=== PATIENT | male | born 1940 | race Caucasian/White ===

== ENCOUNTER 2016-12-11 17:20 | Emergency (ER) | payer OTHER ==
[~2016-12-11] VITALS: Ht 172.7 cm; Wt 82.2 kg
[~2016-12-11 17:20] MED LIST: ACET-1256 PO; ALFU10TA2 PO; AMIO200T4 PO; ASPCH81X PO; CMD/25 PO; IPRA0.032 NAE; LISI40TA PO; METO50TA16 PO; PENI-82 PO; REPA1TAB40 PO; ROSU40TA PO; TRAM-10 PO
[2016-12-11 17:29] VITALS: TEMP 36.8; Ht 172.7 cm; Wt 82.2 kg
--- NOTE | 2016-12-11 18:32 | EMERGENCY ROOM VISIT NOTE ---
History Report prepared by Anna Marie: Farrah Vanegas Under the Supervision of: Dr. Roland Redd M.D. First contact with patient: 18:21 Chief Complaint: SWELLING TO EXTREMITY Stated Complaint: SWELLING & DISCOLORATION OF LF LEG & ANKLE History of Present Illness The patient is a 76 year old male who presents to the Emergency Room with complaints of constant swelling to the left lower extremity beginning one week prior to arrival. The patient states that he hit is leg while working in his basement last week. Since then bruising has worsened. The patient is experiencing pain with walking. He denies numbness to foot or abdominal pain. The patient is on Coumadin and his level this morning was 2.8. He denies any other symptoms at this time. 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 Review of Systems See HPI for pertinent positives & negatives. A total of 10 systems reviewed and were otherwise negative. Past Medical & Surgical Medical Problems: (1) Dyslipidemia (2) Hypertension (3) Paroxysmal atrial fibrillation (4) Type 2 diabetes mellitus Surgical Problems: (1) Hx of tonsillectomy Family History FHx: heart disease Social History Smoking Status: Never Smoker Alcohol Use: none Marital Status: Housing Status: lives with family Occupation Status: retired Current/Historical Medications Scheduled Alfuzosin Hcl (Uroxatral), 10 MG PO DAILY Amiodarone Hcl (Cordarone), 100 MG PO DAILY Aspirin (Aspirin Chewable), 81 MG PO DAILY Diclofenac Sodium (Topical) (Voltaren 1% Top Gel), 1 APPLN TOP PRN UD Ipratropium [place] (Nasal) (Atrovent), 2 PUFFS KLARISSA TID PRN Lisinopril (Zestril), 40 MG PO DAILY Metformin Hcl (Glucophage), 500 MG PO DAILY Metoprolol Tartrate (Lopressor) (Lopressor), 12.5 MG PO BID Repaglinide (Prandin), 2 MG PO AC Rosuvastatin Calcium (Crestor), 40 MG PO DAILY Sitagliptin Phosphate (Januvia), 100 MG PO DAILY Tramadol (Ultram), 50 MG PO TID PRN Warfarin Sod (Coumadin), 1.25 MG PO WK Warfarin Sod (Coumadin), 2.5 MG PO mon & fri Scheduled PRN Acetaminophen (Tylenol), 2 TAB PO Q6 PRN for Pain or Fever Allergies Coded Allergies: Codeine (Verified Allergy, Mild, RASH, 07/19/16) CAUSES NAUSEA Dust Mite Extract (Verified Allergy, Mild, , 07/19/16) POLLEN (Verified Allergy, Mild, , 07/19/16) Physical Exam Vital Signs Date Time Temp Pulse Resp B/P Pulse Ox O2 Delivery O2 Flow Rate FiO2 12/11/16 20:59 69 18 159/87 97 12/11/16 19:15 69 18 159/87 97 Room Air 12/11/16 17:29 36.8 72 16 156/91 96 Room Air Physical Exam GENERAL: Patient is well appearing and in no acute distress. HEENT: No acute trauma, normocephalic atraumatic, mucous membranes moist, no nasal congestion, no scleral icterus. NECK: No stridor, no adenopathy, no meningismus, trachea is midline. LUNGS: No dyspnea. Clear to auscultation and equal bilaterally. No wheeze, no rhonchi. HEART: Regular rate and rhythm. No murmurs, rubs, gallops appreciated. ABDOMEN: Soft, nontender, bowel sounds positive, no masses appreciated, no peritonitis. BACK: No midline tenderness, no CVA tenderness EXTREMITIES: Ecchymosis and swelling to left anterior lower leg extending to ankle, dependent bruising of left ankle/heel, mild bruising of left lateral distal thigh. Mild abrasion with bruising over left anterior knee. NEUROLOGIC: Alert and oriented, no acute motor or sensory deficits, no focal weakness, cranial nerves grossly intact. SKIN: No rash, no jaundice, no diaphoresis. Medical Decision & Procedures ER Provider Diagnostic Interpretation: X ray results are stated below per my interpretation and the radiologist's interpretation. LEFT KNEE 3 VIEWS HISTORY: left knee trauma COMPARISON: None. FINDINGS: There is no fracture or dislocation. Anterior and lateral soft tissue swelling. No knee effusion. No radiopaque foreign bodies. IMPRESSION: No fractures. Electronically signed by: Galindo Knapp M.D. 12/11/2016 7:10 PM Dictated Date/Time: 12/11/2016 7:09 PM Laboratory Results 12/11/16 18:40 Red Blood Count 4.18, Mean Corpuscular Volume 101.0, Mean Corpuscular Hemoglobin 34.0, Mean Corpuscular Hemoglobin Concent 33.6, Mean Platelet Volume 9.8, Neutrophils (%) (Auto) 61.2, Lymphocytes (%) (Auto) 24.0, Monocytes (%) ( Auto) 12.2, Eosinophils (%) (Auto) 1.8, Basophils (%) (Auto) 0.5, Neutrophils # (Auto) 4.00, Lymphocytes # (Auto) 1.57, Monocytes # (Auto) 0.80, Eosinophils # ( Auto) 0.12, Basophils # (Auto) 0.03 12/11/16 18:40 12/11/16 19:33 Test 12/11/16 18:40 12/11/16 19:33 White Blood Count 6.54 K/uL (4.8-10.8) Red Blood Count 4.18 M/uL (4.7-6.1) Hemoglobin 14.2 g/dL (14.0-18.0) Hematocrit 42.2 % (42-52) Mean Corpuscular Volume 101.0 fL (80-100) Mean Corpuscular Hemoglobin 34.0 pg (25-34) Mean Corpuscular Hemoglobin Concent 33.6 g/dl (32-36) Platelet Count 195 K/uL (130-400) Mean Platelet Volume 9.8 fL (7.4-10.4) Neutrophils (%) (Auto) 61.2 % Lymphocytes (%) (Auto) 24.0 % Monocytes (%) (Auto) 12.2 % Eosinophils (%) (Auto) 1.8 % Basophils (%) (Auto) 0.5 % Neutrophils # (Auto) 4.00 K/uL (1.4-6.5) Lymphocytes # (Auto) 1.57 K/uL (1.2-3.4) Monocytes # (Auto) 0.80 K/uL (0.11-0.59) Eosinophils # (Auto) 0.12 K/uL (0-0.5) Basophils # (Auto) 0.03 K/uL (0-0.2) RDW Standard Deviation 49.5 fL (36.4-46.3) RDW Coefficient of Variation 13.4 % (11.5-14.5) Immature Granulocyte % (Auto) 0.3 % Immature Granulocyte # (Auto) 0.02 K/uL (0.00-0.02) Prothrombin Time 26.2 SECONDS (9.0-12.0) Prothromb Time International Ratio 2.4 (0.9-1.1) Anion Gap 7.0 mmol/L (3-11) Est Creatinine Clear Calc Drug Dose 57.9 ml/min Estimated GFR () 74.1 Estimated GFR (Non- 64.0 BUN/Creatinine Ratio 28.5 (10-20) Calcium Level 9.3 mg/dl (8.5-10.1) Total Creatine Kinase 69 U/L (39-308) Laboratory results as reviewed by me. ED Course 1823: The patient was evaluated in room C7. A complete history and physical exam was performed. 2025: I reevaluated the patient and he is feeling good. 2033: Reevaluated the patient. Discussed results and discharge instructions: He verbalized understanding and agreement. The patient is ready for discharge. Medical Decision Differential: Fracture, Dislocation, Cellulitis, Septic Joint, Ligamentous Injury, Effusion, DVT, amongst other pathologies entertained. 76 yr old male arrives for evaluation of bruising of left lower extremity. Has recent injury to anterior knee while on Coumadin. Bruising consistent with large area of hematoma and dependent drainage. Pulses/sensation/movement intact. No evidence infection. No evidence of compartment syndrome. Stable, no distress and stable throughout stay. Imaging without fracture. No evidence this is DVT and no indication for US at this time. No calf TTP, nor decreased pulses. Impression Primary Impression: Contusion of left knee Additional Impression: Hematoma of left lower extremity Scribe Attestation The scribe's documentation has been prepared under my direction and personally reviewed by me in its entirety. I confirm that the note above accurately reflects all work, treatment, procedures, and medical decision making performed by me. Departure Information Dispostion Home / Self-Care Referrals Ron Constantino D.O. (PCP) Forms HOME CARE DOCUMENTATION FORM, IMPORTANT VISIT INFORMATION, WORK / SCHOOL INSTRUCTIONS Patient Instructions ED Hematoma, My [facility] Health Problem Qualifiers Primary Impression: Contusion of left knee Encounter type: initial encounter Qualified Codes: S80.02XA - Contusion of left knee, initial encounter Additional Impression: Hematoma of left lower extremity Encounter type: initial encounter Qualified Codes: S80.12XA - Contusion of left lower leg, initial encounter
[2016-12-11 18:54] LABS: BASO % 0.5 %; BASO ABS # 0.03 K/uL (0-0.2); COMPLETE YES; EOS % 1.8 %; HEMATOCRIT 42.2 % (42-52); IG% 0.3 %; LYMPH ABS # 1.57 K/uL (1.2-3.4); MEAN CORPUSCULAR HGB CONC 33.6 g/dl (32-36); MEAN PLATELET VOLUME 9.8 fL (7.4-10.4); MONO % 12.2 %; NEUT % 61.2 %; PLATELET COUNT 195 K/uL (130-400); RED BLOOD COUNT 4.18 M/uL (4.7-6.1); WHITE BLOOD COUNT 6.54 K/uL (4.8-10.8)
[2016-12-11 19:07] LABS: INR 2.4 (0.9-1.1); PROTHROMBIN TIME (PATIENT) 26.2 SECONDS (9.0-12.0)
--- NOTE | 2016-12-11 19:11 | DIAGNOSTIC IMAGING REPORT ---
LEFT KNEE 3 VIEWS HISTORY: left knee trauma COMPARISON: None. FINDINGS: There is no fracture or dislocation. Anterior and lateral soft tissue swelling. No knee effusion. No radiopaque foreign bodies. IMPRESSION: No fractures. Electronically signed by: Galindo Knapp M.D. 12/11/2016 7:10 PM Dictated Date/Time: 12/11/2016 7:09 PM
[2016-12-11 19:14] LABS: BLOOD UREA NITROGEN 31 mg/dl (7-18); BUN/CREATININE RATIO 28.5 (10-20); CARBON DIOXIDE 26 mmol/L (21-32); CHLORIDE 107 mmol/L (98-107); GLUCOSE 94 mg/dl (70-99); SODIUM 140 mmol/L (136-145)
[2016-12-11] MEDS ORDERED: METO25TA56 PO (19:14)
[2016-12-11] MEDS ORDERED: CMD/25 PO (19:14)
[2016-12-11] MEDS ORDERED: DICL1GEL12 TOP (19:14)
[2016-12-11] MEDS ORDERED: GLC/500 PO (19:14)
[2016-12-11] MEDS ORDERED: SITA100T3 PO (19:14)
[2016-12-11] MEDS ORDERED: REPA2TAB12 PO (19:14)
[2016-12-11 20:44] LABS: CALCIUM 9.3 mg/dl (8.5-10.1)
[2016-12-11 20:59] VITALS: BP 159/87; PULSE 69; O2SAT 97
== END 2016-12-11 21:01 | disposition home or self-care (01) ==
LOC: C.EDB 17:22 → C.EDC 21:01
DX: S80.02XA Contusion of left knee, initial encounter (principal); S80.12XA Contusion of left lower leg, initial encounter; W22.8XXA Striking against or struck by other objects, initial encounter; E78.5 Hyperlipidemia, unspecified; I10 Essential (primary) hypertension; I48.0 Paroxysmal atrial fibrillation; E11.9 Type 2 diabetes mellitus without complications; Z82.49 Family history of ischemic heart disease and other diseases of the circulatory system; Z79.82 Long term (current) use of aspirin; Z79.01 Long term (current) use of anticoagulants; Z51.81 Encounter for therapeutic drug level monitoring

== ENCOUNTER 2017-11-18 06:40 | Inpatient (IN) | payer OTHER ==
[~2017-11-18] VITALS: Ht 162.6 cm; Wt 77.0 kg
[~2017-11-18 06:40] MED LIST changes: -ASPCH81X PO; -CMD/25 PO; +GLC/500 PO; -LISI40TA PO; -METO50TA16 PO; -PENI-82 PO; -REPA1TAB40 PO; -ROSU40TA PO; -TRAM-10 PO
[2017-11-18] MEDS ORDERED: METOPROLOL TARTRATE 50 MG TAB PO STA (06:52)
[2017-11-18] MEDS ORDERED: METOPROLOL TARTRATE 1 MG/ML VIAL IV STA (06:52)
[2017-11-18 07:03] LABS: BASO % 0.3 %; BASO ABS # 0.02 K/uL (0-0.2); EOS % 3.5 %; EOS ABS # 0.24 K/uL (0-0.5); HEMATOCRIT 39.6 % (42-52); IG# 0.02 K/uL (0.00-0.02); LYMPH ABS # 1.25 K/uL (1.2-3.4); MEAN CORPUSCULAR HEMOGLOBIN 32.8 pg (25-34); MEAN CORPUSCULAR HGB CONC 32.8 g/dl (32-36); MEAN PLATELET VOLUME 10.6 fL (7.4-10.4); MONO % 8.6 %; NEUT % 69.3 %; NEUT ABS # 4.82 K/uL (1.4-6.5); PLATELET COUNT 231 K/uL (130-400); RED CELL DISTRIBUTION WIDTH CV 13.3 % (11.5-14.5); RED CELL DISTRIBUTION WIDTH SD 48.3 fL (36.4-46.3); WHITE BLOOD COUNT 6.95 K/uL (4.8-10.8)
[2017-11-18 07:16] LABS: ALBUMIN 3.5 gm/dl (3.4-5.0); ALT/SGPT 16 U/L (12-78); AST/SGOT 8 U/L (15-37); BLOOD UREA NITROGEN 25 mg/dl (7-18); CALCIUM 9.1 mg/dl (8.5-10.1); CARBON DIOXIDE 23 mmol/L (21-32); CREATININE 1.32 mg/dl (0.60-1.40); GLUCOSE 215 mg/dl (70-99); LIPASE 132 U/L (73-393); POTASSIUM 4.2 mmol/L (3.5-5.1); SODIUM 139 mmol/L (136-145)
[2017-11-18 07:24] LABS: INR 1.8 (0.9-1.1); PTT PATIENT 32.1 SECONDS (21.0-31.0)
[2017-11-18 07:27] LABS: ALKALINE PHOSPHATASE 81 U/L (45-117); CKMB 0.8 ng/ml (0.5-3.6); TOTAL PROTEIN 7.5 gm/dl (6.4-8.2)
[2017-11-18] MEDS ORDERED: HYDR25TA5 PO (07:38)
[2017-11-18] MEDS ORDERED: GABA-113 PO (07:38)
[2017-11-18] MEDS ORDERED: IPRA0.03 NAE (07:38)
[2017-11-18] MEDS ORDERED: CLIN1LOT TOP (07:38)
[2017-11-18] MEDS ORDERED: VNTHFA/IN INH (07:38)
[2017-11-18] MEDS ORDERED: ACET-1693 PO (07:38)
[2017-11-18] MEDS ORDERED: MONT1CHW6 PO (07:38)
[2017-11-18] MEDS ORDERED: TERA5CAP PO (07:38)
[2017-11-18] MEDS ORDERED: GLCSR/500 PO (07:38)
--- NOTE | 2017-11-18 08:31 | EMERGENCY ROOM VISIT NOTE ---
History Report prepared by Anna Marie: Meg Mack Under the Supervision of: Dr. Jerry Coronel D.O. First contact with patient: 06:44 Chief Complaint: CARDIAC ASSESSMENT Stated Complaint: SHORTNESS OF BREATH/A-FIB Nursing Triage Summary: Pt brought in by EMS. Pt reports SOB and irreg heartbeat for a couple days. This morning it was worse. Pt has history of afib and is on coumadin. Pt given Cardizem 20 mg IV enroute. History of Present Illness The patient is a 77 year old male who presents to the Emergency Room by EMS with complaints of an irregular heartbeat and shortness of breath beginning a couple days ago. The patient has a history of atrial fibrillation. The patient states he was "shocked out of atrial fibrillation" four times with the last time being four years ago. The patient reports this is the first time he has noticed he is in atrial fibrillation. The patient is on Coumadin and Lopressor. He was given 20 mg of Cardizem by EMS. Presently, the patient reports he feels better than he did with the onset of his symptoms. Source of History: patient Onset: a couple days ago Position: other (generalized) Quality: other (irregular heartbeat) Timing: constant Associated Symptoms: + SOB Review of Systems See HPI for pertinent positives & negatives. A total of 10 systems reviewed and were otherwise negative. Past Medical & Surgical Medical Problems: (1) Dyslipidemia (2) Hypertension (3) Paroxysmal atrial fibrillation (4) Type 2 diabetes mellitus Surgical Problems: (1) Hx of tonsillectomy Family History FHx: heart disease Social History Smoking Status: Former Smoker Alcohol Use: none Marital Status: Housing Status: lives with family Occupation Status: retired Current/Historical Medications Scheduled Aspirin (Aspirin Chewable), 81 MG PO DAILY Clindamycin Phosphate (Topical (Cleocin-T), 1 APPLN TOP BID Diclofenac Sodium (Topical) (Voltaren 1% Top Gel), 1 APPLN TOP PRN UD Gabapentin (Neurontin), 300 MG PO TID Hydrochlorothiazide (Hydrochlorothiazide), 25 MG PO 1-2 times per week Lisinopril (Zestril), 40 MG PO DAILY Metformin HCl (Metformin HCl ER), 500 MG PO DAILY Metoprolol Tartrate (Lopressor) (Lopressor), 12.5 MG PO HS Montelukast Sodium (Singulair Chewable), 10 MG PO HS Repaglinide (Prandin), 2 MG PO TIDM Rosuvastatin Calcium (Crestor), 40 MG PO DAILY Sitagliptin Phosphate (Januvia), 100 MG PO DAILY Terazosin (Hytrin), 5 MG PO DAILY Tramadol (Ultram), 50 MG PO TID PRN Warfarin Sod (Coumadin), 1.25 MG PO WK Warfarin Sod (Coumadin), 2.5 MG PO [id number] Scheduled PRN Acetaminophen Tab (Tylenol), 650 MG PO Q6 PRN for Pain Albuterol Hfa (Ventolin Hfa), 2-4 PUFFS INH Q4H PRN for Shortness of Breath Ipratropium [place] (Nasal) (Ipratropium [place]), 2 SPRAYS KLARISSA 2-3 times daily PRN for drainage Allergies Coded Allergies: Codeine (Verified Allergy, Mild, RASH, 07/19/16) CAUSES NAUSEA Dust Mite Extract (Verified Allergy, Mild, , 07/19/16) POLLEN (Verified Allergy, Mild, , 07/19/16) Physical Exam Vital Signs Date Time Temp Pulse Resp B/P (MAP) Pulse Ox O2 Delivery O2 Flow Rate FiO2 11/18/17 07:25 119 107/74 11/18/17 07:25 90 107/74 11/18/17 07:10 118 24 96 11/18/17 06:49 110/77 11/18/17 06:46 108 11/18/17 06:46 207/189 11/18/17 06:46 96 Room Air 11/18/17 06:39 36.6 124 28 110/77 96 Room Air Physical Exam CONSTITUTIONAL/VITAL SIGNS: Reviewed / noted above. GENERAL: Non-toxic in appearance. INTEGUMENTARY: Warm, dry, and [place]. HEAD: Normocephalic. EYES: without scleral icterus or trauma. ENT/OROPHARYNX: clear and moist. LYMPHADENOPATHY/NECK: Is supple without lymphadenopathy or meningismus. RESPIRATORY: Lungs clear and equal. CARDIOVASCULAR: Systolic ejection murmur. Pulses irregular slightly rapid. GI/ABDOMEN: Soft and nontender. No organomegaly or pulsatile mass. No rebound or guarding. Normal bowel sounds. EXTREMITIES: Warm and well perfused. BACK: No CVA tenderness. NEUROLOGICAL: Intact without focal deficits. PSYCHIATRIC: normal affect. MUSCULOSKELETAL: Normally developed with good muscle tone. Medical Decision & Procedures ER Provider Diagnostic Interpretation: Radiology results as stated below per my review and radiologist interpretation: CHEST ONE VIEW PORTABLE FINDINGS: The heart is mildly enlarged. There is no elevation of the interstitium with septal edema. There is no lobar consolidation. There are no pleural effusions. IMPRESSION: Radiographic evidence of interstitial edema. Clinical and radiographic follow-up is recommended. Electronically signed by: Osmel Kingsley MD Laboratory Results 11/18/17 06:50 Red Blood Count 3.96, Mean Corpuscular Volume 100.0, Mean Corpuscular Hemoglobin 32.8, Mean Corpuscular Hemoglobin Concent 32.8, Mean Platelet Volume 10.6, Neutrophils (%) (Auto) 69.3, Lymphocytes (%) (Auto) 18.0, Monocytes (%) ( Auto) 8.6, Eosinophils (%) (Auto) 3.5, Basophils (%) (Auto) 0.3, Neutrophils # ( Auto) 4.82, Lymphocytes # (Auto) 1.25, Monocytes # (Auto) 0.60, Eosinophils # ( Auto) 0.24, Basophils # (Auto) 0.02 11/18/17 06:50 Test 11/18/17 06:46 11/18/17 06:50 White Blood Count 6.95 K/uL (4.8-10.8) Red Blood Count 3.96 M/uL (4.7-6.1) Hemoglobin 13.0 g/dL (14.0-18.0) Hematocrit 39.6 % (42-52) Mean Corpuscular Volume 100.0 fL (80-100) Mean Corpuscular Hemoglobin 32.8 pg (25-34) Mean Corpuscular Hemoglobin Concent 32.8 g/dl (32-36) Platelet Count 231 K/uL (130-400) Mean Platelet Volume 10.6 fL (7.4-10.4) Neutrophils (%) (Auto) 69.3 % Lymphocytes (%) (Auto) 18.0 % Monocytes (%) (Auto) 8.6 % Eosinophils (%) (Auto) 3.5 % Basophils (%) (Auto) 0.3 % Neutrophils # (Auto) 4.82 K/uL (1.4-6.5) Lymphocytes # (Auto) 1.25 K/uL (1.2-3.4) Monocytes # (Auto) 0.60 K/uL (0.11-0.59) Eosinophils # (Auto) 0.24 K/uL (0-0.5) Basophils # (Auto) 0.02 K/uL (0-0.2) RDW Standard Deviation 48.3 fL (36.4-46.3) RDW Coefficient of Variation 13.3 % (11.5-14.5) Immature Granulocyte % (Auto) 0.3 % Immature Granulocyte # (Auto) 0.02 K/uL (0.00-0.02) Prothrombin Time 18.3 SECONDS (9.0-12.0) Prothromb Time International Ratio 1.8 (0.9-1.1) Activated Partial Thromboplast Time 32.1 SECONDS (21.0-31.0) Partial Thromboplastin Ratio 1.2 Anion Gap 6.0 mmol/L (3-11) Est Creatinine Clear Calc Drug Dose 43.3 ml/min Estimated GFR () 59.0 Estimated GFR (Non- 50.9 BUN/Creatinine Ratio 19.1 (10-20) Calcium Level 9.1 mg/dl (8.5-10.1) Total Bilirubin 0.5 mg/dl (0.2-1) Direct Bilirubin 0.1 mg/dl (0-0.2) Aspartate Amino Transf (AST/SGOT) 8 U/L (15-37) Alanine Aminotransferase (ALT/SGPT) 16 U/L (12-78) Alkaline Phosphatase 81 U/L (45-117) Total Creatine Kinase 46 U/L (39-308) Creatine Kinase MB 0.8 ng/ml (0.5-3.6) Creatine Kinase MB Ratio 1.7 (0-3.0) Troponin I < 0.015 ng/ml (0-0.045) Total Protein 7.5 gm/dl (6.4-8.2) Albumin 3.5 gm/dl (3.4-5.0) Lipase 132 U/L (73-393) Thyroid Stimulating Hormone (TSH) 2.010 uIu/ml (0.300-4.500) Laboratory results as stated above per my review. Medications Administered Medications (Trade) Dose Ordered Sig/Devaughn Route Start Time Stop Time Status Last Admin Dose Admin Metoprolol Tartrate (Lopressor Iv) 5 mg NOW STAT IV 11/18/17 06:52 11/18/17 06:53 DC 11/18/17 07:25 5 MG Metoprolol Tartrate (Lopressor Tab) 25 mg NOW STAT PO 11/18/17 06:52 11/18/17 06:53 DC 11/18/17 07:26 25 MG ECG Per My Interpretation Indication: SOB/dyspnea Rate (beats per minute): 105 Rhythm: atrial fibrillation Findings: no ectopy, other (no ST elevation) ED Course 0648: Previous medical records were reviewed. The patient was evaluated in room B9. A complete history and physical examination was performed. 0652: Ordered Lopressor Tab 25 mg PO, Lopressor IV 5 mg IV. 0756: Discussed the patient's case with Dr. Macias-Cardiology. He recommends bringing the patient into the hospital for further evaluation. 0807: I updated the patient on his test results. He is agreeable to the treatment plan. 0809: Discussed the patient's case Diana Zelaya. The patient will be evaluated for further treatment and disposition. Medical Decision the differential was considered includes acute myocardial infarction, acute coronary syndrome, myocarditis, pericarditis, pericardial effusions /tamponad, esophageal perforation, thoracic aortic dissection, pulmonary embolism, pneumonia, pneumothorax, pancreatitis, shingles, acute cholecystitis, perforated abdominal viscus. This is a 77-year-old male who presents to the ED with a chief complaint of shortness of breath and palpitations. The patient has a history of A. fib. He states that he is normally not in A. fib but developed symptoms this morning. He was found to be in rapid A. fib with a heart rate around 130-160 by EMS. He was provided 20 mg of IV Cardizem for this and on his arrival his heart rate is around 100 and atrial fibrillation. The patient reports being cardioverted 4 years ago for his atrial fibrillation. Since this time he has not had any problems with it. He reports being on Coumadin. The patient also has a history of diabetes, hypertension or high cholesterol. His vital signs are stable. The patient normally takes Lopressor 25 mg at bedtime. In addition to the EMS Cardizem, the patient was given Lopressor 5 mg IV as well as 25 mg oral metoprolol.. The patient's exam was suggestive of rapid irregular heart rate. No other significant exam findings were relevant from the acute standpoint. He does have a systolic ejection murmur. His CBC and complete metabolic panel were unremarkable. INR is 1.8. TSH was normal, chest x-ray revealed some mild congestive changes. The patient had heart rate control. I spoke with Dr. Macias about the patient. The patient will be seen by the hospitalist service for further inpatient evaluation and care. Medication Reconcilliation Current Medication List: was personally reviewed by me Blood Pressure Screening Patient's blood pressure: Normal blood pressure Consults Time Called: 075 Consulting Physician: Dr. Macias-Cardiology Returned Call: 075 Discussed the patient's case with Dr. Macias-Cardiology. He recommends bringing the patient into the hospital for further evaluation. Additional Consults: Time Called: 08 Consulted Physician: Diana Zelaya Returned Call: 08 Additional Comments: Discussed the patient's case Diana Zelaya. The patient will be evaluated for further treatment and disposition. Impression Primary Impression: Atrial fibrillation with rapid ventricular response Scribe Attestation The scribe's documentation has been prepared under my direction and personally reviewed by me in its entirety. I confirm that the note above accurately reflects all work, treatment, procedures, and medical decision making performed by me. Departure Information Dispostion Being Evaluated By Hospitalist Referrals Ron Constantino D.O. (PCP) Patient Instructions My [facility]
--- NOTE | 2017-11-18 08:52 | DIAGNOSTIC IMAGING REPORT ---
CHEST ONE VIEW PORTABLE CLINICAL HISTORY: Fever, sepsis, shortness of breath COMPARISON STUDY: 01/21/2013 FINDINGS: The heart is mildly enlarged. There is elevation of the interstitium with septal edema. There is no lobar consolidation. There are no pleural effusions.[ IMPRESSION: Radiographic evidence of interstitial edema. Clinical and radiographic follow-up is recommended. Electronically signed by: Osmel Kingsley M.D. 11/18/2017 7:09 AM Dictated Date/Time: 11/18/2017 7:08 AM
[2017-11-18] MEDS ORDERED: ACETAMINOPHEN 325 MG TAB PO PRN (09:00)
[2017-11-18] MEDS ORDERED: POLYETHYLENE (MIRALAX) 17 GM PACK PO PRN (09:00)
[2017-11-18] MEDS ORDERED: NITROGLYCERIN 0.4 MG SL PER TAB CHARGE SL PRN (09:00)
[2017-11-18] MEDS ORDERED: ONDANSETRON INJ 2 MG/ML 2 ML VIAL IV PRN (09:00)
[2017-11-18] MEDS ORDERED: DEXTROSE 50% 50 ML SYR IV PRN (09:15)
[2017-11-18] MEDS ORDERED: GLUCAGON FOR INJ 1 MG VIAL SQ PRN (09:15)
[2017-11-18] MEDS ORDERED: GLUCOSE 10 TABS/TUBE PO PRN (09:15)
[2017-11-18] MEDS ORDERED: GLUCOSE 40% GEL 15 GM TUBE PO PRN (09:15)
[2017-11-18] MEDS ORDERED: ALBUTEROL HFA 8 GM INHALER INH PRN (09:30)
[2017-11-18] MEDS ORDERED: TRAMADOL HCL 50 MG TAB PO PRN (09:30)
[2017-11-18] MEDS ORDERED: IPRATROPIUM BROMIDE NASAL SPRAY 0.06% 15ML NAE PRN (09:30)
[2017-11-18] MEDS ORDERED: WARFARIN SOD 5 MG TAB PO ONE ×2 (09:45→16:00)
--- NOTE | 2017-11-18 09:58 | History and Physical ---
History & Physical Date & Time of Service: Nov 18, 2017 at 09:30 Chief Complaint: Shortness Of Breath/A-Fib Primary Care Physician: Fito Laguerre M.D. History of Present Illness Source: patient, clinic records, hospital records Pt is 77 y/o M with PMH PAF s/p several cardioversion, on chronic Coumadin, HTN , HLD, prostate CA s/p radiation, DM II presented to ER with c/o palpitations and SOB. Patient states during the middle the night started with palpitations and increased shortness of breath. Patient reports chronic baseline shortness of breath however the past several days has noticed increased shortness of breath. Patient thinks last time was in A. fib was approximately 4 years ago. His amiodarone was discontinued in June 2017 secondary to his progressive shortness of breath, pulmonary function tests benign. In past patient had been on sotalol. Patient follows with Dr. Laguerre cardiology. Denies any recent illness or fevers. Patient reports chronic rhinorrhea and denies any increased symptoms. Denies fever/chills, diaphoresis, N/V/D/C, PINON, dizziness, syncope, vision changes, neck pain, CP, orthopnea, cough, sore throat, choking, otalgia, abdominal pain, paresthesias, weakness, extremity weakness, extremity edema, rashes, urinary symptoms, weight loss. History echo 02/2017: EF: 64%, grade 2 diastolic dysfunction, mild mitral valve prolapse with mild mitral regurgitation, pulmonary hypertension Past Medical/Surgical History Medical Problems: (1) Allergic rhinitis Status: Chronic (2) Back pain Status: Chronic (3) Dyslipidemia Status: Chronic (4) History of cardioversion Status: Resolved (5) Hypertension Status: Chronic (6) PAF (paroxysmal atrial fibrillation) Status: Chronic (7) Paroxysmal atrial fibrillation Status: Resolved (8) Prostate CA Permanent Comment: s/p radiation Status: Chronic (9) Type 2 diabetes mellitus Status: Chronic Surgical Problems: (1) Hx of cataract surgery Status: Resolved (2) Hx of tonsillectomy Status: Resolved (3) Hx of tonsillectomy Status: Resolved Family History Diabetes mellitus FHx: heart disease Hypertension Skin cancer Social History Smoking Status: Former Smoker Smokeless Tobacco Use: No Alcohol Use: 1 drink daily Drug Use: none Marital Status: Occupational Status: retired Immunizations History of Influenza Vaccine: N/A Influenza Vaccine Date: May 05, 2011 History of Tetanus Vaccine?: utd History of Pneumococcal: Yes History of Hepatitis B Vaccine: No Allergies Coded Allergies: Codeine (Verified Allergy, Mild, RASH, 07/19/16) CAUSES NAUSEA Dust Mite Extract (Verified Allergy, Mild, , 07/19/16) POLLEN (Verified Allergy, Mild, , 07/19/16) Home Medications Scheduled Aspirin (Aspirin Chewable), 81 MG PO DAILY Clindamycin Phosphate (Topical (Cleocin-T), 1 APPLN TOP BID Gabapentin (Neurontin), 300 MG PO TID Hydrochlorothiazide (Hydrochlorothiazide), 25 MG PO 1-2 times per week Lisinopril (Zestril), 40 MG PO DAILY Metformin HCl (Metformin HCl ER), 500 MG PO DAILY Metoprolol Tartrate (Lopressor) (Lopressor), 12.5 MG PO HS Montelukast Sodium (Singulair Chewable), 10 MG PO HS Repaglinide (Prandin), 2 MG PO TIDM Rosuvastatin Calcium (Crestor), 40 MG PO HS Sitagliptin Phosphate (Januvia), 100 MG PO DAILY Terazosin (Hytrin), 5 MG PO DAILY Tramadol (Ultram), 50 MG PO TID PRN Warfarin Sod (Coumadin), 1.25 MG PO UD Warfarin Sod (Coumadin), 2.5 MG PO UD Scheduled PRN Acetaminophen Tab (Tylenol), 650 MG PO Q6 PRN for Pain Albuterol Hfa (Ventolin Hfa), 2 PUFFS INH Q4H PRN for Shortness of Breath Diclofenac Sodium (Topical) (Voltaren 1% Top Gel), 1 APPLN TOP BID PRN for Pain Ipratropium [place] (Nasal) (Ipratropium [place]), 2 SPRAYS KLARISSA BID PRN for drainage Review of Systems See HPI for pertinent positives & negatives. All other systems reviewed and were otherwise negative Physical Exam Vital Signs Date Time Temp Pulse Resp B/P (MAP) Pulse Ox O2 Delivery O2 Flow Rate FiO2 11/18/17 09:09 119 11/18/17 08:30 86 30 92 Room Air 11/18/17 08:01 90/72 11/18/17 08:00 97 32 95 11/18/17 07:30 110 25 95 11/18/17 07:25 119 107/74 11/18/17 07:25 90 107/74 11/18/17 07:10 118 24 96 11/18/17 06:49 110/77 11/18/17 06:46 108 11/18/17 06:46 207/189 11/18/17 06:46 96 Room Air 11/18/17 06:39 36.6 124 28 110/77 96 Room Air General Appearance: WD/WN, no apparent distress Head: normocephalic, atraumatic Eyes: normal inspection, sclerae normal ENT: hearing grossly normal, pharynx normal, + pertinent finding (Mucous membranes moist) Neck: supple, no JVD, trachea midline Respiratory/Chest: lungs clear, normal breath sounds, no respiratory distress Cardiovascular: + systolic murmur, + irregularly irregular (Rate 90s) Abdomen/GI: normal bowel sounds, non tender, soft Extremities/Musculoskelatal: no calf tenderness, normal capillary refill, no pedal edema, non-tender Neurologic/Psych: alert, normal mood/affect, oriented x 3 Skin: normal color, warm/dry, + pertinent finding (Erythematous papules to nose ) Diagnostics Laboratory Results Results Past 24 Hours Test 11/18/17 06:46 11/18/17 06:50 Range/Units White Blood Count 6.95 4.8-10.8 K/uL Red Blood Count 3.96 4.7-6.1 M/uL Hemoglobin 13.0 14.0-18.0 g/dL Hematocrit 39.6 42-52 % Mean Corpuscular Volume 100.0 80-100 fL Mean Corpuscular Hemoglobin 32.8 25-34 pg Mean Corpuscular Hemoglobin Concent 32.8 32-36 g/dl Platelet Count 231 130-400 K/uL Mean Platelet Volume 10.6 7.4-10.4 fL Neutrophils (%) (Auto) 69.3 % Lymphocytes (%) (Auto) 18.0 % Monocytes (%) (Auto) 8.6 % Eosinophils (%) (Auto) 3.5 % Basophils (%) (Auto) 0.3 % Neutrophils # (Auto) 4.82 1.4-6.5 K/uL Lymphocytes # (Auto) 1.25 1.2-3.4 K/uL Monocytes # (Auto) 0.60 0.11-0.59 K/uL Eosinophils # (Auto) 0.24 0-0.5 K/uL Basophils # (Auto) 0.02 0-0.2 K/uL RDW Standard Deviation 48.3 36.4-46.3 fL RDW Coefficient of Variation 13.3 11.5-14.5 % Immature Granulocyte % (Auto) 0.3 % Immature Granulocyte # (Auto) 0.02 0.00-0.02 K/uL Prothrombin Time 18.3 9.0-12.0 SECONDS Prothromb Time International Ratio 1.8 0.9-1.1 Activated Partial Thromboplast Time 32.1 21.0-31.0 SECONDS Partial Thromboplastin Ratio 1.2 Sodium Level 139 136-145 mmol/L Potassium Level 4.2 3.5-5.1 mmol/L Chloride Level 110 98-107 mmol/L Carbon Dioxide Level 23 21-32 mmol/L Anion Gap 6.0 3-11 mmol/L Blood Urea Nitrogen 25 7-18 mg/dl Creatinine 1.32 0.60-1.40 mg/dl Est Creatinine Clear Calc Drug Dose 43.3 ml/min Estimated GFR () 59.0 Estimated GFR (Non- 50.9 BUN/Creatinine Ratio 19.1 10-20 Random Glucose 215 70-99 mg/dl Calcium Level 9.1 8.5-10.1 mg/dl Magnesium Level 1.9 1.8-2.4 mg/dl Total Bilirubin 0.5 0.2-1 mg/dl Direct Bilirubin 0.1 0-0.2 mg/dl Aspartate Amino Transf (AST/SGOT) 8 15-37 U/L Alanine Aminotransferase (ALT/SGPT) 16 12-78 U/L Alkaline Phosphatase 81 45-117 U/L Total Creatine Kinase 46 39-308 U/L Creatine Kinase MB 0.8 0.5-3.6 ng/ml Creatine Kinase MB Ratio 1.7 0-3.0 Troponin I < 0.015 0-0.045 ng/ml Total Protein 7.5 6.4-8.2 gm/dl Albumin 3.5 3.4-5.0 gm/dl Lipase 132 73-393 U/L Thyroid Stimulating Hormone (TSH) 2.010 0.300-4.500 uIu/ml Diagnostic Radiology CXR: IMPRESSION: Radiographic evidence of interstitial edema. Clinical and radiographic follow-up is recommended. EKG EKG: A. fib RVR, rate 102 Impression Assessment and Plan ATRIAL FIBRILLATION RVR Patient with history of PAF on chronic Coumadin. History of several cardioversions in the past. Amiodarone was discontinued 06/2017. History of being on sotalol in the past. Patient reports increased SOB past 2 days and during the night started with palpitations, no CP. Patient given Cardizem 20 mg IV by EMS for pulse 130-160. In ER patient given Lopressor 5 mg IV and Lopressor 25 mg p.o. with rate down to 90s occasional 116 to 120 back down to 90s. BP 90/72, 96% on room air, respirations 24, afebrile. No leukocytosis. Initial troponin negative. TSH: 2. INR: 1.8 -Monitor Vitals -Repeat EKG in am -Will trend troponin -Echo -Continue Coumadin -INR in a.m -Lopressor 2.5mg IV Q6H prn HR>110 with holding parameters -Cardiology consult CHRONIC ANTICOAGULATION SECONDARY TO PAF INR: 1.8. -Continue Coumadin HTN After Cardizem and Lopressor current BP 90/72 -Resume lisinopril tomorrow a.m., continue metoprolol with holding parameters HLD -Continue Crestor DM II H A1c 6.5 and 07/2017. -Hold home oral agents -H A1c in a.m. -NovoLog sliding scale and Lantus per protocol HISTORY PROSTATE CA S/P RADIATION -Continue Hytrin ALLERGIC RHINITIS -Continue Singulair CHRONIC BACK PAIN -Continue tramadol as needed pain DVT Prophylaxis -coumadin Disposition admit tele Full Code as per discussion with pt Follows with Dr Constantino for routine care Pt was seen with Dr Lizama. See addendum Attending Note: Patient is a77 yr male with PMH of Afib on chronic anticoagulation presents with history of palpitations and worsening SOB. Previously on Sotolol and amiodarone. Follows with . 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 States he has been using his albuterol inhaler more since last 2 days. Had PFTs in JUN 2017. Reports requiring albuterol secondary to chronic allergies. Denies chest pain, dizziness, fever, chills, diarrhea, dysuria. Received Cardizem En route to ED and Lopressor in ED. Physical Exam: Vitals signs as noted above General Appearance:Moderately built and nourished, no apparent distress Head: normocephalic, Atraumatic Eyes: normal inspection, EOMI, PERRL Neck: supple, Trachea midline Respiratory/Chest: Normal breath sounds, CTA Cardiovascular: Irregularly Irregular, + murmur Abdomen/GI:Soft, Non tender, Bowel sounds present Extremities/Musculoskelatal:normal inspection, 1+ b/l edema Neurologic/Psych:AAOX3, grossly no focal neurological deficits Skin:normal color,warm Assessment and Plan: Atrial Fibrillation RVR: TSH: normal CXR:The heart is mildly enlarged. There is elevation of the interstitium with septal edema Monitor electrolytes Continue metoprolol IV Lopressor PRN Continue Coumadin Monitor INR Cardiology consulted Trend Cardiac enzymes, Update ECHO I personally reviewed the record. Patient is interviewed and examined at bedside. Patient's care is coordinated with Diana Sawyer PA-C. Please refer to the documentation above for details of patient's presentation and for discussion of other issues. Resuscitation Status Full code VTE Prophylaxis Will order VTE Prophylaxis: Yes Additional Copies To Ron Constantino D.O.
[2017-11-18] MEDS ORDERED: IV FLUIDS COMPLETED PRN (10:00)
[2017-11-18] MEDS ORDERED: SODIUM CHLORIDE 0.9% 1000ML 1,000 ML IV SCH (10:30)
[2017-11-18] MEDS ORDERED: TRAM-10 PO (10:40)
[2017-11-18] MEDS ORDERED: ROSU40TA PO (10:40)
[2017-11-18] MEDS ORDERED: LISI40TA PO (10:40)
[2017-11-18] MEDS ORDERED: ASPCH81X PO (10:40)
[2017-11-18] MEDS ORDERED: CMD/25 PO ×2 (10:48→19:14)
[2017-11-18] MEDS ORDERED: LEVALBUTEROL 0.63MG/3 ML NEB INH PRN (12:15)
[2017-11-18 12:26] VITALS: BP 139/78; PULSE 132; TEMP 37.2; Ht 162.6 cm; Wt 77.0 kg
[2017-11-18] MEDS: ASPIRIN 81 MG ECTAB PO SCH (13:31)
[2017-11-18] MEDS: METOPROLOL TARTRATE 25 MG TAB PO SCH ×2 (13:31→20:20)
[2017-11-18] MEDS: INSULIN ASPART 100 UNITS/ML 3 ML PEN SC SCH ×3 (13:35→20:44)
[2017-11-18] MEDS: GABAPENTIN 300 MG CAP PO SCH ×2 (14:20→20:19)
[2017-11-18] MEDS ORDERED: HEPARIN IV BOLUS 5,000 UNIT in SYRINGE 0 ML IV ONE (15:15)
[2017-11-18 15:20] VITALS: BP 124/82; PULSE 84; TEMP 36.6; O2SAT 93
--- NOTE | 2017-11-18 15:21 | CARDIOLOGY CONSULTATION ---
DATE OF CONSULTATION: 11/18/2017 REFERRING PHYSICIAN: Dr. Steffen Lizama REASON FOR CONSULTATION: Atrial fibrillation with rapid ventricular response. HISTORY OF PRESENT ILLNESS: Mr. Schultz is a 77-year-old gentleman who is well-known to the cardiology service. He typically follows with Dr. Fito Laguerre in the outpatient setting. He carries a history of paroxysmal atrial fibrillation, previously controlled in sinus rhythm with amiodarone. Amiodarone discontinued in June due dyspnea on exertion. Pulmonary function testing unremarkable. Also, previously treated with sotalol. The patient noted worsening dyspnea on exertion and an irregular heartbeat for approximately the last 3 days. Symptoms worsened and he came to the Emergency Department for further evaluation. In the ER, he was noted to be in atrial fibrillation with rapid ventricular response. He was treated with intravenous metoprolol as well as oral metoprolol. His heart rate improved. He is admitted for further evaluation and treatment. Currently, the patient reports dyspnea with minimal exertion. He remained in atrial fibrillation with rapid ventricular response with heart rates up to 133 beats per minute on telemetry. INR is subtherapeutic. Denies orthopnea or PND. No lower extremity edema. No recent weight changes. Denies any change in respiratory symptoms with discontinuation of amiodarone. INR has been subtherapeutic since 10/06/2017. Aside from dyspnea with exertion, the patient offers no complaints at this time. REVIEW OF SYSTEMS: The pertinent positives noted above, a comprehensive 10-system review is otherwise negative. PAST MEDICAL HISTORY: 1. Paroxysmal atrial fibrillation, previously maintained in sinus rhythm with amiodarone -- discontinued in June 2017. 2. Mitral regurgitation -- graded as mild per most recent echocardiogram in 02/2017. 3. Mitral valve prolapse. 4. Grade 2 diastolic dysfunction. 5. Dyslipidemia. 6. Hypertension. 7. Evidence of elevated pulmonary artery pressure per echocardiogram. 8. Chronic back pain. 9. Diabetes. PAST SURGICAL HISTORY: 1. Transrectal biopsy of the prostate. 2. Sacroiliac joint injection. 3. Tonsil and adenoidectomy. 4. Cataract removal with lens insertion. 5. Colonoscopy. SOCIAL HISTORY: The patient is a former tobacco user, [id number] history, quitting in 1971. FAMILY HISTORY: Negative for premature CAD or sudden cardiac , however, noncontributory given the patient's advanced age. ALLERGIES: ENVIRONMENTAL, CODEINE. CURRENT OUTPATIENT MEDICATIONS: 1. Lopressor 12.5 mg at bedtime. 2. Tylenol as needed. 3. ProAir inhaler as needed. 4. Aspirin 81 mg daily. 5. Warfarin 1.25 mg on Wednesday, 2.5 mg all other days as directed by the anticoagulation clinic. 6. Diclofenac gel. 7. Gabapentin 300 mg 3 times a day. 8. Hydrochlorothiazide 1 tablet 1-2 days per week. 9. Januvia 1 tablet daily 100 mg. 10. Lisinopril 40 mg daily. 11. Metformin 500 mg daily. 12. Singulair 10 mg at bedtime. 13. Prandin 2 mg 3 times daily 15 minutes before each meal. 14. Crestor 40 mg daily. 15. Hytrin 5 mg daily. 16. Tramadol 50 mg 3 times a day as needed for pain. DIAGNOSTIC DATA: ECG on admission is atrial fibrillation, low voltage atrial fibrillation with rapid ventricular response, ventricular rate 105 beats per minute. Telemetry demonstrates atrial fibrillation with a heart rate ranging from 100-130 beats per minute. LABORATORY DATA: Initial troponin undetectable. TSH 2.010. Sodium 139, potassium 4.2, chloride 101, CO2 23, BUN is 25, creatinine is 1.32 with a baseline creatinine of 1.01. Random glucose 215. White blood cell count 6.95, hemoglobin 13.0, platelet count is 231. INR is 1.8 on admission. Urinalysis pending. Chest x-ray demonstrates interstitial edema. Resting 2D transthoracic echo: Pending. PHYSICAL EXAMINATION: VITAL SIGNS: Temperature is 37.2 degrees centigrade, pulse is 130 beats per minute and irregular, respiratory rate is 16 breaths per minute, blood pressure is 139/78, pulse oximetry is 93% on room air. GENERAL: Chronically ill, in no acute distress. HEENT: Mucous membranes are moist. No scleral icterus. Conjunctivae pink. NECK: Supple without JVD or HJR. No carotid bruit. HEART: Irregular and tachycardic with a normal S1, S2. There is no murmur, rub, or gallop appreciated. LUNGS: Demonstrate clear breath sounds without rales, rhonchi, or wheeze. ABDOMEN: Demonstrates soft without rebound or guarding. Normal bowel sounds. EXTREMITIES: Warm and dry. Trace pedal edema. NEUROLOGIC EXAMINATION: Demonstrates no focal deficit. FINAL IMPRESSION: 1. This is a 77-year-old male admitted with paroxysmal atrial fibrillation with rapid ventricular response. The patient previously maintained in sinus rhythm with amiodarone, discontinued in June due respiratory complaints. Pulmonary function testing reportedly unremarkable. Currently, atrial fibrillation with rapid ventricular response and symptomatic with minimal exertion. 2. Mitral valve prolapse with mild mitral regurgitation per most recent echocardiogram in 02/2017. 3. Elevated pulmonary pressures per echocardiography. 4. Subtherapeutic INR since 10/06/2017. 5. Hypertension. 6. Dyslipidemia. 7. Diabetes type 2. PLAN/RECOMMENDATIONS: Recommend titrating metoprolol to 25 mg every 8 hours. The patient will receive 25 mg x1 now. We will utilize intermittent p.r.n. IV Lopressor as needed. Intravenous heparin will be initiated given subtherapeutic INRs for more than 1 month. Other cardiovascular medications will be continued as previously ordered. Repeat resting 2D transthoracic echo pending at this time. Further recommendations pending clinical response to medication changes as well as results of testing. Thank you for allowing me to participate in the care of your patient.
[2017-11-18 15:29] VITALS: PULSE 112; O2SAT 96
[2017-11-18] MEDS: HEPARIN 25,000 UNIT/500ML D5W 500 ML IV SCH ×3 (15:41→23:09)
[2017-11-18 16:00] VITALS: O2SAT 93
[2017-11-18] MEDS ORDERED: WARFARIN SOD 3 MG TAB PO SCH (16:00)
[2017-11-18] MEDS: METOPROLOL TARTRATE 1 MG/ML VIAL IV PRN ×2 (16:22→23:21)
[2017-11-18] MEDS ORDERED: FUROSEMIDE INJ 20 MG in SYRINGE 0 ML IV ONE ×2 (16:45→19:00)
--- NOTE | 2017-11-18 17:15 | ECHOCARDIOGRAM REPORT ---
*NOTICE TO RECEIVING [employer] This information is strictly Confidential and protected under [place] law. [place] law prohibits you from making any further disclosure of this information unless further disclosure is expressly permitted by the written consent of the person to whom it pertains or is authorized by law. A general authorization for the release of medical or other information is not sufficient for this purpose. Hospital accepts no responsibility if the information is made available to any other person, INCLUDING THE PATIENT. Interpretation Summary * Name: BELINDA HERNANDEZ Study Date: 11/18/2017 12:59 PM BP: 90/72 mmHg * Patient Location: .2E\S\E204\S\1 HR: 119 * : 1940 (M/d/yyyy) Gender: Male Height: 64 in * Age: 77 yrs Ethnicity: CA Weight: 176 lb * Ordering Physician: Diana Sawyer * Referring Physician: Self, Referred * Performed By: Nica Johns RDCS * * Reason For Study: A-Fib * BSA: 1.9 m2 * The study was technically adequate. * Compared to prior study, changes are noted. * -- Conclusions -- * The rhythm is atrial fibrillation. * Ejection Fraction = 55-60%. * The left atrium is moderately dilated. * There is borderline prolapse of the anterior mitral valve leaflet. * There is moderate to severe mitral regurgitation. * There is mild tricuspid regurgitation. * The estimated systolic pulmonary arterial pressure is 50 mmHg. * Dilated inferior vena cava with reduced collapsability with sniff indicates an elevated right atrial pressure of 15 mmHg Procedure Details * A complete two-dimensional transthoracic echocardiogram was performed (2D, M-mode, Doppler and color flow Doppler). Left Ventricle * The rhythm is atrial fibrillation. * The left ventricle is normal in size. * There is no thrombus. * There is normal left ventricular wall thickness. * Ejection Fraction = 55-60%. * Left ventricular systolic function is normal. * No regional wall motion abnormalities noted. Right Ventricle * The right ventricle is normal size. * The right ventricular systolic function is normal as assessed by tricuspid annular plane systolic excursion (TAPSE) (normal >1.5 cm). Atria * The left atrium is moderately dilated. * The right atrium is mildly dilated. * There is no evidence of atrial septal defect, but resolution does not allow assessment for a patent foramen ovale. Mitral Valve * The mitral valve is normal. * There is mild mitral annular calcification. * There is borderline prolapse of the anterior mitral valve leaflet. * There is no mitral valve stenosis. * There is moderate to severe mitral regurgitation. Tricuspid Valve * The tricuspid valve is normal. * There is no tricuspid stenosis. * There is mild tricuspid regurgitation. * The estimated systolic pulmonary arterial pressure is 50 mmHg. Aortic Valve * The aortic valve is trileaflet. * Aortic stenosis is absent. * There is no significant aortic regurgitation. Pulmonic Valve * The pulmonary valve is not well seen, but the Doppler examination is normal without significant regurgitation or stenosis. Great Vessels * The aortic root is normal size. Pericardium/Pleural * There is no pericardial effusion. Great Vessels * Dilated inferior vena cava with reduced collapsability with sniff indicates an elevated right atrial pressure of 15 mmHg Left Ventricular Diastolic Function * Diastolic dysfunction suggested by left atrial enlargement. MMode 2D Measurements and Calculations IVSd 0.83 cm LVIDd 4.1 cm LVIDs 2.9 cm LVPWd 0.88 cm IVS/LVPW 0.94 FS 27.9 % EDV(Teich) 72.9 ml ESV(Teich) 33.1 ml EF(Teich) 54.5 % EDV(cubed) 67.4 ml ESV(cubed) 25.3 ml EF(cubed) 62.5 % LV mass(C)d 105.3 grams LV mass(C)dI 56.8 grams/m\S\2 SV(Teich) 39.8 ml SI(Teich) 21.5 ml/m\S\2 SV(cubed) 42.1 ml SI(cubed) 22.7 ml/m\S\2 Ao root diam 3.0 cm Ao root area 6.9 cm\S\2 ACS 1.7 cm LA dimension 4.6 cm asc Aorta Diam 1.8 cm LA/Ao 1.6 LVOT diam 2.0 cm LVOT area 3.0 cm\S\2 LVAd ap4 25.7 cm\S\2 LVLd ap4 6.8 cm EDV(MOD-sp4) 77.6 ml EDV(sp4-el) 81.8 ml LVAs ap4 15.4 cm\S\2 LVLs ap4 6.0 cm ESV(MOD-sp4) 33.7 ml ESV(sp4-el) 33.6 ml EF(MOD-sp4) 56.6 % EF(sp4-el) 58.9 % LVAd ap2 25.3 cm\S\2 LVLd ap2 6.5 cm EDV(MOD-sp2) 79.5 ml EDV(sp2-el) 83.5 ml LVAs ap2 15.8 cm\S\2 LVLs ap2 5.5 cm ESV(MOD-sp2) 37.2 ml ESV(sp2-el) 38.9 ml EF(MOD-sp2) 53.2 % EF(sp2-el) 53.4 % LVLd %diff -4.84 % EDV(MOD-bp) 80.2 ml LVLs %diff -9.25 % ESV(MOD-bp) 36.4 ml EF(MOD-bp) 54.6 % SV(MOD-sp4) 43.9 ml SI(MOD-sp4) 23.7 ml/m\S\2 SV(MOD-sp2) 42.3 ml SI(MOD-sp2) 22.8 ml/m\S\2 SV(MOD-bp) 43.8 ml SI(MOD-bp) 23.6 ml/m\S\2 SV(sp4-el) 48.2 ml SI(sp4-el) 26.0 ml/m\S\2 SV(sp2-el) 44.6 ml SI(sp2-el) 24.1 ml/m\S\2 Doppler Measurements and Calculations MV E max hetal 162.4 cm/sec MV dec time 0.19 sec Ao V2 max 117.6 cm/sec Ao max PG 5.5 mmHg Ao max PG (full) 2.6 mmHg FRANCISCA(V,A) 2.2 cm\S\2 FRANCISCA(V,D) 2.2 cm\S\2 LV V1 max PG 2.9 mmHg LV V1 max 85.2 cm/sec MR max hetal 419.3 cm/sec MR max PG 70.3 mmHg MR mean hetal 339.3 cm/sec MR mean PG 49.6 mmHg MR VTI 99.2 cm PA V2 max 82.8 cm/sec PA max PG 2.7 mmHg PA acc slope 682.8 cm/sec\S\2 PA acc time 0.08 sec PI end-d hetal 236.2 cm/sec TR max hetal 263.3 cm/sec PA pr(Accel) 42.6 mmHg
[2017-11-18] MEDS ORDERED: OPTIRAY 320 IV PRN (18:15)
--- NOTE | 2017-11-18 18:19 | DIAGNOSTIC IMAGING REPORT ---
(CHEST FOR PE) ANGIO WITH CT DOSE: 470.26 mGy.cm HISTORY: Chest pain dyspnea. Hypoxia. TECHNIQUE: Multiaxial CT images of the chest were performed following the intravenous administration of contrast to evaluate the pulmonary arteries. Maximal intensity projection images were also obtained. A dose lowering technique was utilized adhering to the principles of ALARA. COMPARISON STUDY: None. FINDINGS: The thoracic aorta is unremarkable. Mild left ischemic change is present. Mild cardiomegaly. Small hiatal hernia. Small bilateral pleural effusions. Bibasilar atelectatic IMPRESSION: No evidence for pulmonary embolus. Small bilateral pleural effusions. Bibasilar atelectasis. Prominent pulmonary vasculature. The above report was generated using voice recognition software. It may contain grammatical, syntax or spelling errors. Electronically signed by: Christopher Pimentel M.D. 11/18/2017 6:18 PM Dictated Date/Time: 11/18/2017 6:12 PM
[2017-11-18] MEDS ORDERED: REPA2TAB12 PO (19:14)
[2017-11-18] MEDS ORDERED: DICL1GEL12 TOP (19:14)
[2017-11-18] MEDS ORDERED: METO25TA56 PO (19:14)
[2017-11-18] MEDS ORDERED: SITA100T3 PO (19:14)
[2017-11-18 19:38] VITALS: BP 119/87; PULSE 119; TEMP 37; O2SAT 92
[2017-11-18] MEDS: ROSUVASTATIN CALCIUM 20 MG TAB PO SCH (20:19)
[2017-11-18] MEDS: MONTELUKAST SOD 5 MG CHEWABLE TAB PO SCH (20:22)
[2017-11-18] MEDS: INSULIN GLARGINE SOLOSTAR 100 UNITS/ML 3 ML PEN SC SCH (20:45)
[2017-11-18] MEDS ORDERED: METOPROLOL TARTRATE 25 MG TAB PO SCH (21:00)
[2017-11-18 21:47] LABS: PTT PATIENT 74.1 SECONDS (21.0-31.0)
[2017-11-19] VITALS (17 sets, daily range): BP systolic 92–125; BP diastolic 53–91; PULSE 66–140; TEMP 36.4–36.7; O2SAT 90–98
[2017-11-19 04:10] LABS: HEMATOCRIT 36.6 % (42-52); HEMOGLOBIN 12.1 g/dL (14.0-18.0); MEAN CELL VOLUME 98.1 fL (80-100); MEAN CORPUSCULAR HEMOGLOBIN 32.4 pg (25-34); MEAN CORPUSCULAR HGB CONC 33.1 g/dl (32-36); MEAN PLATELET VOLUME 10.8 fL (7.4-10.4); PLATELET COUNT 213 K/uL (130-400); RED CELL DISTRIBUTION WIDTH CV 13.1 % (11.5-14.5); WHITE BLOOD COUNT 7.91 K/uL (4.8-10.8)
[2017-11-19 04:27] LABS: CALCIUM 8.9 mg/dl (8.5-10.1); CREATININE 1.29 mg/dl (0.60-1.40); POTASSIUM 3.8 mmol/L (3.5-5.1)
[2017-11-19 04:33] LABS: INR 1.7 (0.9-1.1)
[2017-11-19 04:37] LABS: PTT PATIENT 54.3 SECONDS (21.0-31.0)
[2017-11-19] MEDS: METOPROLOL TARTRATE 1 MG/ML VIAL IV PRN (06:27)
[2017-11-19 07:17] LABS: HEMOGLOBIN A1C 7.2 % (4.5-5.6)
[2017-11-19] MEDS: ASPIRIN 81 MG ECTAB PO SCH (08:29)
[2017-11-19] MEDS: GABAPENTIN 300 MG CAP PO SCH ×3 (08:29→20:54)
[2017-11-19] MEDS: LISINOPRIL 40 MG TAB PO SCH (08:30)
[2017-11-19] MEDS: FUROSEMIDE INJ 40 MG in SYRINGE 0 ML IV SCH (08:30)
[2017-11-19] MEDS: INSULIN ASPART 100 UNITS/ML 3 ML PEN SC SCH ×4 (08:35→21:00)
[2017-11-19] MEDS: INSULIN GLARGINE SOLOSTAR 100 UNITS/ML 3 ML PEN SC SCH ×2 (08:36→21:00)
--- NOTE | 2017-11-19 09:04 | Progress Note ---
Internal Med Progress Note Date of Service: Nov 19, 2017. Provider Documentation: SUBJECTIVE: Seen and examined at bedside Reports shortness of breath Denies chest pain, palpitations, dizziness, abdominal pain, cough No other complaints OBJECTIVE: Vital Signs-as noted below Physical Exam: General Appearance:Moderately built and nourished, mild respiratory distress Head: normocephalic, Atraumatic Eyes: normal inspection, EOMI, PERRL Neck: supple, Trachea midline Respiratory/Chest: Normal breath sounds, scattered wheezes Cardiovascular: Irregularly Irregular, No murmur Abdomen/GI:Soft, Non tender, Bowel sounds present Extremities/Musculoskelatal:normal inspection, Trace b/l LE edema Neurologic/Psych:AAOX3, grossly no focal neurological deficits Skin: normal color, warm Lab data as noted below. ASSESSMENT & PLAN: Atrial Fibrillation RVR: TSH: normal CXR:The heart is mildly enlarged. There is elevation of the interstitium with septal edema Monitor electrolytes Continue metoprolol for rate control IV Lopressor PRN Continue Coumadin, IV heparin Monitor INR: 1.7 today Appreciate Cardiology Input Cardiac enzymes X 3: Negative ECHO as below Acute respiratory failure with Hypoxia CTA:No PE. Small b/l pleural effusions. Bibasilar atelectasis. Prominent pulmonary vasculature. Likely secondary to afib RVR Pulm HTN could be contributing Oxygen support Pulmonology consulted Diuresis with IV Lasix HTN continue lisinopril, metoprolol monitor HLD Continue Crestor DM II A1C: 7.2 Hold home oral agents Continue SSI, Lantus Monitor BGs H/O Prostate Cancer S/P Radiation Continue Hytrin Allergic Rhinitis: Continue Singulair DVT Px On Heparin and Coumadin Disposition: Monitor in Telemetry PROCEDURES: ECHO: The rhythm is atrial fibrillation. * Ejection Fraction = 55-60%. * The left atrium is moderately dilated. * There is borderline prolapse of the anterior mitral valve leaflet. * There is moderate to severe mitral regurgitation. * There is mild tricuspid regurgitation. * The estimated systolic pulmonary arterial pressure is 50 mmHg. * Dilated inferior vena cava with reduced collapsability with sniff indicates an elevated right atrial pressure of 15 mmHg Vital Signs: Date Time Temp Pulse Resp B/P (MAP) Pulse Ox O2 Delivery O2 Flow Rate FiO2 11/19/17 08:00 Room Air 11/19/17 07:25 36.6 140 125/91 (102) 96 Nasal Cannula 2.0 11/19/17 06:27 130 122/85 11/19/17 04:26 36.4 127 20 120/88 (99) 94 Nasal Cannula 2.0 11/19/17 04:00 Room Air 11/19/17 00:00 36.5 130 20 115/78 (90) 90 Room Air 11/19/17 00:00 90 Room Air 11/18/17 23:21 130 115/78 11/18/17 20:00 Room Air 11/18/17 19:38 37.0 119 20 119/87 (98) 92 Room Air 11/18/17 16:22 125 112/83 11/18/17 16:00 93 Room Air 11/18/17 15:29 112 16 96 Room Air 11/18/17 15:20 36.6 84 22 124/82 (96) 93 Room Air 11/18/17 12:26 37.2 132 16 139/78 Room Air 11/18/17 11:10 108 31 11/18/17 11:01 128/70 11/18/17 10:40 96 33 Lab Results: Results Past 24 Hours Test 11/18/17 12:34 11/18/17 13:05 11/18/17 16:07 11/18/17 16:59 Range/Units Bedside Glucose 172 168 70-99 mg/dl Troponin I < 0.015 0-0.045 ng/ml D-Dimer 540 0-500 ug/L FEU Test 11/18/17 18:25 11/18/17 19:15 11/18/17 19:59 11/18/17 21:13 Range/Units Arterial Blood pH 7.37 7.44 7.35-7.45 Arterial Blood Partial Pressure CO2 32 31 35-46 mmHg Arterial Blood Partial Pressure O2 64 64 80-95 mm/Hg Arterial Blood HCO3 18 20 19-24 mmol/L Arterial Blood Oxygen Saturation 90.4 91.0 90-95 % Arterial Blood Base Excess -6.1 -3.0 -9-1.8 mEq/L Arterial Blood Gas Delivery ROOM AIR ROOM AIR [place] Test POS POS POS Troponin I < 0.015 0-0.045 ng/ml Urine Color YELLOW Urine Appearance CLEAR CLEAR Urine pH 5.0 4.5-7.5 Urine Specific [place] 1.028 1.000-1.030 Urine Protein NEG NEG Urine Glucose (UA) NEG NEG Urine Ketones NEG NEG Urine Occult Blood NEG NEG Urine Nitrite NEG NEG Urine Bilirubin NEG NEG Urine Urobilinogen NEG NEG Urine Leukocyte Esterase NEG NEG Bedside Glucose 185 70-99 mg/dl Activated Partial Thromboplast Time 74.1 21.0-31.0 SECONDS Partial Thromboplastin Ratio 2.8 Test 11/19/17 04:02 11/19/17 06:31 Range/Units White Blood Count 7.91 4.8-10.8 K/uL Red Blood Count 3.73 4.7-6.1 M/uL Hemoglobin 12.1 14.0-18.0 g/dL Hematocrit 36.6 42-52 % Mean Corpuscular Volume 98.1 80-100 fL Mean Corpuscular Hemoglobin 32.4 25-34 pg Mean Corpuscular Hemoglobin Concent 33.1 32-36 g/dl RDW Standard Deviation 47.0 36.4-46.3 fL RDW Coefficient of Variation 13.1 11.5-14.5 % Platelet Count 213 130-400 K/uL Mean Platelet Volume 10.8 7.4-10.4 fL Prothrombin Time 17.9 9.0-12.0 SECONDS Prothromb Time International Ratio 1.7 0.9-1.1 Activated Partial Thromboplast Time 54.3 21.0-31.0 SECONDS Partial Thromboplastin Ratio 2.1 Venous Blood pH 7.43 7.36-7.41 Venous Blood Partial Pressure CO2 34 38.0-50.0 mmHg Venous Blood Partial Pressure O2 42 mmHg Venous Blood HCO3 22 mmol/L Venous Blood Oxygen Saturation 75.3 % Venous Blood Base Excess -1.6 mEq/L Sodium Level 139 136-145 mmol/L Potassium Level 3.8 3.5-5.1 mmol/L Chloride Level 109 98-107 mmol/L Carbon Dioxide Level 23 21-32 mmol/L Anion Gap 7.0 3-11 mmol/L Blood Urea Nitrogen 27 7-18 mg/dl Creatinine 1.29 0.60-1.40 mg/dl Est Creatinine Clear Calc Drug Dose 44.4 ml/min Estimated GFR () 60.7 Estimated GFR (Non- 52.4 BUN/Creatinine Ratio 21.1 10-20 Random Glucose 164 70-99 mg/dl Estimated Average Glucose 160 mg/dl Hemoglobin A1c 7.2 4.5-5.6 % Calcium Level 8.9 8.5-10.1 mg/dl Bedside Glucose 167 70-99 mg/dl
--- NOTE | 2017-11-19 09:33 | PULMONARY CONSULTATION ---
DATE OF CONSULTATION: 11/19/2017 TIME: 8:40 a.m. REPORT OF CONSULTATION: The patient was seen in room 204. He is a 77-year-old male with a history of atrial fibrillation for many years. He has undergone cardioversion 4 times in the past. The most recent episode was about 4 years ago. He apparently had been in sinus rhythm. In the fall of 2016, he began to notice some increasing shortness of breath. He had much more shortness of breath than normal when he was hunting. He had pulmonary function testing done as an outpatient in March and again in June. The pulmonary functions in March were effectively normal. His diffusion was low normal at 71%. In June, the vital capacity and FEV1 remained normal. The diffusion decreased, down to 60%. Apparently, a decision was made at that time to stop the amiodarone and see if his breathing improves. Overall, there had not been any substantial change in his breathing. The patient has had increasing shortness of breath for the past several days. He did take his pulse and he noticed it was irregular and fast. This prompted coming to the Emergency Room. He was found to have rapid atrial fibrillation. He was brought in by EMS and was given some Cardizem on the way. The patient was feeling somewhat better. He thinks getting oxygen helped his breathing. He was admitted during the day yesterday. He has remained somewhat short of breath. He has noticed some wheezing for a few days. He has been feeling more tired and weak than normal. He was told about some pulmonary hypertension. The patient has not had any significant pulmonary problems in the past. He denies asthma, emphysema, tuberculosis, pneumonia or pleurisy. He apparently was given an inhaler to try at home. I am not sure if he used it at all. Recently, he has even had shortness of breath while eating. Last evening, he was found to have some low oxygen levels and an arterial blood gas was done. At 6:25 p.m., the blood gas showed a pH of 7.37 with a pCO2 of 32 and a pO2 of 64 on room air. This would suggest a metabolic acidosis with some compensation. Moderate hypoxemia was present. Blood gas was repeated at 9:13 p.m. last evening and the pH was up to 7.44 with a pCO2 of 31 and a pO2 of 64, still on room air. Apparently, they ordered CPAP or BiPAP for the patient, but he refused. He still feels somewhat winded this morning. He does state that the oxygen has made him feel better. He was given some Lasix, but did not diurese dramatically. It appears that he passed 900 mL of urine yesterday, but with an intake of 1344. The patient had a chest x-ray done that suggested interstitial edema. He then had a CT angio of the chest done. This showed no evidence of pulmonary embolic disease. Bilateral effusions were seen which were small. On the left side, there was fluid in the fissure as well. Areas of atelectasis were seen just above the effusions which would be expected. Pulmonary vasculature was prominent. The patient had only smoked for a total of 10 pack years. He had not smoked since 1971. He had no significant occupational history that would risk him for underlying lung disease. Specifically, no dust, fumes or chemical exposures of significance. He did work at [employer] for 22 years with no significant exposure. He also worked in [employer] for about 16 years and he still worked until earlier this year. PAST SURGICAL HISTORY: 1. Prostate biopsy. 2. T and A. 3. Cataract surgeries. 4. Removal of numerous skin cancers including one which was melanoma. PAST MEDICAL HISTORY: 1. Atrial fib. 2. Hyperlipidemia. 3. Hypertension. 4. Diabetes type 2. 5. Prostate CA, treated with radiation. 6. Allergic rhinitis. 7. Chronic low back pain. SOCIAL HISTORY: Tobacco 10 pack years as noted. ETOH - 1-2 alcoholic beverages per day. ALLERGIES: CODEINE, POLLEN, AND DUST MITES. FAMILY HISTORY: Mother , age 93, heart disease, diabetes, CA of the intestines. Father , age 87, hypertension and had skin cancer. REVIEW OF SYSTEMS: The patient denies headache or dizziness. He has some degree of nasal symptoms and postnasal drip at certain times of the year. Denies heartburn. He has been noticing shortness of breath while eating. He has some loose bowels that he attributes to one of his medicines. He has some leaking of urine. He has chronic low back pain. Review of systems is otherwise negative. Ten systems reviewed. PHYSICAL EXAMINATION: GENERAL: The patient is a 77-year-old male, who was cooperative, alert and oriented. He worked breathless at rest. VITAL SIGNS: Temperature was 36.4. HEENT: Pupils were reactive. Implants were noted. Nasal cannula oxygen was in place. Mouth exam was unremarkable. There was no erythema or exudate. NECK: Palpation of the neck reveals no lymph nodes. The neck veins were not overtly distended. HEART: Cardiac rate was 140 per minute. The rhythm was irregular. Blood pressure was 120/89. PULMONARY: The breath sounds were slightly diminished. The patient feels that it is hard to take a deep breath. Faint wheezing was heard. Some rales were heard on the left. Respiratory rate was 30 breaths per minute at the time of my exam. Saturation was 94% on 2 liters. ABDOMEN: Soft. Bowel sounds were normal. There was no tenderness to palpation, masses, or organomegaly. EXTREMITIES: Showed no cyanosis, clubbing or edema. LABORATORY DATA: White count of 7.91. Hemoglobin 12.1. Platelets 213,000. PTT this morning was 54.3. D-dimer was mildly elevated at 540. Urinalysis was unremarkable. Blood gases were as noted above. Electrolytes show sodium 139, potassium 3.8, chloride 109, bicarbonate 23. BUN is 27 with a creatinine of 1.29. Hemoglobin A1c was 7.2. Troponin was negative x2. Echocardiogram reports an ejection fraction of 55-60%. The left atrium was moderately dilated. There was borderline prolapse of the anterior mitral valve leaflet. [id number] mitral regurg was noted. Systolic pulmonary artery pressure was 50. There was dilated inferior vena cava, it would reduce collapsibility, was sniff indicating an elevated right atrial pressure of 15. Right ventricular size was normal and right ventricular systolic function was normal. IMPRESSION: 1. Rapid atrial fibrillation. 2. Small bilateral pleural effusions. 3. [id number] mitral regurgitation. 4. Pulmonary hypertension. COMMENTS AND RECOMMENDATIONS: The problem at present seems to be that his heart rate is not controlled. I suspect his dyspnea will improve once his rate is better controlled. This is deferred to cardiology. It is difficult to determine if the amiodarone had caused any lung issues. He certainly has not improved since he is off amiodarone. There were no x-ray findings to suggest amiodarone toxicity. There had been a slight decrease in diffusion. I think it is unclear if he was having amiodarone toxicity or not. For right now, I think the biggest issue was his cardiac problems. Case was discussed at length with Dr. Lizama. I do not believe the patient requires CPAP or BiPAP, which he had refused last night. I believe rate control and oxygen supplementation will be the most benefit to him. Thank you very much for asking me to assist in his care.
[2017-11-19] MEDS: METOPROLOL TARTRATE 25 MG TAB PO SCH ×3 (09:35→16:51)
[2017-11-19] MEDS ORDERED: DILTIAZEM BOLUS / DRIP IV STA (14:49)
[2017-11-19] MEDS ORDERED: DILTIAZEM HCL 5 MG/ML 5 ML VIAL BOLUS/OMNI IV SCH (15:00)
[2017-11-19] MEDS ORDERED: DILTIAZEM HCL INJ 125 MG in DEXTROSE 5% 100ML IV PRN (15:00)
--- NOTE | 2017-11-19 15:30 | Cardiology Follow-Up ---
Subjective General Date of Service: Nov 19, 2017. Pt evaluation today including: conversation w/ patient, physical exam, chart review, lab review, review of studies, review of inpatient medication list History of Present Illness The patient is a 77 year old male seen in follow-up. Heart rate remains elevated on telemetry. Dyspnea improved with IV Lasix. Patient denies chest pain or palpitations. Allergies Coded Allergies: Codeine (Verified Allergy, Mild, RASH, 07/19/16) CAUSES NAUSEA Dust Mite Extract (Verified Allergy, Mild, , 07/19/16) POLLEN (Verified Allergy, Mild, , 07/19/16) Social History Smoking Status: Former Smoker Hx Tobacco Use In Past Year?: No Hx Alcohol Use - Type And Amou: Yes (2 drinks a night) Hx Substance Use - Type And Am: No Problem List Medical Problems: (1) Atrial fibrillation with rapid ventricular response Status: Acute (2) Contusion of left knee Status: Acute (3) Dental caries Status: Acute (4) Hematoma of left lower extremity Status: Acute (5) Tooth ache Status: Acute Review of Systems Respiratory: No cough, No wheezing, No shortness of breath, No dyspnea at rest , No hemoptysis Cardiac: No chest pain, No orthopnea, No PND, No edema, No claudication, No palpitations Physical Exam Vital Signs Last Vital Signs Documentation Date Time Temp Pulse Resp B/P (MAP) Pulse Ox O2 Delivery O2 Flow Rate FiO2 11/19/17 12:00 Room Air 11/19/17 10:58 36.6 125 20 93/64 (74) 97 2.0 Physical Exam Constitutional: Level of Distress: chronically ill Ambulation: ambulating normally ENMT: normal ENT inspection Neck: supple, trachea midline Lungs: Auscultation: no wheezing, no rales/crackles, no rhonchi Cardiovascular: Heart Auscultation: normal S1, normal S2, tachycardia, I/ WSM, irregular rate rhythm Peripheral Pulses: Radial Pulse: normal on the right Abdomen: Bowel Sounds: normal Inspection & Palpation: soft, non-distended, no tenderness, guarding & rebound Extremities: no cyanosis, no edema, no clubbing, no ulcers Neurologic: Gait & Station: pertinent finding (No focal motor deficit.) Cranial Nerves: grossly intact Assessment and Plan Assessment and Plan FINAL IMPRESSION: 1. Paroxysmal atrial fibrillation with rapid ventricular response. Amiodarone recently discontinued June 2017. Previously failed rhythm control with sotalol. Heart rates remain elevated despite titration of metoprolol. INR is subtherapeutic. 2. Acute decompensated heart failure secondary to valvular heart disease and rapid atrial fibrillation. 3. Mitral valve prolapse with moderate to severe mitral regurgitation 4. Subtherapeutic INR since 10/06/2017. 5. Hypertension. PLAN/RECOMMENDATIONS: Add IV diltiazem 10 mg 1 now. IV diltiazem infusion will be continued at 5 mg/ h to improve heart rate control. Metoprolol 25 mg every 6 hours will be continued at this time. Continue IV heparin until INR is greater than 2.0. Consideration for cardiac catheterization (right and left) for further evaluation of exertional complaints in the near future pending clinical course. Laboratory Results Last 24 Hours Test 11/18/17 16:07 11/18/17 16:59 11/18/17 18:25 11/18/17 19:15 Bedside Glucose 168 mg/dl D-Dimer 540 ug/L FEU Arterial Blood pH 7.37 Arterial Blood Partial Pressure CO2 32 mmHg Arterial Blood Partial Pressure O2 64 mm/Hg Arterial Blood HCO3 18 mmol/L Arterial Blood Oxygen Saturation 90.4 % Arterial Blood Base Excess -6.1 mEq/L Arterial Blood Gas Delivery ROOM AIR [place] Test POS Troponin I < 0.015 ng/ml Urine Color YELLOW Urine Appearance CLEAR Urine pH 5.0 Urine Specific [place] 1.028 Urine Protein NEG Urine Glucose (UA) NEG Urine Ketones NEG Urine Occult Blood NEG Urine Nitrite NEG Urine Bilirubin NEG Urine Urobilinogen NEG Urine Leukocyte Esterase NEG Test 11/18/17 19:59 11/18/17 21:13 11/19/17 04:02 11/19/17 06:31 Bedside Glucose 185 mg/dl 167 mg/dl Activated Partial Thromboplast Time 74.1 SECONDS 54.3 SECONDS Partial Thromboplastin Ratio 2.8 2.1 Arterial Blood pH 7.44 Arterial Blood Partial Pressure CO2 31 mmHg Arterial Blood Partial Pressure O2 64 mm/Hg Arterial Blood HCO3 20 mmol/L Arterial Blood Oxygen Saturation 91.0 % Arterial Blood Base Excess -3.0 mEq/L Arterial Blood Gas Delivery ROOM AIR [place] Test POS White Blood Count 7.91 K/uL Red Blood Count 3.73 M/uL Hemoglobin 12.1 g/dL Hematocrit 36.6 % Mean Corpuscular Volume 98.1 fL Mean Corpuscular Hemoglobin 32.4 pg Mean Corpuscular Hemoglobin Concent 33.1 g/dl RDW Standard Deviation 47.0 fL RDW Coefficient of Variation 13.1 % Platelet Count 213 K/uL Mean Platelet Volume 10.8 fL Prothrombin Time 17.9 SECONDS Prothromb Time International Ratio 1.7 Venous Blood pH 7.43 Venous Blood Partial Pressure CO2 34 mmHg Venous Blood Partial Pressure O2 42 mmHg Venous Blood HCO3 22 mmol/L Venous Blood Oxygen Saturation 75.3 % Venous Blood Base Excess -1.6 mEq/L Sodium Level 139 mmol/L Potassium Level 3.8 mmol/L Chloride Level 109 mmol/L Carbon Dioxide Level 23 mmol/L Anion Gap 7.0 mmol/L Blood Urea Nitrogen 27 mg/dl Creatinine 1.29 mg/dl Est Creatinine Clear Calc Drug Dose 44.4 ml/min Estimated GFR () 60.7 Estimated GFR (Non- 52.4 BUN/Creatinine Ratio 21.1 Random Glucose 164 mg/dl Estimated Average Glucose 160 mg/dl Hemoglobin A1c 7.2 % Calcium Level 8.9 mg/dl Test 11/19/17 11:23 Bedside Glucose 204 mg/dl
[2017-11-19] MEDS ORDERED: WARFARIN SOD 5 MG TAB PO SCH (16:00)
[2017-11-19] MEDS: ROSUVASTATIN CALCIUM 20 MG TAB PO SCH (20:54)
[2017-11-19] MEDS: MONTELUKAST SOD 5 MG CHEWABLE TAB PO SCH (20:54)
[2017-11-20] VITALS (11 sets, daily range): BP systolic 96–123; BP diastolic 67–94; PULSE 35–119; TEMP 36.4–36.7; O2SAT 95–98
[2017-11-20] MEDS: METOPROLOL TARTRATE 25 MG TAB PO SCH ×4 (00:04→18:07)
[2017-11-20 05:42] LABS: HEMATOCRIT 36.2 % (42-52); HEMOGLOBIN 12.3 g/dL (14.0-18.0); MEAN CELL VOLUME 97.6 fL (80-100); MEAN CORPUSCULAR HEMOGLOBIN 33.2 pg (25-34); MEAN PLATELET VOLUME 11.1 fL (7.4-10.4); PLATELET COUNT 216 K/uL (130-400); RED CELL DISTRIBUTION WIDTH SD 46.5 fL (36.4-46.3); WHITE BLOOD COUNT 7.38 K/uL (4.8-10.8)
[2017-11-20 06:20] LABS: INR 2.2 (0.9-1.1)
[2017-11-20 06:25] LABS: CREATININE 1.31 mg/dl (0.60-1.40); POTASSIUM 3.6 mmol/L (3.5-5.1); PTT PATIENT 53.2 SECONDS (21.0-31.0)
[2017-11-20] MEDS: FUROSEMIDE INJ 40 MG in SYRINGE 0 ML IV SCH (08:18)
[2017-11-20] MEDS: ASPIRIN 81 MG ECTAB PO SCH (08:20)
[2017-11-20] MEDS: GABAPENTIN 300 MG CAP PO SCH ×3 (08:20→20:33)
[2017-11-20] MEDS: LISINOPRIL 40 MG TAB PO SCH (08:20)
[2017-11-20] MEDS: INSULIN ASPART 100 UNITS/ML 3 ML PEN SC SCH ×4 (08:24→20:39)
[2017-11-20] MEDS: INSULIN GLARGINE SOLOSTAR 100 UNITS/ML 3 ML PEN SC SCH ×2 (08:25→20:36)
--- NOTE | 2017-11-20 09:00 | Cardiology Follow-Up ---
Subjective Subjective Date of Service: Nov 20, 2017. Additional Details: This is a 77-year-old male patient admitted with decompensated heart failure due to valvular heart disease and atrial fibrillation. He was started on diltiazem yesterday in addition to metoprolol and last night had a 2 second pause. The diltiazem was discontinued. The patient has a heart rate this morning in the 90s to low 100s. He complains of dyspnea with activities of just walking around his room. He is comfortable while lying flat. Problem List Medical Problems: (1) Atrial fibrillation with rapid ventricular response Status: Acute (2) Contusion of left knee Status: Acute (3) Dental caries Status: Acute (4) Hematoma of left lower extremity Status: Acute (5) Tooth ache Status: Acute Review of Systems Respiratory: No cough, No wheezing, No shortness of breath, No dyspnea at rest , No hemoptysis Cardiac: No chest pain, No orthopnea, No PND, No edema, No claudication, No palpitations Objective Vital Signs Last Vital Signs Documentation Date Time Temp Pulse Resp B/P (MAP) Pulse Ox O2 Delivery O2 Flow Rate FiO2 11/20/17 08:25 86 100/88 (92) 11/20/17 07:15 36.4 20 97 Nasal Cannula 2.0 Physical Exam: General Appearance: no apparent distress ENT: normal ENT inspection Neck: supple, no JVD, no carotid bruits Respiratory/Chest: chest non-tender, lungs clear, normal breath sounds Cardiovascular: + systolic murmur, + irregularly irregular Abdomen: normal bowel sounds, non tender, soft, no organomegaly Extremities: normal range of motion, non-tender, normal inspection, no pedal edema 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 Currently his heart rates are under reasonable control. I would not restart the diltiazem. He may require a right and left heart catheterization in anticipation of possible mitral valve surgery.
--- NOTE | 2017-11-20 09:06 | Progress Note ---
Internal Med Progress Note Date of Service: Nov 20, 2017. Provider Documentation: SUBJECTIVE: Seen and examined at bedside Feels better today Cardizem ggt discontinued overnight Had 2 second pause overnight Has SOB on exertion Denies chest pain, palpitations, sob, dizziness No other complaints OBJECTIVE: Vital Signs-as noted below Physical Exam: General Appearance:Moderately built and nourished, mild respiratory distress Head: normocephalic, Atraumatic Eyes: normal inspection, EOMI, PERRL Neck: supple, Trachea midline Respiratory/Chest: Normal breath sounds, scattered wheezes Cardiovascular: Irregularly Irregular, No murmur Abdomen/GI:Soft, Non tender, Bowel sounds present Extremities/Musculoskelatal:normal inspection, Trace b/l LE edema Neurologic/Psych:AAOX3, grossly no focal neurological deficits Skin: normal color, warm Lab data as noted below. ASSESSMENT & PLAN: Atrial Fibrillation RVR: TSH: normal CXR:The heart is mildly enlarged. There is elevation of the interstitium with septal edema Monitor electrolytes Continue metoprolol for rate control IV Lopressor PRN Continue Coumadin IV heparin discontinued Monitor INR: 2.2 Appreciate Cardiology Input Cardiac enzymes X 3: Negative ECHO as below Acute respiratory failure with Hypoxia CTA:No PE. Small b/l pleural effusions. Bibasilar atelectasis. Prominent pulmonary vasculature. Likely secondary to afib RVR Pulm HTN could be contributing Oxygen support Appreciate Pulmonology Input Diuresis with IV Lasix Needs sleep study as outpatient HTN continue lisinopril, metoprolol monitor HLD Continue Crestor DM II A1C: 7.2 Hold home oral agents Continue SSI, Lantus Monitor BGs H/O Prostate Cancer S/P Radiation Continue Hytrin Allergic Rhinitis: Continue Singulair DVT Px On Coumadin Disposition: Monitor in Telemetry PROCEDURES: ECHO: The rhythm is atrial fibrillation. * Ejection Fraction = 55-60%. * The left atrium is moderately dilated. * There is borderline prolapse of the anterior mitral valve leaflet. * There is moderate to severe mitral regurgitation. * There is mild tricuspid regurgitation. * The estimated systolic pulmonary arterial pressure is 50 mmHg. * Dilated inferior vena cava with reduced collapsability with sniff indicates an elevated right atrial pressure of 15 mmHg Vital Signs: Date Time Temp Pulse Resp B/P (MAP) Pulse Ox O2 Delivery O2 Flow Rate FiO2 11/20/17 08:25 86 100/88 (92) 11/20/17 07:15 36.4 110 20 96/74 (81) 97 Nasal Cannula 2.0 11/20/17 05:33 73 103/71 (82) 11/20/17 04:07 35 11/20/17 04:00 Nasal Cannula 2.0 11/20/17 03:09 36.7 95 24 114/67 (83) 98 Nasal Cannula 4.0 11/19/17 23:59 Nasal Cannula 2.0 11/19/17 23:21 86 33 112/76 (88) 11/19/17 23:15 36.5 96 18 112/76 (88) 96 Nasal Cannula 2.0 11/19/17 23:04 107 19 111/78 (89) 11/19/17 23:02 68 36 111/78 (89) 11/19/17 23:00 97 29 11/19/17 22:45 92 29 11/19/17 22:30 99 24 11/19/17 22:17 75 25 102/75 (84) 11/19/17 21:01 66 27 97/74 (82) 11/19/17 20:36 80 26 94/64 (74) 11/19/17 20:26 92/65 (74) 11/19/17 20:00 Nasal Cannula 2.0 11/19/17 19:01 36.4 66 18 100/53 (69) 94 Nasal Cannula 2.0 11/19/17 16:00 Room Air 11/19/17 15:15 36.7 82 18 97/65 (76) 98 Nasal Cannula 2.0 11/19/17 12:00 Room Air 11/19/17 10:58 36.6 125 20 93/64 (74) 97 Nasal Cannula 2.0 Lab Results: Results Past 24 Hours Test 11/19/17 11:23 11/19/17 16:31 11/19/17 20:23 11/20/17 05:07 Range/Units Bedside Glucose 204 159 250 70-99 mg/dl White Blood Count 7.38 4.8-10.8 K/uL Red Blood Count 3.71 4.7-6.1 M/uL Hemoglobin 12.3 14.0-18.0 g/dL Hematocrit 36.2 42-52 % Mean Corpuscular Volume 97.6 80-100 fL Mean Corpuscular Hemoglobin 33.2 25-34 pg Mean Corpuscular Hemoglobin Concent 34.0 32-36 g/dl RDW Standard Deviation 46.5 36.4-46.3 fL RDW Coefficient of Variation 13.0 11.5-14.5 % Platelet Count 216 130-400 K/uL Mean Platelet Volume 11.1 7.4-10.4 fL Prothrombin Time 22.5 9.0-12.0 SECONDS Prothromb Time International Ratio 2.2 0.9-1.1 Activated Partial Thromboplast Time 53.2 21.0-31.0 SECONDS Partial Thromboplastin Ratio 2.0 Sodium Level 138 136-145 mmol/L Potassium Level 3.6 3.5-5.1 mmol/L Chloride Level 107 98-107 mmol/L Carbon Dioxide Level 23 21-32 mmol/L Anion Gap 8.0 3-11 mmol/L Blood Urea Nitrogen 32 7-18 mg/dl Creatinine 1.31 0.60-1.40 mg/dl Est Creatinine Clear Calc Drug Dose 44.0 ml/min Estimated GFR () 59.6 Estimated GFR (Non- 51.4 BUN/Creatinine Ratio 24.3 10-20 Random Glucose 148 70-99 mg/dl Calcium Level 9.0 8.5-10.1 mg/dl Magnesium Level 2.1 1.8-2.4 mg/dl Test 11/20/17 06:45 Range/Units Bedside Glucose 159 70-99 mg/dl
--- NOTE | 2017-11-20 09:42 | PULMONARY PROGRESS NOTE ---
DATE: 11/20/2017 TIME OF EXAMINATION: 8:40 a.m. SUBJECTIVE: The patient feels about the same. He is still somewhat short of breath with any significant exertion. He noticed being short of breath when eating. He had been put on a Cardizem drip. According to nursing staff, he developed bradycardia during the night time. His heart rates supposedly went down into the 30s. This did not last long. The Cardizem was stopped at that time. It appears that nursing reported this at 4:17 a.m. The possibility does exist that the pauses were occurring at times of REM sleep, and the patient could be having sleep apnea. OBJECTIVE: GENERAL: The patient looks more comfortable than yesterday. I did, however, have him sit up off the side of the bed and just a little exertion made him short of breath. VITAL SIGNS: Temperature is 36.4. Heart rate currently is 110 per minute. The rhythm is atrial fibrillation. Blood pressure this morning 100/88. The patient's oxygen saturation was 97% on 2 L. EARS, NOSE, THROAT: Exam is unremarkable. LUNGS: Auscultation of the lung nicole reveals mild rales posteriorly. ABDOMEN: Soft. Bowel sounds were normal. There was no tenderness to palpation. EXTREMITIES: Showed no cyanosis, clubbing or edema. LABORATORY DATA: White count today is 7.38, hemoglobin 12.3, platelets 216,000. PTT this morning was 53.2. Electrolytes show sodium 138, potassium 3.6, chloride 107, bicarbonate 23. BUN is 32 with a creatinine of 1.31. Blood sugar this morning 159. IMPRESSIONS: 1. Rapid atrial fibrillation. 2. Small bilateral pleural effusions. 3. [id number] mitral regurgitation. 4. Pulmonary hypertension. 5. Dyspnea. COMMENTS AND RECOMMENDATIONS: I have no acute recommendations at present. I think we just need to see how his breathing is after his cardiac rates are controlled. I believe the patient probably should have a sleep study in the sleep lab after he is stabilized and back home. His history of atrial fibrillation and now seeing some bradyarrhythmias at night, but not during the day, could suggest the possibility of some sleep apnea.
[2017-11-20] MEDS ORDERED: WARFARIN SOD 3 MG TAB PO SCH (16:00)
[2017-11-20] MEDS: METOPROLOL TARTRATE 1 MG/ML VIAL IV PRN ×2 (16:14→22:29)
[2017-11-20] MEDS: ROSUVASTATIN CALCIUM 20 MG TAB PO SCH (20:34)
[2017-11-20] MEDS: MONTELUKAST SOD 5 MG CHEWABLE TAB PO SCH (20:34)
[2017-11-21] VITALS (11 sets, daily range): BP systolic 90–121; BP diastolic 63–81; PULSE 94–145; TEMP 36.5–37; O2SAT 94–97
[2017-11-21] MEDS: METOPROLOL TARTRATE 25 MG TAB PO SCH ×4 (05:32→17:50)
[2017-11-21 06:54] LABS: INR 2.6 (0.9-1.1)
[2017-11-21 07:24] LABS: CREATININE 1.1 mg/dl (0.60-1.40)
[2017-11-21 07:25] LABS: CALCIUM 8.9 mg/dl (8.5-10.1); POTASSIUM 3.6 mmol/L (3.5-5.1)
--- NOTE | 2017-11-21 08:41 | Progress Note ---
Internal Med Progress Note Date of Service: Nov 21, 2017. Provider Documentation: SUBJECTIVE: Seen and examined at bedside SOB and weakness better today Heart rate in 110s Denies chest pain, palpitations,dizziness, nausea No other complaints OBJECTIVE: Vital Signs-as noted below Physical Exam: General Appearance:Moderately built and nourished, no apparent distress Head: normocephalic, Atraumatic Eyes: normal inspection, EOMI, PERRL Neck: supple, Trachea midline Respiratory/Chest: Normal breath sounds, CTA Cardiovascular: Irregularly Irregular, No murmur Abdomen/GI:Soft, Non tender, Bowel sounds present Extremities/Musculoskelatal:normal inspection, no edema Neurologic/Psych:AAOX3, grossly no focal neurological deficits Skin: normal color, warm Lab data as noted below. ASSESSMENT & PLAN: Atrial Fibrillation RVR: Severe Mitral Regurgitation TSH: normal CXR:The heart is mildly enlarged. There is elevation of the interstitium with septal edema Monitor electrolytes Continue metoprolol for rate control IV Lopressor PRN Continue Coumadin Monitor INR: 2.6 Appreciate Cardiology Input Cardiac enzymes X 3: Negative ECHO as below May need right and left heart catheterization and possible Mitral valve surgery Acute respiratory failure with Hypoxia CTA:No PE. Small b/l pleural effusions. Bibasilar atelectasis. Prominent pulmonary vasculature. Likely secondary to afib RVR Pulm HTN could be contributing Oxygen support Appreciate Pulmonology Input Diuresis with IV Lasix Needs sleep study as outpatient HTN continue lisinopril, metoprolol monitor HLD Continue Crestor DM II A1C: 7.2 Hold home oral agents Continue SSI, Lantus Monitor BGs H/O Prostate Cancer S/P Radiation Continue Hytrin Allergic Rhinitis: Continue Singulair DVT Px On Coumadin Disposition: Monitor in Telemetry PROCEDURES: ECHO: The rhythm is atrial fibrillation. * Ejection Fraction = 55-60%. * The left atrium is moderately dilated. * There is borderline prolapse of the anterior mitral valve leaflet. * There is moderate to severe mitral regurgitation. * There is mild tricuspid regurgitation. * The estimated systolic pulmonary arterial pressure is 50 mmHg. * Dilated inferior vena cava with reduced collapsability with sniff indicates an elevated right atrial pressure of 15 mmHg Vital Signs: Date Time Temp Pulse Resp B/P (MAP) Pulse Ox O2 Delivery O2 Flow Rate FiO2 11/21/17 07:55 36.5 123 20 110/75 (87) 94 4/29/18 04:34 Nasal Cannula 2.0 11/21/17 02:55 36.6 98 20 115/71 (86) 96 Nasal Cannula 2.0 11/21/17 00:25 98/65 (76) 11/20/17 23:59 Nasal Cannula 2.0 11/20/17 23:00 36.6 119 24 105/80 (88) 95 Nasal Cannula 2.0 11/20/17 22:29 113 123/78 11/20/17 20:00 Nasal Cannula 2.0 11/20/17 19:27 36.6 110 18 107/82 (90) 97 Nasal Cannula 2.0 11/20/17 16:15 Nasal Cannula 2.0 11/20/17 16:14 132 11/20/17 16:05 36.7 94 20 120/75 (90) 98 Nasal Cannula 2.0 11/20/17 12:00 95 Nasal Cannula 2.0 11/20/17 11:28 36.5 94 20 123/94 (104) 96 Nasal Cannula 2.0 Lab Results: Results Past 24 Hours Test 11/20/17 11:27 11/20/17 16:11 11/20/17 20:11 11/21/17 06:12 Range/Units Bedside Glucose 241 194 140 70-99 mg/dl Prothrombin Time 26.7 9.0-12.0 SECONDS Prothromb Time International Ratio 2.6 0.9-1.1 Sodium Level 141 136-145 mmol/L Potassium Level 3.6 3.5-5.1 mmol/L Chloride Level 109 98-107 mmol/L Carbon Dioxide Level 24 21-32 mmol/L Anion Gap 8.0 3-11 mmol/L Blood Urea Nitrogen 25 7-18 mg/dl Creatinine 1.10 0.60-1.40 mg/dl Est Creatinine Clear Calc Drug Dose 52.3 ml/min Estimated GFR () 73.6 Estimated GFR (Non- 63.5 BUN/Creatinine Ratio 23.1 10-20 Random Glucose 151 70-99 mg/dl Calcium Level 8.9 8.5-10.1 mg/dl Magnesium Level 2.2 1.8-2.4 mg/dl Test 11/21/17 06:31 Range/Units Bedside Glucose 143 70-99 mg/dl
[2017-11-21] MEDS: LISINOPRIL 40 MG TAB PO SCH (08:42)
[2017-11-21] MEDS: GABAPENTIN 300 MG CAP PO SCH ×3 (08:43→21:10)
[2017-11-21] MEDS: ASPIRIN 81 MG ECTAB PO SCH (08:43)
[2017-11-21] MEDS: INSULIN GLARGINE SOLOSTAR 100 UNITS/ML 3 ML PEN SC SCH ×2 (08:47→21:13)
[2017-11-21] MEDS: INSULIN ASPART 100 UNITS/ML 3 ML PEN SC SCH ×4 (08:47→21:13)
--- NOTE | 2017-11-21 10:30 | PULMONARY PROGRESS NOTE ---
DATE: 11/21/2017 TIME: 10:05 a.m. SUBJECTIVE: The patient feels about the same. He still has some degree of shortness of breath with any exertion. His heart rates have remained relatively fast. He remains in atrial fibrillation. He did not have any pauses or bradycardia overnight according to nursing staff. He is very tired this morning. He was sleeping heavily when I came into the room. He has very little cough. OBJECTIVE: GENERAL: The patient is cooperative, alert and oriented. He was in no distress. ENT EXAMINATION: Unremarkable. CARDIAC: Rate currently is 130. The rhythm is irregularly irregular. His heart rate had been about 110 prior to me awakening him. Blood pressure is 110/75. LUNGS: Auscultation of the lung nicole reveals dry rales at the bases, greater on the right. Respiratory rate 20. Saturation is 94% on 2 L. ABDOMEN: Soft and nontender. Bowel sounds are present. EXTREMITIES: Showed no cyanosis, clubbing, or edema. LABORATORY DATA: White count today is 7.38. Hemoglobin 12.3. Platelets 216,000. Electrolytes show sodium 141, potassium 3.6, chloride 109, bicarb 24. BUN 25, creatinine 1.1. IMPRESSIONS: 1. Rapid atrial fibrillation. 2. Small bilateral pleural effusions. 3. [id number] mitral regurgitation. 4. Pulmonary hypertension. 5. Dyspnea with exertion. COMMENTS AND RECOMMENDATIONS: The patient seems stable, but still has persistent tachyarrhythmias. I have no specific pulmonary suggestions at present. As noted in a prior note, I believe he probably should have a sleep study in the sleep lab after he is stabilized and at home in light of his history of atrial fibrillation with some degree of bradyarrhythmia at night while on medications. He does have rales heard posteriorly. It is very difficult to determine if he had amiodarone toxicity or not. He has had breathing issues over the past several months despite fairly normal pulmonary functions. I will sign off for now. Please feel free to reconsult pulmonary service if we might be able to assist.
[2017-11-21] MEDS: FUROSEMIDE INJ 40 MG in SYRINGE 0 ML IV SCH (10:31)
[2017-11-21] MEDS ORDERED: DIGOXIN IV 250 MCG in SYRINGE 9 ML IV ONE (12:15)
--- NOTE | 2017-11-21 12:19 | Cardiology Follow-Up ---
Subjective Subjective Date of Service: Nov 21, 2017. Pt evaluation today including: conversation w/ patient, conversation w/ family , physical exam, chart review, lab review, review of studies, review of inpatient medication list Additional Details: The patient states that he is a little less short of breath today. He is having atrial fibrillation with RVR and appears dyspneic with any type of movement. He denies chest pain. No dizziness or lightheadedness. Problem List Medical Problems: (1) Atrial fibrillation with rapid ventricular response Status: Acute (2) Contusion of left knee Status: Acute (3) Dental caries Status: Acute (4) Hematoma of left lower extremity Status: Acute (5) Tooth ache Status: Acute Review of Systems Respiratory: No cough, No wheezing, No shortness of breath, No dyspnea at rest , No hemoptysis Cardiac: No chest pain, No orthopnea, No PND, No edema, No claudication, No palpitations Objective Vital Signs Last Vital Signs Documentation Date Time Temp Pulse Resp B/P (MAP) Pulse Ox O2 Delivery O2 Flow Rate FiO2 11/21/17 11:51 36.6 134 18 90/76 (81) 96 11/21/17 08:00 Nasal Cannula 2.0 Physical Exam: General Appearance: no apparent distress ENT: normal ENT inspection Neck: supple, no JVD, no carotid bruits Respiratory/Chest: chest non-tender, lungs clear, normal breath sounds Cardiovascular: + systolic murmur, + irregularly irregular Abdomen: normal bowel sounds, non tender, soft, no organomegaly Extremities: normal range of motion, non-tender, normal inspection, no pedal edema 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 He is dyspneic with any type of activity and continues to have high heart rates. He had been started on a diltiazem drip which was stopped early yesterday morning due to a heart pause. His blood pressure is on the low side and I am reluctant to increase his Lopressor or start him back on diltiazem. I am going to load him with digoxin. Hopefully I will will improve his heart rate. He remains in negative numbers and we will continue diuresis. Currently he is stable. I am going to hold his Coumadin in anticipation he may need a right and left heart catheterization.
[2017-11-21] MEDS ORDERED: WARFARIN SOD 2 MG TAB PO SCH (16:00)
[2017-11-21] MEDS: MONTELUKAST SOD 5 MG CHEWABLE TAB PO SCH (21:10)
[2017-11-21] MEDS: ROSUVASTATIN CALCIUM 20 MG TAB PO SCH (21:10)
[2017-11-22] VITALS (12 sets, daily range): BP systolic 96–125; BP diastolic 69–96; PULSE 88–112; TEMP 36.3–36.7; O2SAT 93–99
[2017-11-22] MEDS: METOPROLOL TARTRATE 25 MG TAB PO SCH ×5 (00:12→23:29)
[2017-11-22 06:07] LABS: INR 2.5 (0.9-1.1)
[2017-11-22 06:26] LABS: CALCIUM 8.8 mg/dl (8.5-10.1); CREATININE 1.32 mg/dl (0.60-1.40)
[2017-11-22] MEDS: FUROSEMIDE INJ 40 MG in SYRINGE 0 ML IV SCH (08:03)
[2017-11-22] MEDS: ASPIRIN 81 MG ECTAB PO SCH (08:04)
[2017-11-22] MEDS: GABAPENTIN 300 MG CAP PO SCH ×3 (08:04→19:56)
[2017-11-22] MEDS: LISINOPRIL 40 MG TAB PO SCH (08:04)
[2017-11-22] MEDS: INSULIN ASPART 100 UNITS/ML 3 ML PEN SC SCH ×4 (08:08→21:00)
[2017-11-22] MEDS: INSULIN GLARGINE SOLOSTAR 100 UNITS/ML 3 ML PEN SC SCH ×2 (08:09→21:31)
--- NOTE | 2017-11-22 09:48 | Progress Note ---
Internal Med Progress Note Date of Service: Nov 22, 2017. Provider Documentation: SUBJECTIVE: Seen and examined at bedside Doing well today Denies chest pain, SOB, palpitations,dizziness, nausea No other complaints Heart rate better Coumadin on hold for possible cath OBJECTIVE: Vital Signs-as noted below Physical Exam: General Appearance:Moderately built and nourished, no apparent distress Head: normocephalic, Atraumatic Eyes: normal inspection, EOMI, PERRL Neck: supple, Trachea midline Respiratory/Chest: Normal breath sounds, CTA Cardiovascular: Irregularly Irregular, No murmur Abdomen/GI:Soft, Non tender, Bowel sounds present Extremities/Musculoskelatal:normal inspection, no edema Neurologic/Psych:AAOX3, grossly no focal neurological deficits Skin: normal color, warm Lab data as noted below. ASSESSMENT & PLAN: Atrial Fibrillation RVR: Severe Mitral Regurgitation TSH: normal CXR:The heart is mildly enlarged. There is elevation of the interstitium with septal edema Monitor electrolytes Continue metoprolol for rate control IV Lopressor PRN Coumadin on hold for possible cardiac cath Monitor INR: 2.5 Cardiac enzymes X 3: Negative ECHO as below May need right and left heart catheterization and possible Mitral valve surgery Cardiology following Acute respiratory failure with Hypoxia CTA:No PE. Small b/l pleural effusions. Bibasilar atelectasis. Prominent pulmonary vasculature. Likely secondary to afib RVR Pulm HTN could be contributing Oxygen support Appreciate Pulmonology Input continue diuresis with IV Lasix Needs sleep study as outpatient HTN continue lisinopril, metoprolol monitor HLD Continue Crestor DM II A1C: 7.2 Hold home oral agents Continue SSI, Lantus Monitor BGs H/O Prostate Cancer S/P Radiation Continue Hytrin Allergic Rhinitis: Continue Singulair DVT Px On Coumadin Disposition: Monitor in Telemetry PROCEDURES: ECHO: The rhythm is atrial fibrillation. * Ejection Fraction = 55-60%. * The left atrium is moderately dilated. * There is borderline prolapse of the anterior mitral valve leaflet. * There is moderate to severe mitral regurgitation. * There is mild tricuspid regurgitation. * The estimated systolic pulmonary arterial pressure is 50 mmHg. * Dilated inferior vena cava with reduced collapsability with sniff indicates an elevated right atrial pressure of 15 mmHg Vital Signs: Date Time Temp Pulse Resp B/P (MAP) Pulse Ox O2 Delivery O2 Flow Rate FiO2 11/22/17 06:57 36.6 112 19 99/89 (92) 95 Nasal Cannula 2.0 11/22/17 06:07 108 103/75 (84) 11/22/17 04:33 99 Nasal Cannula 2.0 11/22/17 03:23 36.7 91 18 96/78 (84) 99 Nasal Cannula 2.0 11/22/17 00:13 104 115/82 (93) 11/22/17 00:05 95 Nasal Cannula 2.0 11/21/17 23:39 36.7 94 20 103/80 (88) 96 Nasal Cannula 1.0 11/21/17 20:00 Nasal Cannula 2.0 11/21/17 19:40 37.0 105 22 121/72 (88) 97 Nasal Cannula 2.0 11/21/17 17:52 110 113/81 (92) 11/21/17 16:08 Nasal Cannula 2.0 11/21/17 15:32 36.9 100 22 96/63 (74) 96 Nasal Cannula 2.0 11/21/17 12:42 145 11/21/17 12:14 145 119/74 (89) 11/21/17 12:00 95 Nasal Cannula 2.0 11/21/17 11:51 36.6 134 18 90/76 (81) 96 Lab Results: Results Past 24 Hours Test 11/21/17 11:25 11/21/17 16:22 11/21/17 20:24 11/22/17 05:28 Range/Units Bedside Glucose 227 305 217 70-99 mg/dl Prothrombin Time 25.4 9.0-12.0 SECONDS Prothromb Time International Ratio 2.5 0.9-1.1 Sodium Level 143 136-145 mmol/L Potassium Level 4.0 3.5-5.1 mmol/L Chloride Level 109 98-107 mmol/L Carbon Dioxide Level 28 21-32 mmol/L Anion Gap 6.0 3-11 mmol/L Blood Urea Nitrogen 29 7-18 mg/dl Creatinine 1.32 0.60-1.40 mg/dl Est Creatinine Clear Calc Drug Dose 43.0 ml/min Estimated GFR () 59.0 Estimated GFR (Non- 50.9 BUN/Creatinine Ratio 22.2 10-20 Random Glucose 136 70-99 mg/dl Calcium Level 8.8 8.5-10.1 mg/dl Magnesium Level 2.1 1.8-2.4 mg/dl Test 11/22/17 06:56 Range/Units Bedside Glucose 147 70-99 mg/dl
[2017-11-22] MEDS ORDERED: DIGOXIN IV 250 MCG in SYRINGE 9 ML IV ONE ×2 (10:00→14:30)
--- NOTE | 2017-11-22 12:55 | PROGRESS NOTE ---
DATE: 11/22/2017 The patient seen and examined. Chart, medications, telemetry reviewed. SUBJECTIVE: The patient notes breathing is slightly easier, continues to have elevated ventricular response rates to atrial fibrillation despite medications. Blood pressure is relatively low. Has manifested relatively good diuresis over the past 2 days. Weight is down 2 kilograms. He denies any dizziness or lightheadedness. Notes no syncope or near syncope. Notes no chest pains or discomfort. Notes no fevers or chills. OBJECTIVE: VITAL SIGNS: Heart rate is 90-150 with an average heart rate of 112-120, blood pressure 103/75. HEENT: Normocephalic, atraumatic. Nares without discharge. Throat was clear. NECK: Supple without thyromegaly or lymphadenopathy. There is no distinct jugular venous distention. LUNGS: Notable for diminished breath sounds, but no rhonchi or wheeze. CARDIOVASCULAR: Irregular, irregular with a grade 3/6 systolic murmur at the apex. There is no diastolic murmur. PMI is nondisplaced. ABDOMEN: Soft, nontender. EXTREMITIES: Without cyanosis or clubbing. There is no peripheral edema. LABORATORY DATA: Sodium is 133, potassium is 4.0, chloride is 109, bicarbonate is 28, BUN is 29, creatinine is 1.3. INR today is 2.5. IMPRESSION: A 77-year-old male with difficulties as follows: 1. Atrial fibrillation with rapid ventricular response, poorly controlled still. Plan will be to reduce dose lisinopril to allow increased dose of metoprolol. Continue load with digoxin for additional dose of 0.25 mg IV this morning. 2. Mitral valve disease with at least moderate mitral insufficiency. 3. Chronic dyspnea and pulmonary hypertension, ill-defined etiology, question amiodarone toxicity versus underlying pulmonary process versus secondary to mitral valve disease. Anticipate plan as above. Continue with goals of rate control. We will hold anticoagulation with possible plans for right and left heart catheterization later this week, possible transesophageal echocardiogram as course of management with or without cardioversion. The patient will continue on IV diuretics. He is manifesting relatively good response and feels less dyspneic at rest.
[2017-11-22] MEDS: MONTELUKAST SOD 5 MG CHEWABLE TAB PO SCH (19:56)
[2017-11-22] MEDS: ROSUVASTATIN CALCIUM 20 MG TAB PO SCH (19:56)
[2017-11-22] MEDS ORDERED: DIGOXIN 0.25 MG TAB PO STA (21:43)
[2017-11-23] VITALS (8 sets, daily range): BP systolic 111–136; BP diastolic 75–82; PULSE 63–94; TEMP 36.4–37.2; O2SAT 93–96
[2017-11-23] MEDS: METOPROLOL TARTRATE 25 MG TAB PO SCH ×4 (05:53→23:31)
[2017-11-23 06:00] LABS: HEMATOCRIT 38.6 % (42-52); HEMOGLOBIN 13.1 g/dL (14.0-18.0); MEAN CORPUSCULAR HEMOGLOBIN 33.6 pg (25-34); MEAN CORPUSCULAR HGB CONC 33.9 g/dl (32-36); MEAN PLATELET VOLUME 10.8 fL (7.4-10.4); PLATELET COUNT 234 K/uL (130-400); RED CELL DISTRIBUTION WIDTH CV 12.8 % (11.5-14.5); WHITE BLOOD COUNT 7.93 K/uL (4.8-10.8)
[2017-11-23 06:11] LABS: INR 1.9 (0.9-1.1)
[2017-11-23 06:35] LABS: CALCIUM 8.8 mg/dl (8.5-10.1); CREATININE 1.23 mg/dl (0.60-1.40); POTASSIUM 3.9 mmol/L (3.5-5.1)
[2017-11-23] MEDS: LISINOPRIL 10 MG TAB PO SCH (08:55)
[2017-11-23] MEDS: FUROSEMIDE INJ 40 MG in SYRINGE 0 ML IV SCH (08:55)
[2017-11-23] MEDS: INSULIN GLARGINE SOLOSTAR 100 UNITS/ML 3 ML PEN SC SCH ×2 (09:03→21:25)
[2017-11-23] MEDS: INSULIN ASPART 100 UNITS/ML 3 ML PEN SC SCH ×4 (09:04→21:25)
[2017-11-23] MEDS: ASPIRIN 81 MG ECTAB PO SCH (09:24)
[2017-11-23] MEDS: GABAPENTIN 300 MG CAP PO SCH ×3 (09:25→20:13)
--- NOTE | 2017-11-23 12:34 | Progress Note ---
Internal Med Progress Note Date of Service: November 23, 2017. Provider Documentation: SUBJECTIVE: The patient was seen and examined in the telemetry unit. He was admitted with the Fredy mo with rapid ventricular response and was very difficult to control the rate Darren remains around 100 today Does not have any complaints of shortness of breath, chest pain, palpitation OBJECTIVE: Vital Signs-as noted below Exam: General-no apparent distress at rest Eyes-normal ENT-normal Neck-supple Lungs-clear to auscultate bilaterally Heart-irregular,2/6 ESM over precordium Abdomen-benign, soft, nontender, bowel sounds present Extremities-no edema Neuro-alert, awake and oriented 3 No focal neuro deficit Lab data as noted below. ASSESSMENT & PLAN: Atrial Fibrillation RVR: Severe Mitral Regurgitation Continue metoprolol for rate control IV Lopressor PRN Cardiac enzymes X 3: Negative ECHO as below Appreciate cardiology input Received Digoxin for rate controp and now on BB Possible Right and Left cardiac cath and or STEVE with or without cardioversion in a day or two Acute respiratory failure with Hypoxia CTA:No PE. Small b/l pleural effusions. Bibasilar atelectasis. Prominent pulmonary vasculature. Pulm HTN could be contributing Oxygen as neded Appreciate Pulmonology Input Continue diuresis with IV Lasix Needs sleep study as outpatient HTN continue lisinopril, metoprolol Remains stable HLD Continue Crestor DM II A1C: 7.2 Hold home oral agents Continue SSI, Lantus Monitor BGs H/O Prostate Cancer S/P Radiation Continue Hytrin Allergic Rhinitis: Continue Singulair DVT Px On Coumadin -on hold now for the procedure 11/23/17 Disposition: Monitor in Telemetry PROCEDURES: ECHO: The rhythm is atrial fibrillation. * Ejection Fraction = 55-60%. * The left atrium is moderately dilated. * There is borderline prolapse of the anterior mitral valve leaflet. * There is moderate to severe mitral regurgitation. * There is mild tricuspid regurgitation. * The estimated systolic pulmonary arterial pressure is 50 mmHg. * Dilated inferior vena cava with reduced collapsability with sniff indicates an elevated right atrial pressure of 15 mmHg DISPOSITION Awaited Vital Signs: Date Time Temp Pulse Resp B/P (MAP) Pulse Ox O2 Delivery O2 Flow Rate FiO2 11/23/17 11:37 36.4 73 20 136/80 (98) 96 11/23/17 06:28 37.2 94 19 118/81 (93) 96 Nasal Cannula 2.0 Humidified Oxygen 11/23/17 04:00 Nasal Cannula 2.0 Humidified Oxygen 11/23/17 03:56 37.0 91 19 113/75 (88) 94 Nasal Cannula 2.0 11/23/17 00:00 Nasal Cannula 2.0 Humidified Oxygen 11/22/17 23:27 36.6 93 19 125/85 (98) 98 Nasal Cannula 2.0 11/22/17 22:16 80 11/22/17 20:04 36.3 90 22 118/96 (103) 98 Nasal Cannula 2.0 11/22/17 20:00 Nasal Cannula 2.0 Humidified Oxygen 11/22/17 16:00 Nasal Cannula 2.0 Humidified Oxygen 11/22/17 15:59 36.3 88 26 106/69 (81) 99 Nasal Cannula 2.0 11/22/17 15:26 116 Lab Results: Results Past 24 Hours Test 11/22/17 16:23 11/22/17 21:06 11/23/17 05:31 11/23/17 07:21 Range/Units Bedside Glucose 228 174 147 70-99 mg/dl White Blood Count 7.93 4.8-10.8 K/uL Red Blood Count 3.90 4.7-6.1 M/uL Hemoglobin 13.1 14.0-18.0 g/dL Hematocrit 38.6 42-52 % Mean Corpuscular Volume 99.0 80-100 fL Mean Corpuscular Hemoglobin 33.6 25-34 pg Mean Corpuscular Hemoglobin Concent 33.9 32-36 g/dl RDW Standard Deviation 46.0 36.4-46.3 fL RDW Coefficient of Variation 12.8 11.5-14.5 % Platelet Count 234 130-400 K/uL Mean Platelet Volume 10.8 7.4-10.4 fL Prothrombin Time 20.1 9.0-12.0 SECONDS Prothromb Time International Ratio 1.9 0.9-1.1 Sodium Level 141 136-145 mmol/L Potassium Level 3.9 3.5-5.1 mmol/L Chloride Level 108 98-107 mmol/L Carbon Dioxide Level 28 21-32 mmol/L Anion Gap 5.0 3-11 mmol/L Blood Urea Nitrogen 29 7-18 mg/dl Creatinine 1.23 0.60-1.40 mg/dl Est Creatinine Clear Calc Drug Dose 46.0 ml/min Estimated GFR () 64.3 Estimated GFR (Non- 55.5 BUN/Creatinine Ratio 23.6 10-20 Random Glucose 136 70-99 mg/dl Calcium Level 8.8 8.5-10.1 mg/dl Magnesium Level 2.3 1.8-2.4 mg/dl Test 11/23/17 11:33 Range/Units Bedside Glucose 219 70-99 mg/dl
[2017-11-23] MEDS ORDERED: DC ALL ANTICOAGULANTS ONE (13:15)
--- NOTE | 2017-11-23 14:13 | PROGRESS NOTE ---
DATE: 11/23/2017 The patient is seen and examined. Chart, medications, telemetry reviewed. SUBJECTIVE: Heart rates are coming under better control. The patient is oxygenating better. Denies any chest pain or discomfort. Notes no dizziness or lightheadedness. Weight is down at least 3 kg. OBJECTIVE: VITAL SIGNS: Heart rate is 73-80, blood pressure is 136/80. HEENT: Normocephalic and atraumatic. NECK: Thin. There is no distinct jugular venous distention. RESPIRATORY: Lungs are notable for mildly diminished breath sounds but generally are clear. CARDIOVASCULAR: Irregularly irregular, grade 2 to 3 over 6 systolic murmur at the apex. There is no diastolic murmur. GASTROINTESTINAL: The abdomen is soft and nontender. EXTREMITIES: Without cyanosis or clubbing. There is no edema. LABORATORY STUDIES: Sodium is 141, potassium is 3.9, chloride is 108, bicarbonate is 28, BUN is 29, creatinine is 1.2, glucose is 136. INR is 1.9, hemoglobin is 13.1. IMPRESSION: A 77-year-old male with issues as follows: 1. Atrial fibrillation with rapid ventricular response. 2. Decompensated valvular/diastolic heart failure. 3. Pulmonary hypertension, mixed etiology. 4. Mitral insufficiency. RECOMMENDATIONS: 1. Will continue rate control with metoprolol and digoxin. 2. Anticipate right and left heart catheterization in the a.m. to assess for coronary disease and to quantify/qualify pulmonary hypertension and mitral insufficiency. 3. Furosemide will be held after today's dose IV. 4. Consideration made for STEVE with or without cardioversion later in this admission.
[2017-11-23] MEDS: DIGOXIN 0.125 MG TAB PO SCH (15:38)
[2017-11-23] MEDS: MONTELUKAST SOD 5 MG CHEWABLE TAB PO SCH (20:13)
[2017-11-23] MEDS: ROSUVASTATIN CALCIUM 20 MG TAB PO SCH (20:13)
[2017-11-24] VITALS (16 sets, daily range): BP systolic 108–160; BP diastolic 57–99; PULSE 64–103; TEMP 36.4–36.8; O2SAT 92–98
[2017-11-24 05:43] LABS: HEMATOCRIT 39.6 % (42-52); HEMOGLOBIN 13.4 g/dL (14.0-18.0); MEAN CELL VOLUME 98.5 fL (80-100); MEAN CORPUSCULAR HEMOGLOBIN 33.3 pg (25-34); MEAN CORPUSCULAR HGB CONC 33.8 g/dl (32-36); MEAN PLATELET VOLUME 10.8 fL (7.4-10.4); PLATELET COUNT 234 K/uL (130-400); RED CELL DISTRIBUTION WIDTH CV 12.7 % (11.5-14.5); RED CELL DISTRIBUTION WIDTH SD 45.8 fL (36.4-46.3); WHITE BLOOD COUNT 8.38 K/uL (4.8-10.8)
[2017-11-24 05:52] LABS: INR 1.5 (0.9-1.1)
[2017-11-24] MEDS: METOPROLOL TARTRATE 25 MG TAB PO SCH ×3 (06:36→17:28)
[2017-11-24] MEDS: INSULIN ASPART 100 UNITS/ML 3 ML PEN SC SCH ×4 (06:37→21:20)
[2017-11-24 06:55] LABS: PTT PATIENT 31.3 SECONDS (21.0-31.0)
[2017-11-24] MEDS: LISINOPRIL 10 MG TAB PO SCH (08:15)
[2017-11-24] MEDS: GABAPENTIN 300 MG CAP PO SCH ×3 (08:15→21:15)
[2017-11-24] MEDS: ASPIRIN 81 MG ECTAB PO SCH (08:15)
[2017-11-24] MEDS: INSULIN GLARGINE SOLOSTAR 100 UNITS/ML 3 ML PEN SC SCH ×2 (08:18→21:20)
--- NOTE | 2017-11-24 09:57 | PROGRESS NOTE ---
DATE: 11/24/2017 The patient seen and examined. Chart, medications, telemetry reviewed. SUBJECTIVE: The patient notes to have a good night. Telemetry reveals better control of atrial fibrillation, rates in the 70s this morning. Denies any chest pains, tachypalpitations, syncope, or near syncope. OBJECTIVE: VITAL SIGNS: Heart rate is 73. Blood pressure is 131/78. HEENT EXAMINATION: Normocephalic, atraumatic. Nares without discharge. Throat was clear. NECK: Supple without thyromegaly, lymphadenopathy, JVD, or bruit. LUNGS: Notable for diminished breath sounds, but are clear. CARDIOVASCULAR EXAMINATION: Irregularly irregular, grade 2-3/6 systolic murmur, no diastolic murmur. ABDOMEN: Soft, nontender. EXTREMITIES: Without cyanosis or clubbing. There is no edema. LABORATORY DATA: INR this morning is 1.5. IMPRESSION: This 77-year-old male presented with [id number] decompensated systolic heart failure secondary to atrial fibrillation with rapid ventricular response, valvular heart disease. The patient responded to IV diuresis and rate control. Underlying history is notable for elevated pulmonary pressures of multifactorial etiology. RECOMMENDATIONS: The patient will be kept n.p.o. and proceed with right and left heart catheterization later today. BMP ordered this morning prior to the procedure. The patient is agreeable. Procedure and risks explained in detail to the patient and signed informed consent obtained.
[2017-11-24 10:30] LABS: CALCIUM 8.9 mg/dl (8.5-10.1); CREATININE 1.22 mg/dl (0.60-1.40); POTASSIUM 4.1 mmol/L (3.5-5.1)
[2017-11-24] MEDS ORDERED: DIAZEPAM 5MG TAB ONE (11:10)
--- NOTE | 2017-11-24 11:33 | Progress Note ---
Internal Med Progress Note Date of Service: November 24, 2017. Provider Documentation: SUBJECTIVE: The patient was seen and examined in the telemetry unit. He was admitted with the Fredy mo with rapid ventricular response and was very difficult to control the rate Darren remains around 100 today Does not have any complaints of shortness of breath, chest pain, palpitation OBJECTIVE: Vital Signs-as noted below Exam: General-no apparent distress at rest Eyes-normal ENT-normal Neck-supple Lungs-clear to auscultate bilaterally Heart-irregular,2/6 ESM over precordium Abdomen-benign, soft, nontender, bowel sounds present Extremities-no edema Neuro-alert, awake and oriented 3 No focal neuro deficit Lab data as noted below. ASSESSMENT & PLAN: Atrial Fibrillation RVR: Severe Mitral Regurgitation Continue metoprolol for rate control IV Lopressor PRN Cardiac enzymes X 3: Negative ECHO::The rhythm is atrial fibrillation. * Ejection Fraction = 55-60%. * The left atrium is moderately dilated. * There is borderline prolapse of the anterior mitral valve leaflet. * There is moderate to severe mitral regurgitation. * There is mild tricuspid regurgitation. * The estimated systolic pulmonary arterial pressure is 50 mmHg. * Dilated inferior vena cava with reduced collapsability with sniff indicates an elevated right atrial pressure of 15 mmHg Appreciate cardiology input Received Digoxin for rate controp and now on BB Possible Right and Left cardiac cath and or STEVE with or without cardioversion on 11/24 Remains stable [id number] decompensated systolic heart failure Secondary to atrial fibrillation with rapid ventricular response, valvular heart disease Received IV Lasix and will adjust further doses if needed Cardiology managing Acute respiratory failure with Hypoxia CTA:No PE. Small b/l pleural effusions. Bibasilar atelectasis. Prominent pulmonary vasculature. Pulm HTN could be contributing Oxygen as neded Appreciate Pulmonology Input Continue diuresis with IV Lasix Needs sleep study as outpatient HTN continue lisinopril, metoprolol Remains stable HLD Continue Crestor DM II A1C: 7.2 Hold home oral agents Continue SSI, Lantus Monitor BGs H/O Prostate Cancer S/P Radiation Continue Hytrin Allergic Rhinitis: Continue Singulair DVT Px On Coumadin -on hold now for the procedure 11/23/17 INR 1.5 on 11/24 Disposition: Monitor in Telemetry Awaited Vital Signs: Date Time Temp Pulse Resp B/P (MAP) Pulse Ox O2 Delivery O2 Flow Rate FiO2 11/24/17 08:18 36.7 73 20 131/78 (95) 96 Room Air 11/24/17 08:00 Room Air 11/24/17 04:00 Room Air 11/24/17 03:50 36.8 96 14 117/57 (77) 95 Room Air 11/23/17 23:59 Room Air 11/23/17 23:06 36.6 63 18 123/79 (94) 93 Room Air 11/23/17 20:00 Room Air 11/23/17 19:27 36.6 81 20 132/82 (99) 95 Room Air 11/23/17 16:00 Room Air 11/23/17 15:38 72 11/23/17 15:15 36.7 86 20 111/78 (89) 96 Room Air 11/23/17 12:00 93 Room Air 11/23/17 11:37 36.4 73 20 136/80 (98) 96 Lab Results: Results Past 24 Hours Test 11/23/17 11:33 11/23/17 16:19 11/23/17 20:51 11/24/17 05:17 Range/Units Bedside Glucose 219 188 199 70-99 mg/dl Sodium Level 140 136-145 mmol/L Potassium Level 4.1 3.5-5.1 mmol/L Chloride Level 108 98-107 mmol/L Carbon Dioxide Level 26 21-32 mmol/L Anion Gap 6.0 3-11 mmol/L Blood Urea Nitrogen 33 7-18 mg/dl Creatinine 1.22 0.60-1.40 mg/dl Est Creatinine Clear Calc Drug Dose 46.2 ml/min Estimated GFR () 65.0 Estimated GFR (Non- 56.0 BUN/Creatinine Ratio 26.6 10-20 Random Glucose 165 70-99 mg/dl Calcium Level 8.9 8.5-10.1 mg/dl Test 11/24/17 05:20 11/24/17 06:19 Range/Units White Blood Count 8.38 4.8-10.8 K/uL Red Blood Count 4.02 4.7-6.1 M/uL Hemoglobin 13.4 14.0-18.0 g/dL Hematocrit 39.6 42-52 % Mean Corpuscular Volume 98.5 80-100 fL Mean Corpuscular Hemoglobin 33.3 25-34 pg Mean Corpuscular Hemoglobin Concent 33.8 32-36 g/dl RDW Standard Deviation 45.8 36.4-46.3 fL RDW Coefficient of Variation 12.7 11.5-14.5 % Platelet Count 234 130-400 K/uL Mean Platelet Volume 10.8 7.4-10.4 fL Prothrombin Time 15.5 9.0-12.0 SECONDS Prothromb Time International Ratio 1.5 0.9-1.1 Activated Partial Thromboplast Time 31.3 21.0-31.0 SECONDS Partial Thromboplastin Ratio 1.2 Bedside Glucose 158 70-99 mg/dl
[2017-11-24] MEDS ORDERED: SODIUM CHLORIDE 0.9% 1000ML 250 ML IV PRN (13:02)
[2017-11-24] MEDS ORDERED: ATROPINE SULFATE 0.1 MG/ML 5ML SYR IV PRN (13:15)
[2017-11-24] MEDS ORDERED: ACETAMINOPHEN 325 MG TAB PO PRN (13:15)
[2017-11-24] MEDS ORDERED: SODIUM CHLORIDE 0.9% 1000ML 1,000 ML IV SCH (14:00)
--- NOTE | 2017-11-24 17:01 | [facility] Post Operative Brief Note ---
Preliminary Procedure Note Procedure Date November 24, 2017. 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 Driver(s) Mabel Wright Estimated Blood Loss Less than 15 cc Medication(s) Lidocaine 1% (Local infiltration) Preliminary Findings Right dominant coronary anatomy with mild to moderate coronary atherosclerosis Left main moderate calcification Moderate calcification of proximal left anterior descending with long 40-50% proximal narrowing on modest caliber type III vessel Ramus intermedius small Circumflex consisting of obtuse marginal and posterior lateral branch with mild irregularities Right coronary large dominant, with large right ventricular branch and midportion modest PDA and 2 posterior ventricular branches with mild irregularities only Normal /hyperdynamic LV function EF 65-70% with 3+ mitral insufficiency Mild hypoxia High normal right heart pressures Mildly elevated left end-diastolic pressure but with prominent V wave present mean pulmonary capillary wedge pressure 17 mmHg Recommendations Medical therapy and/or Counseling Specimens None Fluids (cc crystalloids) 134 cc Anesthesia Anxiolytics only Procedural Complication(s) None Disposition PCU
[2017-11-24] MEDS: DIGOXIN 0.125 MG TAB PO SCH (17:28)
[2017-11-24] MEDS ORDERED: WARFARIN SOD 2.5 MG TAB PO ONE (18:30)
[2017-11-24] MEDS ORDERED: NURSING VERBAL MED ORDER ONE (20:30)
[2017-11-24] MEDS: ROSUVASTATIN CALCIUM 20 MG TAB PO SCH (21:16)
[2017-11-24] MEDS: MONTELUKAST SOD 5 MG CHEWABLE TAB PO SCH (23:32)
[2017-11-25] VITALS (14 sets, daily range): BP systolic 107–141; BP diastolic 63–91; PULSE 76–117; TEMP 36.5–37.1; O2SAT 93–98
[2017-11-25] MEDS: SODIUM CHLORIDE 0.9% 1000ML 1,000 ML IV SCH ×2 (06:11→19:29)
[2017-11-25 06:26] LABS: INR 1.3 (0.9-1.1)
[2017-11-25 06:50] LABS: CREATININE 1.12 mg/dl (0.60-1.40); POTASSIUM 3.9 mmol/L (3.5-5.1)
[2017-11-25] MEDS: LISINOPRIL 10 MG TAB PO SCH (08:34)
[2017-11-25] MEDS: GABAPENTIN 300 MG CAP PO SCH ×3 (08:34→21:09)
[2017-11-25] MEDS: INSULIN ASPART 100 UNITS/ML 3 ML PEN SC SCH ×4 (08:35→21:12)
[2017-11-25] MEDS: INSULIN GLARGINE SOLOSTAR 100 UNITS/ML 3 ML PEN SC SCH ×2 (08:36→21:13)
[2017-11-25] MEDS: METOPROLOL SUCC 50MG EXT REL TAB PO SCH ×2 (09:42→17:24)
[2017-11-25] MEDS: ASPIRIN 81 MG ECTAB PO SCH (09:43)
--- NOTE | 2017-11-25 10:25 | PROGRESS NOTE ---
DATE: 11/25/2017 The patient seen and examined. Chart, medications, telemetry reviewed. SUBJECTIVE: The patient continues to manifest gradual improvement. Denies any chest pains or dizziness. Notes no lightheadedness. Has been up in room with assistance. Telemetry reveals gradually improving rate control of atrial fibrillation. OBJECTIVE: VITAL SIGNS: Heart rate 79, blood pressure is 127/82. HEENT EXAMINATION: Normocephalic, atraumatic. Nares without discharge. Throat was clear. NECK: Without thyromegaly or lymphadenopathy. There is no jugular venous distention. LUNGS: Reveal mildly diminished breath sounds, but are predominantly clear. CARDIOVASCULAR EXAMINATION: Irregularly irregular with a grade 2/6 holosystolic murmur at the apex. There is no diastolic murmur. ABDOMEN: Soft, nontender. EXTREMITIES: Without cyanosis or clubbing. There is no peripheral edema. Right femoral access sites have healed well without hematoma. LABORATORY DATA: Sodium is 142, potassium 3.9, chloride is 109, bicarb is 27, BUN is 26, creatinine is 1.1. IMPRESSION: This is a 77-year-old male with a complex history, admitted with [id number] decompensated congestive heart failure secondary to atrial fibrillation with rapid ventricular response and associated mitral valve disease. Underlying issues of chronic hypoxia are gradually improving. RECOMMENDATIONS: We will plan on continuing current medications after switch from metoprolol to metoprolol succinate, are already performed this morning. We anticipate transesophageal echocardiogram to further define mitral valve disease, gradually increase activities, resume anticoagulation with warfarin has already begun.
[2017-11-25] MEDS ORDERED: BENZOCAIN/TETRACA/BUTAM SPRAY 200 APPLN/20 GM SPRY ONE (13:32)
[2017-11-25] MEDS ORDERED: CANNULA ONE (13:33)
[2017-11-25] MEDS ORDERED: MIDAZOLAM HCL 1 MG/ML 2ML VIAL ONE (13:33)
[2017-11-25] MEDS ORDERED: MEPERIDINE HCL 50 MG/ML CARP ONE (13:33)
--- NOTE | 2017-11-25 14:15 | Pre Sedation Assessment ---
Pre Sedation Assessment General Date of Sedation: November 25, 2017. Vital Signs Past 12 Hours Date Time Temp Pulse Resp B/P (MAP) Pulse Ox O2 Delivery O2 Flow Rate FiO2 11/25/17 13:46 96 16 133/83 (100) 99 Room Air 11/25/17 12:00 Room Air 11/25/17 11:22 36.6 76 18 129/83 (98) 94 Room Air 11/25/17 08:00 Room Air 11/25/17 07:02 36.5 79 18 127/90 (102) 94 Room Air 11/25/17 04:00 96 Room Air 11/25/17 03:36 37.0 85 18 132/80 (97) 95 Room Air Review Cardiovascular: + systolic murmur, + irregularly irregular Lungs: lungs clear Pre-Sedation Airway Assessment Smoking Status: Former Smoker Hx of Sleep Apnea: No Short Thick Neck: No Thyro-mental Distance: > 3 Finger Breadths Oral Cavity: Chipped Teeth, Dentures Mallampati Classification: Class II ASA Classification: Class II NPO Status Date of Last Intake of Fluids: November 24, 2017 Time of Last Intake of Fluids: 2358 Date of Last Intake of Solids: November 24, 2017 Time of Last Intake of Solids: 2358 Procedure Planning Contraindications for Sedation: None Current Medications Reviewed: Yes Notes The planned sedation has been discussed with the patient. Informed Consent was obtained. I have identified the patient, determined the appropriateness of sedation and have assessed the patient immediately prior to the procedure. All medicine(s) and interventions are by my order.
--- NOTE | 2017-11-25 15:44 | Progress Note ---
Internal Med Progress Note Date of Service: November 25, 2017. Provider Documentation: SUBJECTIVE: The patient was seen and examined in the telemetry unit. He was admitted with the Fredy mo with rapid ventricular response and was very difficult to control the rate Darren remains around 100 today Does not have any complaints of shortness of breath, chest pain, palpitation 5/3 Denies any symptoms Will have STEVE today OBJECTIVE: Vital Signs-as noted below Exam: General-no apparent distress at rest Eyes-normal ENT-normal Neck-supple Lungs-clear to auscultate bilaterally Heart-irregular,2/6 ESM over precordium Abdomen-benign, soft, nontender, bowel sounds present Extremities-no edema Neuro-alert, awake and oriented 3 No focal neuro deficit Lab data as noted below. ASSESSMENT & PLAN: Atrial Fibrillation RVR: Severe Mitral Regurgitation Continue metoprolol for rate control IV Lopressor PRN Cardiac enzymes X 3: Negative ECHO::The rhythm is atrial fibrillation. * Ejection Fraction = 55-60%. * The left atrium is moderately dilated. * There is borderline prolapse of the anterior mitral valve leaflet. * There is moderate to severe mitral regurgitation. * There is mild tricuspid regurgitation. * The estimated systolic pulmonary arterial pressure is 50 mmHg. * Dilated inferior vena cava with reduced collapsability with sniff indicates an elevated right atrial pressure of 15 mmHg Appreciate cardiology input Received Digoxin for rate controp and now on BB STEVE today -await further recommendation Joree-zw-dofcmen decompensated systolic heart failure Secondary to atrial fibrillation with rapid ventricular response, valvular heart disease Received IV Lasix and will adjust further doses if needed Cardiology managing No acute issue Acute respiratory failure with Hypoxia CTA:No PE. Small b/l pleural effusions. Bibasilar atelectasis. Prominent pulmonary vasculature. Pulm HTN could be contributing Oxygen as neded Appreciate Pulmonology Input Continue diuresis with IV Lasix Needs sleep study as outpatient HTN continue lisinopril, metoprolol Remains stable HLD Continue Crestor DM II A1C: 7.2 Hold home oral agents Continue SSI, Lantus Monitor BGs H/O Prostate Cancer S/P Radiation Continue Hytrin Allergic Rhinitis: Continue Singulair DVT Px On Coumadin -on hold now for the procedure 11/23/17 INR 1.5 on 11/24 Coumadin restarted on 11/24/17 Disposition: Monitor in Telemetry Awaited Vital Signs: Date Time Temp Pulse Resp B/P (MAP) Pulse Ox O2 Delivery O2 Flow Rate FiO2 11/25/17 15:27 86 24 111/77 (88) 92 Room Air 11/25/17 15:16 92 22 96/63 (74) 94 Room Air 11/25/17 15:05 97 18 96/63 (74) 93 Nasal Cannula 4 11/25/17 14:55 102 20 89/60 (70) 93 Nasal Cannula 4 11/25/17 14:45 98 20 94/65 (75) 93 Nasal Cannula 4 11/25/17 14:35 101 23 100/56 (71) 94 Nasal Cannula 4 11/25/17 14:33 Nasal Cannula 4 11/25/17 14:30 97 23 107/63 93 Nasal Cannula 4 11/25/17 14:25 93 28 135/73 94 Nasal Cannula 4 11/25/17 14:21 Nasal Cannula 4 11/25/17 14:20 117 22 119/84 98 Nasal Cannula 4 11/25/17 14:17 101 16 127/84 96 Nasal Cannula 2 11/25/17 13:46 96 16 133/83 (100) 99 Room Air 11/25/17 12:00 Room Air 11/25/17 11:22 36.6 76 18 129/83 (98) 94 Room Air 11/25/17 08:00 Room Air 11/25/17 07:02 36.5 79 18 127/90 (102) 94 Room Air 11/25/17 04:00 96 Room Air 11/25/17 03:36 37.0 85 18 132/80 (97) 95 Room Air 11/25/17 00:00 96 Room Air 11/24/17 23:45 36.6 85 15 108/64 (79) 95 Room Air 11/24/17 20:36 36.7 76 18 147/81 (103) 92 Room Air 11/24/17 20:00 96 Room Air 11/24/17 18:49 103 18 110/64 (79) 94 Room Air 11/24/17 17:49 79 18 119/72 (88) 96 Room Air 11/24/17 17:28 84 11/24/17 16:49 72 17 131/80 (97) 96 Room Air 11/24/17 16:00 95 Room Air 11/24/17 15:49 84 17 123/98 (106) 95 Room Air Lab Results: Results Past 24 Hours Test 11/24/17 16:34 11/24/17 20:16 11/25/17 05:10 11/25/17 07:07 Range/Units Bedside Glucose 232 234 135 70-99 mg/dl Prothrombin Time 13.8 9.0-12.0 SECONDS Prothromb Time International Ratio 1.3 0.9-1.1 Sodium Level 142 136-145 mmol/L Potassium Level 3.9 3.5-5.1 mmol/L Chloride Level 109 98-107 mmol/L Carbon Dioxide Level 27 21-32 mmol/L Anion Gap 5.0 3-11 mmol/L Blood Urea Nitrogen 26 7-18 mg/dl Creatinine 1.12 0.60-1.40 mg/dl Est Creatinine Clear Calc Drug Dose 50.3 ml/min Estimated GFR () 72.0 Estimated GFR (Non- 62.1 BUN/Creatinine Ratio 23.6 10-20 Random Glucose 131 70-99 mg/dl Calcium Level 9.0 8.5-10.1 mg/dl
[2017-11-25] MEDS: DIGOXIN 0.125 MG TAB PO SCH (17:24)
[2017-11-25] MEDS: WARFARIN SOD 2.5 MG TAB PO SCH (17:25)
[2017-11-25] MEDS ORDERED: FUROSEMIDE 40 MG TAB PO ONE (17:30)
--- NOTE | 2017-11-25 17:39 | PROGRESS NOTE ---
DATE: 11/25/2017 Cardiology consultation. Patient seen and examined. Chart, medications, telemetry reviewed. Note dictated after patient undergone transesophageal echocardiogram earlier. SUBJECTIVE: Patient notes improvement in respiratory status, though he becomes hypoxic quickly with minimal activity. Denies any chest pain, dizziness, lightheadedness or syncope. Heart rates have come under better control running between 80 and 90 at rest. Denies any fevers, chills or chest pains. PHYSICAL EXAMINATION: VITAL SIGNS: Heart rate is 88, blood pressure is 125/68. HEENT: Normocephalic and atraumatic. NECK: Thick. There is no distinct jugular venous distention. LUNGS: Notable for diminished breath sounds at the bases, but are predominantly clear. CARDIOVASCULAR: Irregularly irregular. Grade 2-3/6 holosystolic murmur at the apex. There is no diastolic murmur. ABDOMEN: Soft, nontender. EXTREMITIES: Without cyanosis or clubbing. There is no peripheral edema. LABORATORY DATA: Earlier today, sodium is 142, potassium is 3.9, chloride is 109, bicarbonate is 26, creatinine is 1.1. Transesophageal echocardiogram preliminary review demonstrates preserved LV systolic function. There was a partially flail posterior mitral valve leaflet with severe mitral insufficiency with eccentrically directed jet. Tricuspid valve regurgitant velocities are within normal limits. IMPRESSION: 1. A 77-year-old male admitted with decompensated congestive heart failure secondary to atrial fibrillation with rapid ventricular response and valvular heart disease. Issues are as follows: Atrial fibrillation with rapid ventricular response, the rates now controlled. Patient being reinstituting anticoagulation with warfarin. 2. Congestive heart failure likely secondary to rate as well as partially flail posterior mitral valve leaflet and severe mitral insufficiency. Evaluations included diagnostic cardiac catheterization without obstructive disease with long 50% proximal left anterior descending lesion, right heart pressures now only minimally elevated, had normal left end diastolic pressures. 3. A partially flail, mitral valve leaflet with severe mitral insufficiency by transesophageal echocardiography. PLAN: Resume oral Lasix. Chest x-ray in a.m. Discussed with patient possible consideration for referral for mitral valve replacement versus repair and clinical timing of such.
[2017-11-25] MEDS: MONTELUKAST SOD 5 MG CHEWABLE TAB PO SCH (21:09)
[2017-11-25] MEDS: ROSUVASTATIN CALCIUM 20 MG TAB PO SCH (21:09)
[2017-11-26 03:12] VITALS: BP 120/78; PULSE 72; TEMP 37.2; O2SAT 96
[2017-11-26 06:06] LABS: INR 1.4 (0.9-1.1)
[2017-11-26 07:07] VITALS: BP 123/75; PULSE 96; TEMP 37; O2SAT 97
[2017-11-26] MEDS: METOPROLOL SUCC 50MG EXT REL TAB PO SCH ×2 (07:34→16:13)
[2017-11-26] MEDS: GABAPENTIN 300 MG CAP PO SCH ×3 (07:34→21:17)
[2017-11-26] MEDS: LISINOPRIL 10 MG TAB PO SCH (07:34)
[2017-11-26] MEDS: ASPIRIN 81 MG ECTAB PO SCH (07:34)
[2017-11-26] MEDS: INSULIN ASPART 100 UNITS/ML 3 ML PEN SC SCH ×4 (07:43→21:23)
[2017-11-26] MEDS: INSULIN GLARGINE SOLOSTAR 100 UNITS/ML 3 ML PEN SC SCH ×2 (07:44→21:23)
--- NOTE | 2017-11-26 08:37 | DIAGNOSTIC IMAGING REPORT ---
CHEST 2 VIEWS ROUTINE CLINICAL HISTORY: chf dyspnea COMPARISON STUDY: 11/18/2017 FINDINGS: Improving components of congestive heart failure. Mild decrease in cardiac size. Pulmonary vasculature is diminished. IMPRESSION: Improving congestive heart failure The above report was generated using voice recognition software. It may contain grammatical, syntax or spelling errors. Electronically signed by: Christopher Pimentel M.D. 11/26/2017 8:35 AM Dictated Date/Time: 11/26/2017 8:30 AM
[2017-11-26] MEDS: FUROSEMIDE 40 MG TAB PO SCH ×2 (09:01→16:13)
[2017-11-26 10:01] LABS: CREATININE 1.12 mg/dl (0.60-1.40); POTASSIUM 3.8 mmol/L (3.5-5.1)
[2017-11-26 12:00] VITALS: BP 129/93; PULSE 80; TEMP 36.9; O2SAT 98
--- NOTE | 2017-11-26 13:36 | Progress Note ---
Internal Med Progress Note Date of Service: November 26, 2017. Provider Documentation: SUBJECTIVE: The patient was seen and examined in the telemetry unit. He was admitted with the Fredy mo with rapid ventricular response and was very difficult to control the rate Darren remains around 100 today Does not have any complaints of shortness of breath, chest pain, palpitation 5/3 Denies any symptoms Will have STEVE today 11/26: has ahd some SOB last night Received Lasix Much better this morning OBJECTIVE: Vital Signs-as noted below Exam: General-no apparent distress at rest Eyes-normal ENT-normal Neck-supple Lungs-clear to auscultate bilaterally Heart-irregular,2/6 ESM over precordium Abdomen-benign, soft, nontender, bowel sounds present Extremities-no edema Neuro-alert, awake and oriented 3 No focal neuro deficit Lab data as noted below. ASSESSMENT & PLAN: Atrial Fibrillation RVR: Severe Mitral Regurgitation Continue metoprolol for rate control IV Lopressor PRN Cardiac enzymes X 3: Negative ECHO::The rhythm is atrial fibrillation. * Ejection Fraction = 55-60%. * The left atrium is moderately dilated. * There is borderline prolapse of the anterior mitral valve leaflet. * There is moderate to severe mitral regurgitation. * There is mild tricuspid regurgitation. * The estimated systolic pulmonary arterial pressure is 50 mmHg. * Dilated inferior vena cava with reduced collapsability with sniff indicates an elevated right atrial pressure of 15 mmHg Appreciate cardiology input Received Digoxin for rate controp and now on BB STEVE today -await further recommendation Will need surgery for the Mitral Valve Reasonably stable now Likely discharge tomorrow OP appointment with cardiac surgeon-arranged by the [employer] [id number] decompensated systolic heart failure Secondary to atrial fibrillation with rapid ventricular response, valvular heart disease Received IV Lasix and will adjust further doses if needed Cardiology managing No acute issue CXR-clearing of CHF Continue Oral Lasix BID Acute respiratory failure with Hypoxia CTA:No PE. Small b/l pleural effusions. Bibasilar atelectasis. Prominent pulmonary vasculature. Pulm HTN could be contributing Oxygen as neded Appreciate Pulmonology Input Continue diuresis with IV Lasix Needs sleep study as outpatient HTN continue lisinopril, metoprolol Remains stable HLD Continue Crestor DM II A1C: 7.2 Hold home oral agents Continue SSI, Lantus Monitor BGs H/O Prostate Cancer S/P Radiation Continue Hytrin Allergic Rhinitis: Continue Singulair DVT Px On Coumadin -on hold now for the procedure 11/23/17 INR 1.5 on 11/24 Coumadin restarted on 11/24/17 INR 1.4 today ,will give 5 mg of Coumadin today Check INR in AM Disposition: Monitor in Telemetry Awaited Vital Signs: Date Time Temp Pulse Resp B/P (MAP) Pulse Ox O2 Delivery O2 Flow Rate FiO2 11/26/17 12:00 Nasal Cannula 2.0 11/26/17 12:00 36.9 80 20 129/93 (105) 98 Nasal Cannula 2.0 11/26/17 08:00 Nasal Cannula 2.0 11/26/17 07:07 37.0 96 16 123/75 (91) 97 Nasal Cannula 2.0 11/26/17 04:00 Room Air 11/26/17 03:12 37.2 72 16 120/78 (92) 96 Nasal Cannula 2.0 11/26/17 00:00 Room Air 11/25/17 23:32 37.1 76 18 138/89 (105) 98 2.0 11/25/17 20:32 36.5 84 20 141/74 (96) 98 Nasal Cannula 2.0 11/25/17 20:00 Room Air 11/25/17 17:24 77 11/25/17 16:32 79 129/91 (104) 11/25/17 16:03 36.7 76 20 131/91 (104) 97 Room Air 11/25/17 15:46 Room Air 11/25/17 15:43 85 20 125/77 (93) 94 Room Air 11/25/17 15:27 86 24 111/77 (88) 92 Room Air 11/25/17 15:16 92 22 96/63 (74) 94 Room Air 11/25/17 15:05 97 18 96/63 (74) 93 Nasal Cannula 4 11/25/17 14:55 102 20 89/60 (70) 93 Nasal Cannula 4 11/25/17 14:45 98 20 94/65 (75) 93 Nasal Cannula 4 11/25/17 14:35 101 23 100/56 (71) 94 Nasal Cannula 4 11/25/17 14:33 Nasal Cannula 4 11/25/17 14:30 97 23 107/63 93 Nasal Cannula 4 11/25/17 14:25 93 28 135/73 94 Nasal Cannula 4 11/25/17 14:21 Nasal Cannula 4 11/25/17 14:20 117 22 119/84 98 Nasal Cannula 4 11/25/17 14:17 101 16 127/84 96 Nasal Cannula 2 11/25/17 13:46 96 16 133/83 (100) 99 Room Air Lab Results: Results Past 24 Hours Test 11/25/17 16:34 11/25/17 20:35 11/26/17 05:27 11/26/17 07:11 Range/Units Bedside Glucose 131 183 119 70-99 mg/dl Prothrombin Time 14.5 9.0-12.0 SECONDS Prothromb Time International Ratio 1.4 0.9-1.1 Sodium Level 141 136-145 mmol/L Potassium Level 3.8 3.5-5.1 mmol/L Chloride Level 110 98-107 mmol/L Carbon Dioxide Level 24 21-32 mmol/L Anion Gap 7.0 3-11 mmol/L Blood Urea Nitrogen 27 7-18 mg/dl Creatinine 1.12 0.60-1.40 mg/dl Est Creatinine Clear Calc Drug Dose 50.2 ml/min Estimated GFR () 72.0 Estimated GFR (Non- 62.1 BUN/Creatinine Ratio 24.4 10-20 Random Glucose 106 70-99 mg/dl Calcium Level 9.0 8.5-10.1 mg/dl Test 11/26/17 11:17 Range/Units Bedside Glucose 198 70-99 mg/dl
[2017-11-26] MEDS ORDERED: NURSING VERBAL MED ORDER ONE (14:15)
--- NOTE | 2017-11-26 14:28 | PULMONARY PROGRESS NOTE ---
DATE: 11/26/2017 SUBJECTIVE: I discussed the patient's case and presentation with Dr. Fito Laguerre. The patient was last seen by Dr. Boo on 11/21/2017 and a sleep study was recommended because of the nighttime bradyarrhythmias and his atrial fibrillation. I reviewed serial chest x-rays and previous CAT scan of the chest. While there has been improvement, apparently the patient's respiratory status becomes hypoxic with minimal activity. Transesophageal echocardiogram showed preserved LV systolic function but a partially flail posterior mitral valve leaflet with severe mitral insufficiency with eccentrically directed jet. Even though the patient's most recent end-diastolic volume was approximately 8 mmHg, I do believe that the radiographic findings of interstitial edema and pleural effusions really reflect more delay in improvement in the patient's cardiopulmonary status and radiographic status than is reflected in the improvement in his end-diastolic volume. If indeed he does not continue to respond to medical therapy, then I suspect the patient will require referral for mitral valve replacement versus repair sooner than later.
[2017-11-26 15:58] VITALS: BP 114/87; PULSE 75; TEMP 36.7; O2SAT 98
[2017-11-26] MEDS: WARFARIN SOD 2.5 MG TAB PO SCH (16:12)
[2017-11-26] MEDS: DIGOXIN 0.125 MG TAB PO SCH (16:12)
--- NOTE | 2017-11-26 16:26 | PROGRESS NOTE ---
DATE: 11/26/2017 The patient seen and examined. Chart, medications, telemetry reviewed. SUBJECTIVE: The patient once again feels somewhat breathless with activities but is clinically stable. Notes no chest pains, tachypalpitations, dizziness. Tolerated procedures this week well, was tolerating increased dose of diuretics orally at 40 mg twice per day. OBJECTIVE: VITAL SIGNS: Heart rate is 80, blood pressure is 129/93. NECK: Thin. There is no jugular venous distention. No carotid bruits. LUNGS: Clear with mildly diminished breath sounds diffusely. CARDIOVASCULAR: Irregular irregular. Grade 3/6 systolic murmurs, no diastolic murmur. ABDOMEN: Soft. EXTREMITIES: Without cyanosis or clubbing. There is no peripheral edema. IMPRESSION: A 77-year-old male with issues as follows: 1. Partially flail posterior mitral valve leaflet with severe mitral insufficiency. 2. Acute decompensated diastolic/valvular heart failure secondary to atrial fibrillation with rapid ventricular response and mitral valve disease. 3. Atrial fibrillation with rapid ventricular response, past paroxysmal, now persistent with great control. RECOMMENDATIONS: Will continue current medications as prescribed. Arrangements have been made for outpatient followup with cardiovascular surgery in 1 week's time on 12/03/2017 at [facility] for consideration of mitral valve repair/replacement. Two step will be ordered to assess for oxygen needs in the interim.
[2017-11-26 19:24] VITALS: BP 138/97; PULSE 72; TEMP 36.6; O2SAT 96
[2017-11-26] MEDS: ROSUVASTATIN CALCIUM 20 MG TAB PO SCH (21:18)
[2017-11-26] MEDS: MONTELUKAST SOD 5 MG CHEWABLE TAB PO SCH (21:18)
[2017-11-26 23:35] VITALS: BP 131/87; PULSE 88; TEMP 36.6; O2SAT 96
--- NOTE | 2017-11-27 00:34 | CARDIAC CATH REPORT ---
Cardiac catheterization report. INDICATIONS: Refractory congestive heart failure, history of pulmonary hypertension, mitral insufficiency. PROCEDURE: Right and left heart catheterization, coronary and LV angiography. BRIEF HISTORY: Patient is a 77-year-old male with history of noted mitral valve prolapse and auda-jz-jfoehbaf mitral insufficiency who was hospitalized with acute pulmonary edema, congestive heart failure and atrial fibrillation with rapid ventricular response, had worsening dyspnea over several months' time. He is referred now for further assessment of mitral valve and underlying coronary arteries as well as LV function. He has had no signs of cardiogenic shock, myocardial infarction. He does carry class III history of congestive heart failure with recent exacerbation. ACCESS: Right femoral artery, right femoral vein. CATHETERS: 7-Bahamian venous sheath, 7-Bahamian Grenora-Huy catheter, 5-Bahamian arterial sheath, 5-Bahamian straight pigtail catheter, 5-Bahamian JL4, 5-Bahamian 3DRC. CONTRAST: Nonionic x134 mL. IV FLUIDS: 125 mL normal saline. SEDATION: Patient received anxiolytics only with diazepam 5 mg p.o. and Benadryl 25 mg p.o. prior to procedure. ADDITIONAL MEDICATIONS: Local infiltration access site was performed with 1% lidocaine. COMPLICATIONS: None. RADIATION EXPOSURE: 11 minutes fluoroscopy time, 649 milligrays. RESULTS: CORONARY ANGIOGRAPHY: Right dominant coronary anatomy was demonstrated. LEFT MAIN: Normal length and trifurcates to give rise to left anterior descending, ramus intermedius and left circumflex. There is moderate calcification of the left main and proximal left anterior descending, there is no obstruction in left main. LEFT ANTERIOR DESCENDING: Left anterior descending is of moderate caliber type 3 vessel, which rises to 3 small diagonal branches in its mid portion that courses beyond the apex. Within the left anterior descending, there is a long 50% stenosis in its proximal third with moderate calcification in the area. RAMUS INTERMEDIUS: A small caliber vessel and is free of disease. LEFT CIRCUMFLEX: Moderately large and consists of obtuse marginal and a single posterolateral branch. There are mild irregularities in the left circumflex distribution. RIGHT CORONARY ARTERY: The right coronary is a large dominant vessel that gives rise to a large right ventricular branch in its mid portion, a moderate sized PDA and 2 posterior ventricular branches at the AV groove. There are mild irregularities in the right coronary artery. LV ANGIOGRAPHY: Left ventricle was hyperdynamic, EF greater than 70%. There is 3+ or greater mitral insufficiency. HEMODYNAMICS: Initial right atrial pressure was 2 with a V wave of 4. RV pressure was 33/5, PA pressure was 52/36 with a mean of 43. Pulmonary capillary wedge pressure mean was 17 with a V wave of 24. Cardiac output was 3.4 liters per minute by thermodilution. Aortic root saturation was 91%, PA saturation was 55%, RA saturation was 58%. LV pressure was 136/6. Pulmonary capillary wedge pressure was 22 with simultaneous recording of LVEDP of 8 with a V wave to 26. There is no transaortic valve gradient on pullback to the aortic root. Final PA pressure on excellent measurements revealed a PA pressure mean of 30 with a PA 42/18. IMPRESSION 1. Severe mitral insufficiency grade 3+ or greater. 2. Akfj-up-naouggcc pulmonary hypertension with normal left end diastolic pressures. 3. Moderately calcified left main and left anterior descending with 50% proximal left anterior descending stenosis, mild luminal irregularities of all other vasculature. 4. Hyperdynamic left ventricular function. RECOMMENDATIONS: Patient will be referred for further regarding mitral valve with planned transesophageal echocardiogram. Continue oxygen supplementation and diuresis.
[2017-11-27 03:53] VITALS: BP 118/80; PULSE 83; TEMP 37.1; O2SAT 92
[2017-11-27 05:33] LABS: HEMATOCRIT 40.3 % (42-52); HEMOGLOBIN 13.3 g/dL (14.0-18.0); MEAN CELL VOLUME 98.3 fL (80-100); MEAN CORPUSCULAR HEMOGLOBIN 32.4 pg (25-34); MEAN PLATELET VOLUME 10.4 fL (7.4-10.4); PLATELET COUNT 245 K/uL (130-400); RED CELL DISTRIBUTION WIDTH CV 12.7 % (11.5-14.5); RED CELL DISTRIBUTION WIDTH SD 45.5 fL (36.4-46.3); WHITE BLOOD COUNT 7.89 K/uL (4.8-10.8)
[2017-11-27 05:43] LABS: INR 1.4 (0.9-1.1)
[2017-11-27 06:05] LABS: CALCIUM 9.1 mg/dl (8.5-10.1); CREATININE 1.21 mg/dl (0.60-1.40); POTASSIUM 3.5 mmol/L (3.5-5.1)
[2017-11-27 06:41] VITALS: BP 121/88; PULSE 88; TEMP 36.6; O2SAT 94
[2017-11-27] MEDS: LISINOPRIL 10 MG TAB PO SCH (08:11)
[2017-11-27] MEDS: METOPROLOL SUCC 50MG EXT REL TAB PO SCH (08:11)
[2017-11-27] MEDS: ASPIRIN 81 MG ECTAB PO SCH (08:11)
[2017-11-27] MEDS: FUROSEMIDE 40 MG TAB PO SCH (08:11)
[2017-11-27] MEDS: GABAPENTIN 300 MG CAP PO SCH (08:12)
[2017-11-27] MEDS: INSULIN GLARGINE SOLOSTAR 100 UNITS/ML 3 ML PEN SC SCH (08:13)
[2017-11-27] MEDS: INSULIN ASPART 100 UNITS/ML 3 ML PEN SC SCH (08:13)
[2017-11-27] MEDS ORDERED: METOPROLOL SUCC 25MG EXT REL TAB PO STA (10:00)
[2017-11-27] MEDS ORDERED: POTASSIUM CHLORIDE 10 MEQ TABCR PO STA (10:03)
--- NOTE | 2017-11-27 11:05 | PROGRESS NOTE ---
DATE: 11/27/2017 The patient seen and examined. Chart, medications, telemetry reviewed. SUBJECTIVE: The patient feels again improved today. Denies any chest pains, dizziness, lightheadedness, syncope or near syncope. He is tolerating current medical therapy as well. Heart rate does trend higher with ambulation, but generally controlled. Weight has been stable. OBJECTIVE: VITAL SIGNS: Heart rate is 84, blood pressure is 121/88. NECK: Thin. There is no jugular venous distention. No carotid bruits. LUNGS: Clear. CARDIOVASCULAR: Irregular, irregular. Grade 2-3/6 systolic murmur. There is no diastolic murmur. ABDOMEN: Soft, nontender. EXTREMITIES: Free of edema. IMPRESSION: 1. The patient admitted with acute decompensated diastolic/valvular heart failure secondary to flail mitral valve leaflet and severe mitral insufficiency. 2. Atrial fibrillation with rapid ventricular response, now controlled. RECOMMENDATIONS: The patient is stable for discharge with increased dose of Toprol-XL 75 a.m., 50 mg p.m., current dosing of digoxin 0.125 mg per day, chronic use of lisinopril and furosemide 40 mg twice per day. I will add potassium 10 mEq daily. Anticipated follow up with cardiovascular surgery as scheduled on 12/03/2017. CHF instructions are given.
--- NOTE | 2017-11-27 11:12 | Progress Note ---
Internal Med Progress Note Date of Service: November 27, 2017. Provider Documentation: SUBJECTIVE: The patient was seen and examined in the telemetry unit. He was admitted with the Fredy mo with rapid ventricular response and was very difficult to control the rate Darren remains around 100 today Does not have any complaints of shortness of breath, chest pain, palpitation 11/25 Denies any symptoms Will have STEVE today 11/26: has ahd some SOB last night Received Lasix Much better this morning 11/27 Remains stable Denies any symptoms Will go home today OBJECTIVE: Vital Signs-as noted below Exam: General-no apparent distress at rest Eyes-normal ENT-normal Neck-supple Lungs-clear to auscultate bilaterally Heart-irregular,2/6 ESM over precordium Abdomen-benign, soft, nontender, bowel sounds present Extremities-trace edema bilaterally Neuro-alert, awake and oriented 3 No focal neuro deficit Lab data as noted below. ASSESSMENT & PLAN: Atrial Fibrillation RVR: Severe Mitral Regurgitation Continue metoprolol for rate control IV Lopressor PRN Cardiac enzymes X 3: Negative ECHO::The rhythm is atrial fibrillation. * Ejection Fraction = 55-60%. * The left atrium is moderately dilated. * There is borderline prolapse of the anterior mitral valve leaflet. * There is moderate to severe mitral regurgitation. * There is mild tricuspid regurgitation. * The estimated systolic pulmonary arterial pressure is 50 mmHg. * Dilated inferior vena cava with reduced collapsability with sniff indicates an elevated right atrial pressure of 15 mmHg Appreciate cardiology input Received Digoxin for rate controp and now on BB STEVE today -await further recommendation Will need surgery for the Mitral Valve Reasonably stable now Likely discharge tomorrow OP appointment with cardiac surgeon-arranged by the [employer] BB dose adjusted ,Digoxin 125 mcg daily and Potassium daily [id number]-[id number] decompensated systolic heart failure Secondary to atrial fibrillation with rapid ventricular response, valvular heart disease Received IV Lasix and will adjust further doses if needed Cardiology managing No acute issue CXR-clearing of CHF Continue Oral Lasix BID and add K Acute respiratory failure with Hypoxia CTA:No PE. Small b/l pleural effusions. Bibasilar atelectasis. Prominent pulmonary vasculature. Pulm HTN could be contributing Oxygen as neded Appreciate Pulmonology Input Continue diuresis with IV Lasix Needs sleep study as outpatient HTN continue lisinopril, metoprolol Remains stable HLD Continue Crestor DM II A1C: 7.2 Hold home oral agents Continue SSI, Lantus Monitor BGs Continue oral med as an OP Januvia and Prandin have been discontinued as this can increase Cardiac symptoms may need to add Insulin as an OP H/O Prostate Cancer S/P Radiation Continue Hytrin Allergic Rhinitis: Continue Singulair DVT Px On Coumadin -on hold now for the procedure 11/23/17 INR 1.5 on 11/24 Coumadin restarted on 11/24/17 INR 1.4 today ,will give 5 mg of Coumadin today Check INR in AM-1.4 Coag clinic notified Disposition: Monitor in Telemetry Awaited Vital Signs: Date Time Temp Pulse Resp B/P (MAP) Pulse Ox O2 Delivery O2 Flow Rate FiO2 11/27/17 08:00 Nasal Cannula 2.0 11/27/17 06:41 36.6 88 18 121/88 (99) 94 Room Air 11/27/17 04:00 Room Air 11/27/17 03:53 37.1 83 17 118/80 (93) 92 Room Air 11/27/17 00:01 Room Air 11/26/17 23:35 36.6 88 20 131/87 (102) 96 Room Air 11/26/17 20:00 Room Air 11/26/17 19:24 36.6 72 20 138/97 (111) 96 Room Air 11/26/17 16:12 82 11/26/17 16:00 Nasal Cannula 2.0 11/26/17 15:58 36.7 75 20 114/87 (96) 98 Nasal Cannula 2.0 11/26/17 12:00 Nasal Cannula 2.0 11/26/17 12:00 36.9 80 20 129/93 (105) 98 Nasal Cannula 2.0 Lab Results: Results Past 24 Hours Test 11/26/17 16:29 11/26/17 20:44 11/27/17 05:02 11/27/17 07:12 Range/Units Bedside Glucose 163 185 166 70-99 mg/dl White Blood Count 7.89 4.8-10.8 K/uL Red Blood Count 4.10 4.7-6.1 M/uL Hemoglobin 13.3 14.0-18.0 g/dL Hematocrit 40.3 42-52 % Mean Corpuscular Volume 98.3 80-100 fL Mean Corpuscular Hemoglobin 32.4 25-34 pg Mean Corpuscular Hemoglobin Concent 33.0 32-36 g/dl RDW Standard Deviation 45.5 36.4-46.3 fL RDW Coefficient of Variation 12.7 11.5-14.5 % Platelet Count 245 130-400 K/uL Mean Platelet Volume 10.4 7.4-10.4 fL Prothrombin Time 14.7 9.0-12.0 SECONDS Prothromb Time International Ratio 1.4 0.9-1.1 Sodium Level 138 136-145 mmol/L Potassium Level 3.5 3.5-5.1 mmol/L Chloride Level 108 98-107 mmol/L Carbon Dioxide Level 25 21-32 mmol/L Anion Gap 5.0 3-11 mmol/L Blood Urea Nitrogen 32 7-18 mg/dl Creatinine 1.21 0.60-1.40 mg/dl Est Creatinine Clear Calc Drug Dose 46.5 ml/min Estimated GFR () 65.6 Estimated GFR (Non- 56.6 BUN/Creatinine Ratio 26.8 10-20 Random Glucose 141 70-99 mg/dl Calcium Level 9.1 8.5-10.1 mg/dl Magnesium Level 2.1 1.8-2.4 mg/dl
[2017-11-27] MEDS ORDERED: TPRSR25 PO (11:20)
[2017-11-27] MEDS ORDERED: POTA10CA28 PO (11:20)
[2017-11-27] MEDS ORDERED: NTRSLP4 SL (11:20)
[2017-11-27] MEDS ORDERED: LSN10 PO (11:20)
[2017-11-27] MEDS ORDERED: LNX125 PO (11:20)
[2017-11-27] MEDS ORDERED: TPRSR50 PO (11:20)
--- NOTE | 2017-11-27 11:26 | Discharge Instructions ---
Discharge Instructions Date of Service November 27, 2017. Admission Reason for Admission: A Fib W/Rapid Ventricular Response Discharge Discharge Diagnosis / Problem: Acute Decompensated Diastolic/Valvular heart disease,AF,Diabetes Type2 Discharge Goals Goal(s): Prevent Disease Progression Activity Recommendations Activity Limitations: resume your previous activity . Instructions / Follow-Up Instructions / Follow-Up Dr Constantino on 12/01/17 at 11:05 AM.Coagulation clinic notified.Please keep appointment with Cardiac Surgeon on Call your Primary Care doctor if any of the following symptoms or problems start or get worse: * Shortness of breath or difficulty breathing * Wake up at night short of breath * Chest pain * Cough * Swelling of your hands, feet, or legs * More fatigued or tired with your normal activity * Palpitations - sudden fast heart beats WEIGHT * Weigh yourself every morning after using the bathroom. * Use the same scale. * Wear the same amount of clothing. * Write your weight down on a chart. * Call your Primary Care doctor if you gain more than 2-3 pounds in 1-2 days. MEDICATIONS * Use this discharge instruction sheet for medication instructions. * Take your medications at the time your doctor ordered. * Do not skip a dose of your medicines. * If you miss a dose of medicine, take it as soon as possible, but DO NOT DOUBLE A DOSE. * Read your medicine information when you get home. * Know all of the side effects of your medicine. If in doubt, ask your pharmacist * Call your Primary Care doctor's office if you have any side effects. * Be sure all of your doctors know what medicine and herbs you take (including cold, flu, and herbal medicine). Take the following with you to your follow-up doctor appointments: * Weight Chart * Medication List * List of questions Do not drink excessive alcohol, beer or wine. Current Hospital Diet Patient's current hospital diet: AHA Diet (Heart Healthy), Diabetes Type 2 Diet Discharge Diet Recommended Diet: AHA Diet (Heart Healthy), Low Sodium Diet (2gm Na), Diabetes Type 2 Diet Fluid Restriction: 1500 ml (6 cups) Pending Studies Studies pending at discharge: no Laboratory Results Hemoglobin A1c Test 11/19/17 04:02 Range/Units Estimated Average Glucose 160 mg/dl Hemoglobin A1c 7.2 H 4.5-5.6 % Medical Emergencies . Who to Call and When: Call 911 or go to the Emergency Room if: * If at any time you feel your situation is an emergency * You have tightness or pain in your chest that does not go away with rest or Nitroglycerin * You are very short of breath even with rest . Non-Emergent Contact Non-Emergency issues call your: Primary Care Provider . Past History Medical & Surgical History: (1) CHF exacerbation (2) Valvular heart disease (3) Type 2 diabetes mellitus (4) Dyslipidemia (5) PAF (paroxysmal atrial fibrillation) (6) Prostate CA (7) Atrial fibrillation with rapid ventricular response (8) History of cardioversion (9) Hx of cataract surgery . "Provider Documentation" section prepared by José Randolph. .
[2017-11-27 11:30] VITALS: BP 124/82; PULSE 71; TEMP 36.4; O2SAT 97
[2017-11-27 11:35] VITALS: BP 121/88; PULSE 88; TEMP 36.6; O2SAT 94
--- NOTE | 2017-11-27 15:54 | Discharge Summary ---
Discharge Summary Date of Service November 27, 2017. Discharge Summary Admission Date: Nov 19, 2017 at 09:18 Discharge Date: November 27, 2017 Discharge Disposition: Home Principal Diagnosis: Acute Decompensated Diastolic/Valvular heart disease,AF,Diabetes Type2 Secondary Diagnoses/Problems: Please see H&P and Hospital progress note Consultations: Cardiology Medication Reconciliation New Medications: Digoxin (Digoxin) 0.125 Mg Tab 0.125 MG PO DAILY@16 for 30 Days, #30 TAB Lisinopril (Zestril) 10 Mg Tab 10 MG PO DAILY for 30 Days, #30 TAB Metoprolol Succinate (Metoprolol Succinate ER) 25 Mg Tabcr 75 MG PO DAILY for 30 Days, #90 TAB Metoprolol Succinate (Metoprolol Succinate ER) 50 Mg Tabcr 50 MG PO DAILY@1700 for 30 Days, #30 TAB Nitroglycerin (Nitrostat) 0.4 Mg/1 Tab Subl 0.4 MG SL UD PRN for Chest Pain for 30 Days, #25 TAB Potassium Chloride (Micro-K Ext Rel) 10 Meq Capcr 10 MEQ PO DAILY for 30 Days, #30 TAB Continued Medications: Acetaminophen Tab (Tylenol) 325 Mg Tab 650 MG PO Q6 PRN for Pain, TAB Albuterol Hfa (Ventolin Hfa) 200 Puffs/96258 Mcg Aers 2 PUFFS INH Q4H PRN for Shortness of Breath, #1 INHALER Aspirin (Aspirin Chewable) 81 Mg Chew 81 MG PO DAILY, TAB Clindamycin Phosphate (Topical (Cleocin-T) 1 % Lot 1 APPLN TOP BID for 30 Days, #60 ML 2 Refills Diclofenac Sodium (Topical) (Voltaren 1% Top Gel) 1 % Gel 1 APPLN TOP BID PRN for Pain Gabapentin (Neurontin) 300 Mg Cap 300 MG PO TID, CAP Ipratropium [place] (Nasal) (Ipratropium [place]) 0.03 % Spr 2 SPRAYS KLARISSA BID PRN for drainage Metformin HCl (Metformin HCl ER) 500 Mg Tabcr 500 MG PO DAILY Takes in evening with dinner Montelukast Sodium (Singulair Chewable) 5 Mg Chw 10 MG PO HS, TAB Rosuvastatin Calcium (Crestor) 40 Mg Tab 40 MG PO HS, TAB Terazosin (Hytrin) 5 Mg Cap 5 MG PO DAILY, CAP Tramadol (Ultram) 50 Mg Tab 50 MG PO TID PRN, TAB PRN PAIN Warfarin Sod (Coumadin) 2.5 Mg Tab 1.25 MG PO UD, TAB PATIENT TAKES , WED Warfarin Sod (Coumadin) 2.5 Mg Tab 2.5 MG PO UD, TAB MON, WED, THUR, FRI, SUN Discontinued Medications: Hydrochlorothiazide (Hydrochlorothiazide) 25 Mg Tab 25 MG PO 1-2 times per week Lisinopril (Zestril) 40 Mg Tab 40 MG PO DAILY, TAB Metoprolol Tartrate (Lopressor) (Lopressor) 25 Mg Tab 12.5 MG PO HS, TAB Repaglinide (Prandin) 2 Mg Tab 2 MG PO TIDM, TAB Sitagliptin Phosphate (Januvia) 100 Mg Tab 100 MG PO DAILY, TAB Admission Information HPI (per Admitting provider): Pt is 77 y/o M with PMH PAF s/p several cardioversion, on chronic Coumadin, HTN , HLD, prostate CA s/p radiation, DM II presented to ER with c/o palpitations and SOB. Patient states during the middle the night started with palpitations and increased shortness of breath. Patient reports chronic baseline shortness of breath however the past several days has noticed increased shortness of breath. Patient thinks last time was in A. fib was approximately 4 years ago. His amiodarone was discontinued in June 2017 secondary to his progressive shortness of breath, pulmonary function tests benign. In past patient had been on sotalol. Patient follows with Dr. Laguerre cardiology. Denies any recent illness or fevers. Patient reports chronic rhinorrhea and denies any increased symptoms. Denies fever/chills, diaphoresis, N/V/D/C, PINON, dizziness, syncope, vision changes, neck pain, CP, orthopnea, cough, sore throat, choking, otalgia, abdominal pain, paresthesias, weakness, extremity weakness, extremity edema, rashes, urinary symptoms, weight loss. History echo 02/2017: EF: 64%, grade 2 diastolic dysfunction, mild mitral valve prolapse with mild mitral regurgitation, pulmonary hypertension Past Medical/Surgical History Medical Problems: (1) Allergic rhinitis Status: Chronic (2) Back pain Status: Chronic (3) Dyslipidemia Status: Chronic (4) History of cardioversion Status: Resolved (5) Hypertension Status: Chronic (6) PAF (paroxysmal atrial fibrillation) Status: Chronic (7) Paroxysmal atrial fibrillation Status: Resolved (8) Prostate CA Permanent Comment: s/p radiation Status: Chronic (9) Type 2 diabetes mellitus Status: Chronic Surgical Problems: (1) Hx of cataract surgery Status: Resolved (2) Hx of tonsillectomy Status: Resolved (3) Hx of tonsillectomy Status: Resolved Family History Diabetes mellitus FHx: heart disease Hypertension Skin cancer Social History Smoking Status: Former Smoker Smokeless Tobacco Use: No Alcohol Use: 1 drink daily Drug Use: none Marital Status: Occupational Status: retired Immunizations History of Influenza Vaccine: N/A Influenza Vaccine Date: May 05, 2011 History of Tetanus Vaccine?: utd History of Pneumococcal: Yes History of Hepatitis B Vaccine: No Allergies Coded Allergies: Codeine (Verified Allergy, Mild, RASH, 07/19/16) CAUSES NAUSEA Dust Mite Extract (Verified Allergy, Mild, , 07/19/16) POLLEN (Verified Allergy, Mild, , 07/19/16) Home Medications Scheduled Aspirin (Aspirin Chewable), 81 MG PO DAILY Clindamycin Phosphate (Topical (Cleocin-T), 1 APPLN TOP BID Gabapentin (Neurontin), 300 MG PO TID Hydrochlorothiazide (Hydrochlorothiazide), 25 MG PO 1-2 times per week Lisinopril (Zestril), 40 MG PO DAILY Metformin HCl (Metformin HCl ER), 500 MG PO DAILY Metoprolol Tartrate (Lopressor) (Lopressor), 12.5 MG PO HS Montelukast Sodium (Singulair Chewable), 10 MG PO HS Repaglinide (Prandin), 2 MG PO TIDM Rosuvastatin Calcium (Crestor), 40 MG PO HS Sitagliptin Phosphate (Januvia), 100 MG PO DAILY Terazosin (Hytrin), 5 MG PO DAILY Tramadol (Ultram), 50 MG PO TID PRN Warfarin Sod (Coumadin), 1.25 MG PO UD Warfarin Sod (Coumadin), 2.5 MG PO UD Scheduled PRN Acetaminophen Tab (Tylenol), 650 MG PO Q6 PRN for Pain Albuterol Hfa (Ventolin Hfa), 2 PUFFS INH Q4H PRN for Shortness of Breath Diclofenac Sodium (Topical) (Voltaren 1% Top Gel), 1 APPLN TOP BID PRN for Pain Ipratropium [place] (Nasal) (Ipratropium [place]), 2 SPRAYS KLARISSA BID PRN for drainage Review of Systems See HPI for pertinent positives & negatives. All other systems reviewed and were otherwise negative Physical Exam H&P v2 Physical Exam Vital Signs Date Time Temp Pulse Resp B/P (MAP) Pulse Ox O2 Delivery O2 Flow Rate FiO2 11/18/17 09:09 119 11/18/17 08:30 86 30 92 Room Air 11/18/17 08:01 90/72 11/18/17 08:00 97 32 95 11/18/17 07:30 110 25 95 11/18/17 07:25 119 107/74 11/18/17 07:25 90 107/74 11/18/17 07:10 118 24 96 11/18/17 06:49 110/77 11/18/17 06:46 108 11/18/17 06:46 207/189 11/18/17 06:46 96 Room Air 11/18/17 06:39 36.6 124 28 110/77 96 Room Air General Appearance: WD/WN, no apparent distress Head: normocephalic, atraumatic Eyes: normal inspection, sclerae normal ENT: hearing grossly normal, pharynx normal, + pertinent finding (Mucous membranes moist) Neck: supple, no JVD, trachea midline Respiratory/Chest: lungs clear, normal breath sounds, no respiratory distress Cardiovascular: + systolic murmur, + irregularly irregular (Rate 90s) Abdomen/GI: normal bowel sounds, non tender, soft Extremities/Musculoskelatal: no calf tenderness, normal capillary refill, no pedal edema, non-tender Neurologic/Psych: alert, normal mood/affect, oriented x 3 Skin: normal color, warm/dry, + pertinent finding (Erythematous papules to nose ) Diagnostics H&P v2 Diagnostics Laboratory Results Results Past 24 Hours Test 11/18/17 06:46 11/18/17 06:50 Range/Units White Blood Count 6.95 4.8-10.8 K/uL Red Blood Count 3.96 4.7-6.1 M/uL Hemoglobin 13.0 14.0-18.0 g/dL Hematocrit 39.6 42-52 % Mean Corpuscular Volume 100.0 80-100 fL Mean Corpuscular Hemoglobin 32.8 25-34 pg Mean Corpuscular Hemoglobin Concent 32.8 32-36 g/dl Platelet Count 231 130-400 K/uL Mean Platelet Volume 10.6 7.4-10.4 fL Neutrophils (%) (Auto) 69.3 % Lymphocytes (%) (Auto) 18.0 % Monocytes (%) (Auto) 8.6 % Eosinophils (%) (Auto) 3.5 % Basophils (%) (Auto) 0.3 % Neutrophils # (Auto) 4.82 1.4-6.5 K/uL Lymphocytes # (Auto) 1.25 1.2-3.4 K/uL Monocytes # (Auto) 0.60 0.11-0.59 K/uL Eosinophils # (Auto) 0.24 0-0.5 K/uL Basophils # (Auto) 0.02 0-0.2 K/uL RDW Standard Deviation 48.3 36.4-46.3 fL RDW Coefficient of Variation 13.3 11.5-14.5 % Immature Granulocyte % (Auto) 0.3 % Immature Granulocyte # (Auto) 0.02 0.00-0.02 K/uL Prothrombin Time 18.3 9.0-12.0 SECONDS Prothromb Time International Ratio 1.8 0.9-1.1 Activated Partial Thromboplast Time 32.1 21.0-31.0 SECONDS Partial Thromboplastin Ratio 1.2 Sodium Level 139 136-145 mmol/L Potassium Level 4.2 3.5-5.1 mmol/L Chloride Level 110 98-107 mmol/L Carbon Dioxide Level 23 21-32 mmol/L Anion Gap 6.0 3-11 mmol/L Blood Urea Nitrogen 25 7-18 mg/dl Creatinine 1.32 0.60-1.40 mg/dl Est Creatinine Clear Calc Drug Dose 43.3 ml/min Estimated GFR () 59.0 Estimated GFR (Non- 50.9 BUN/Creatinine Ratio 19.1 10-20 Random Glucose 215 70-99 mg/dl Calcium Level 9.1 8.5-10.1 mg/dl Magnesium Level 1.9 1.8-2.4 mg/dl Total Bilirubin 0.5 0.2-1 mg/dl Direct Bilirubin 0.1 0-0.2 mg/dl Aspartate Amino Transf (AST/SGOT) 8 15-37 U/L Alanine Aminotransferase (ALT/SGPT) 16 12-78 U/L Alkaline Phosphatase 81 45-117 U/L Total Creatine Kinase 46 39-308 U/L Creatine Kinase MB 0.8 0.5-3.6 ng/ml Creatine Kinase MB Ratio 1.7 0-3.0 Troponin I < 0.015 0-0.045 ng/ml Total Protein 7.5 6.4-8.2 gm/dl Albumin 3.5 3.4-5.0 gm/dl Lipase 132 73-393 U/L Thyroid Stimulating Hormone (TSH) 2.010 0.300-4.500 uIu/ml Diagnostic Radiology CXR: IMPRESSION: Radiographic evidence of interstitial edema. Clinical and radiographic follow-up is recommended. EKG EKG: A. fib RVR, rate 102 Impression H&P v2 Impression Assessment and Plan ATRIAL FIBRILLATION RVR Patient with history of PAF on chronic Coumadin. History of several cardioversions in the past. Amiodarone was discontinued 06/2017. History of being on sotalol in the past. Patient reports increased SOB past 2 days and during the night started with palpitations, no CP. Patient given Cardizem 20 mg IV by EMS for pulse 130-160. In ER patient given Lopressor 5 mg IV and Lopressor 25 mg p.o. with rate down to 90s occasional 116 to 120 back down to 90s. BP 90/72, 96% on room air, respirations 24, afebrile. No leukocytosis. Initial troponin negative. TSH: 2. INR: 1.8 -Monitor Vitals -Repeat EKG in am -Will trend troponin -Echo -Continue Coumadin -INR in a.m -Lopressor 2.5mg IV Q6H prn HR>110 with holding parameters -Cardiology consult CHRONIC ANTICOAGULATION SECONDARY TO PAF INR: 1.8. -Continue Coumadin HTN After Cardizem and Lopressor current BP 90/72 -Resume lisinopril tomorrow a.m., continue metoprolol with holding parameters HLD -Continue Crestor DM II H A1c 6.5 and 07/2017. -Hold home oral agents -H A1c in a.m. -NovoLog sliding scale and Lantus per protocol HISTORY PROSTATE CA S/P RADIATION -Continue Hytrin ALLERGIC RHINITIS -Continue Singulair CHRONIC BACK PAIN -Continue tramadol as needed pain DVT Prophylaxis -coumadin Disposition admit tele Full Code as per discussion with pt Follows with Dr Constantino for routine care Pt was seen with Dr Lizama. See addendum Attending Note: Patient is a77 yr male with PMH of Afib on chronic anticoagulation presents with history of palpitations and worsening SOB. Previously on Sotolol and amiodarone. Follows with . Reports that his dorr operator recommended Cardiac Catheterization in the past for work up of Pulm HTN. States he has been using his albuterol inhaler more since last 2 days. Had PFTs in JUN 2017. Reports requiring albuterol secondary to chronic allergies. Denies chest pain, dizziness, fever, chills, diarrhea, dysuria. Received Cardizem En route to ED and Lopressor in ED. Physical Exam: Vitals signs as noted above General Appearance:Moderately built and nourished, no apparent distress Head: normocephalic, Atraumatic Eyes: normal inspection, EOMI, PERRL Neck: supple, Trachea midline Respiratory/Chest: Normal breath sounds, CTA Cardiovascular: Irregularly Irregular, + murmur Abdomen/GI:Soft, Non tender, Bowel sounds present Extremities/Musculoskelatal:normal inspection, 1+ b/l edema Neurologic/Psych:AAOX3, grossly no focal neurological deficits Skin:normal color,warm Assessment and Plan: Atrial Fibrillation RVR: TSH: normal CXR:The heart is mildly enlarged. There is elevation of the interstitium with septal edema Monitor electrolytes Continue metoprolol IV Lopressor PRN Continue Coumadin Monitor INR Cardiology consulted Trend Cardiac enzymes, Update ECHO I personally reviewed the record. Patient is interviewed and examined at bedside. Patient's care is coordinated with Diana Sawyer PA-C. Please refer to the documentation above for details of patient's presentation and for discussion of other issues. Resuscitation Status Full code VTE Prophylaxis Will order VTE Prophylaxis: Yes Additional Copies To Ron Constantino D.O. Physical Exam (per Admitting): General Appearance: WD/WN, no apparent distress Head: normocephalic, atraumatic Eyes: normal inspection, sclerae normal ENT: hearing grossly normal, pharynx normal, + pertinent finding (Mucous membranes moist) Neck: supple, no JVD, trachea midline Respiratory/Chest: lungs clear, normal breath sounds, no respiratory distress Cardiovascular: + systolic murmur, + irregularly irregular (Rate 90s) Abdomen/GI: normal bowel sounds, non tender, soft Extremities/Musculoskelatal: no calf tenderness, normal capillary refill, no pedal edema, non-tender Neurologic/Psych: alert, normal mood/affect, oriented x 3 Skin: normal color, warm/dry, + pertinent finding (Erythematous papules to nose) Hospital Course Atrial Fibrillation RVR: Severe Mitral Regurgitation Continue metoprolol for rate control IV Lopressor PRN Cardiac enzymes X 3: Negative ECHO::The rhythm is atrial fibrillation. * Ejection Fraction = 55-60%. * The left atrium is moderately dilated. * There is borderline prolapse of the anterior mitral valve leaflet. * There is moderate to severe mitral regurgitation. * There is mild tricuspid regurgitation. * The estimated systolic pulmonary arterial pressure is 50 mmHg. * Dilated inferior vena cava with reduced collapsability with sniff indicates an elevated right atrial pressure of 15 mmHg Appreciate cardiology input Received Digoxin for rate controp and now on BB STEVE today -await further recommendation Will need surgery for the Mitral Valve Reasonably stable now Likely discharge tomorrow OP appointment with cardiac surgeon-arranged by the Bearing Maker BB dose adjusted ,Digoxin 125 mcg daily and Potassium daily [id number] decompensated systolic heart failure Secondary to atrial fibrillation with rapid ventricular response, valvular heart disease Received IV Lasix and will adjust further doses if needed Cardiology managing No acute issue CXR-clearing of CHF Continue Oral Lasix BID and add K Acute respiratory failure with Hypoxia CTA:No PE. Small b/l pleural effusions. Bibasilar atelectasis. Prominent pulmonary vasculature. Pulm HTN could be contributing Oxygen as neded Appreciate Pulmonology Input Continue diuresis with IV Lasix Needs sleep study as outpatient HTN continue lisinopril, metoprolol Remains stable HLD Continue Crestor DM II A1C: 7.2 Hold home oral agents Continue SSI, Lantus Monitor BGs Continue oral med as an OP Januvia and Prandin have been discontinued as this can increase Cardiac symptoms may need to add Insulin as an OP H/O Prostate Cancer S/P Radiation Continue Hytrin Allergic Rhinitis: Continue Singulair DVT Px On Coumadin -on hold now for the procedure 11/23/17 INR 1.5 on 11/24 Coumadin restarted on 11/24/17 INR 1.4 today ,will give 5 mg of Coumadin today Check INR in AM-1.4 Coag clinic notified Disposition: Monitor in Telemetry Awaited Total time spent on discharge = 35 minutes This includes examination of the patient, discharge planning, medication reconciliation, and communication with other providers. Discharge Instructions Date of Service November 27, 2017. Admission Reason for Admission: A Fib W/Rapid Ventricular Response Discharge Discharge Diagnosis / Problem: Acute Decompensated Diastolic/Valvular heart disease,AF,Diabetes Type2 Discharge Goals Goal(s): Prevent Disease Progression Activity Recommendations Activity Limitations: resume your previous activity . Instructions / Follow-Up Instructions / Follow-Up Dr Constantino on 12/01/17 at 11:05 AM.Coagulation clinic notified.Please keep appointment with Cardiac Surgeon on Call your Primary Care doctor if any of the following symptoms or problems start or get worse: * Shortness of breath or difficulty breathing * Wake up at night short of breath * Chest pain * Cough * Swelling of your hands, feet, or legs * More fatigued or tired with your normal activity * Palpitations - sudden fast heart beats WEIGHT * Weigh yourself every morning after using the bathroom. * Use the same scale. * Wear the same amount of clothing. * Write your weight down on a chart. * Call your Primary Care doctor if you gain more than 2-3 pounds in 1-2 days. MEDICATIONS * Use this discharge instruction sheet for medication instructions. * Take your medications at the time your doctor ordered. * Do not skip a dose of your medicines. * If you miss a dose of medicine, take it as soon as possible, but DO NOT DOUBLE A DOSE. * Read your medicine information when you get home. * Know all of the side effects of your medicine. If in doubt, ask your pharmacist * Call your Primary Care doctor's office if you have any side effects. * Be sure all of your doctors know what medicine and herbs you take (including cold, flu, and herbal medicine). Take the following with you to your follow-up doctor appointments: * Weight Chart * Medication List * List of questions Do not drink excessive alcohol, beer or wine. Current Hospital Diet Patient's current hospital diet: AHA Diet (Heart Healthy), Diabetes Type 2 Diet Discharge Diet Recommended Diet: AHA Diet (Heart Healthy), Low Sodium Diet (2gm Na), Diabetes Type 2 Diet Fluid Restriction: 1500 ml (6 cups) Pending Studies Studies pending at discharge: no Laboratory Results Hemoglobin A1c Test 11/19/17 04:02 Range/Units Estimated Average Glucose 160 mg/dl Hemoglobin A1c 7.2 H 4.5-5.6 % Medical Emergencies . Who to Call and When: Call 911 or go to the Emergency Room if: * If at any time you feel your situation is an emergency * You have tightness or pain in your chest that does not go away with rest or Nitroglycerin * You are very short of breath even with rest . Non-Emergent Contact Non-Emergency issues call your: Primary Care Provider . Past History Medical & Surgical History: (1) CHF exacerbation (2) Valvular heart disease (3) Type 2 diabetes mellitus (4) Dyslipidemia (5) PAF (paroxysmal atrial fibrillation) (6) Prostate CA (7) Atrial fibrillation with rapid ventricular response (8) History of cardioversion (9) Hx of cataract surgery . "Provider Documentation" section prepared by José Randolph. . <Electronically signed by José Randolph M.D.> Signed: 11/27/17 [id number] Additional Copies To Ron Constantino D.O.
[2017-11-27] MEDS ORDERED: METOPROLOL SUCC 50MG EXT REL TAB PO SCH (17:00)
[2017-11-28] MEDS ORDERED: POTASSIUM CHLORIDE 10 MEQ TABCR PO SCH (09:00)
[2017-11-28] MEDS ORDERED: METOPROLOL SUCC 25MG EXT REL TAB PO SCH (09:00)
--- NOTE | 2017-11-29 08:37 | TEE ---
*NOTICE TO RECEIVING REPUBLICAN AGENCY This information is strictly Confidential and protected under [place] law. [place] law prohibits you from making any further disclosure of this information unless further disclosure is expressly permitted by the written consent of the person to whom it pertains or is authorized by law. A general authorization for the release of medical or other information is not sufficient for this purpose. Hospital accepts no responsibility if the information is made available to any other person, INCLUDING THE PATIENT. Interpretation Summary * Name: BELINDA HERNANDEZ Study Date: 11/25/2017 02:07 PM BP: 127/84 mmHg * Patient Location: .2E\S\E204\S\1 HR: 97 * : 1940 (M/d/yyyy) Gender: Male Height: 64 in * Age: 77 yrs Ethnicity: CA Weight: 170 lb * Ordering Physician: Fito Laguerre * Referring Physician: Self, Referred * Performed By: Jennifer Montenegro RCS * * Reason For Study: Valvular Dz * BSA: 1.8 m2 * -- Conclusions -- * The left ventricle is normal in size. * There is normal left ventricular wall thickness. * The left ventricular wall motion is normal. * Left ventricular systolic function is normal. * Ejection Fraction = 60-65%. * The mitral valve leaflets are mildly thickened. There is severe prolapse of the posterior mitral valve leaflet small torn chordae and partially flail segment P2/P3. Anterior mitral leaflet tip is moderately thickened with mild prolapse * There is severe mitral regurgitation. * The mitral regurgitant jet is anteriorly directed, which is consistent with posterior leaflet pathology. * There is trace tricuspid regurgitation. Procedure Details * STEVE Probe #1 utilized for procedure Procedure Start Time - 1417 Procedure Stop Time - 1433 * The study was performed in Cardiopulmonary Department. * Time out was conducted by the physician, nurse, and central sterile technician with positive identification of patient and procedure. * Informed consent for Transesophageal Echocardiogram was obtained prior to the procedure. * An intravenous line was placed. A topical anesthetic agent was used for oropharangeal anesthesia. A bite block was inserted. * The patient's vital signs, including blood pressure, heart rate, pulse oximetry and cardiac rhythm were monitored throughout the procedure . * Meperidine 25 mg administered for sedation. * Midazolam 4 mg administered for sedation. * A multifrequency, multiplane transesopheageal echocardiographic endoscope was inserted and manipulated in the standard fashion to achieve multiplane views. * The transesophageal probe was passed without difficulty. * Contrast injection with agitated saline was performed. * The patient tolerated the procedure well without evidence of orophangeal or esophageal trauma. * A 2D transesophageal echocardiogram was performed. * A 2D transesophageal echocardiogram with color flow Doppler was performed. * A 2D transesophageal echocardiogram with Doppler and color flow Doppler was performed. Left Ventricle * The left ventricle is normal in size. * There is normal left ventricular wall thickness. * Left ventricular systolic function is normal. * Ejection Fraction = 60-65%. * The left ventricular wall motion is normal. Right Ventricle * The right ventricle is normal in size and function. Atria * No thrombus is detected in the left atrial appendage. * The left atrium is moderately dilated. * Right atrial size is normal. Mitral Valve * The mitral valve leaflets are mildly thickened. There is severe prolapse of the posterior mitral valve leaflet small torn chordae and partially flail segment P2/P3. Anterior mitral leaflet tip is moderately thickened with mild prolapse * There is severe mitral regurgitation. * The mitral regurgitant jet is anteriorly directed, which is consistent with posterior leaflet pathology. Tricuspid Valve * The tricuspid valve anatomy is normal. * There is no tricuspid stenosis. * There is trace tricuspid regurgitation. * Doppler findings do not suggest pulmonary hypertension. Aortic Valve * The aortic valve is trileaflet. * No hemodynamically significant valvular aortic stenosis. * No aortic regurgitation is present. Pulmonic Valve * The pulmonic valve is not well seen, but is grossly normal. * Trace pulmonic valvular regurgitation. Great Vessels * The aortic root is normal size. * There is minimal plaque in the distal arch and descending thoracic aorta Pericardium * There is no pericardial effusion.
== END 2017-11-27 13:37 | disposition home or self-care (01) | DRG 286 ==
LOC: EDBD 06:40 → C.EDB 06:41 → C.2E 08:53 → ENRESERV 11:14 → OBSVTOIN 11-19 09:18
PROVIDERS: ADMIT Internal Medicine; ATTEND Internal Medicine
PROC: B2151ZZ Fluoroscopy of Left Heart using Low Osmolar Contrast (ICD-10-PCS; principal; 2017-11-26)
PROC: B2111ZZ Fluoroscopy of Multiple Coronary Arteries using Low Osmolar Contrast (ICD-10-PCS; principal; 2017-11-26)
PROC: 4A023N8 Measurement of Cardiac Sampling and Pressure, Bilateral, Percutaneous Approach (ICD-10-PCS; principal; 2017-11-26)
DX: I48.0 Paroxysmal atrial fibrillation (principal); I50.31 Acute diastolic (congestive) heart failure; J96.01 Acute respiratory failure with hypoxia; I34.0 Nonrheumatic mitral (valve) insufficiency; I27.20 Pulmonary hypertension, unspecified; E78.5 Hyperlipidemia, unspecified; I11.0 Hypertensive heart disease with heart failure; E11.9 Type 2 diabetes mellitus without complications; Z79.01 Long term (current) use of anticoagulants; Z88.5 Allergy status to narcotic agent; Z85.46 Personal history of malignant neoplasm of prostate; Z92.3 Personal history of irradiation; Z87.891 Personal history of nicotine dependence; Z79.82 Long term (current) use of aspirin; J30.9 Allergic rhinitis, unspecified; M54.9 Dorsalgia, unspecified; R79.89 Other specified abnormal findings of blood chemistry

== ENCOUNTER → 2017-12-03 | Outpatient (CLI) | payer OTHER ==
[~2017-12-03] MED LIST changes: -ACET-1256 PO; +ACET-1693 PO; -ALFU10TA2 PO; -AMIO200T4 PO; +ASPCH81X PO; +CLIN1LOT TOP; +CMD/25 PO; +DICL1GEL12 TOP; +GABA-113 PO; -GLC/500 PO; +GLCSR/500 PO; +IPRA0.03 NAE; -IPRA0.032 NAE; +LNX125 PO; +LSN10 PO; +MONT1CHW6 PO; +NTRSLP4 SL; +POTA10CA28 PO; +ROSU40TA PO; +TERA5CAP PO; +TPRSR25 PO; +TPRSR50 PO; +TRAM-10 PO; +VNTHFA/IN INH
== END | disposition home or self-care (01) ==
LOC: C.LAB 17:20
PROVIDERS: ATTEND Thoracic Surgery (Cardiothoracic Vascular Surgery)
DX: I48.0 Paroxysmal atrial fibrillation (principal); E11.9 Type 2 diabetes mellitus without complications; I10 Essential (primary) hypertension; E78.5 Hyperlipidemia, unspecified

== ENCOUNTER 2018-11-14 10:47 | Inpatient (IN) ==
--- NOTE | 2018-11-01 10:17 | PAT Medication Instructions ---
Medication Instructions Date of Service November 01, 2018 Home Medications acetaminophen 650 mg PO Q12H PRN amiodarone 100 mg PO QAM amoxicillin 4 tab PO DIRECTED aspirin [Aspirin Low Dose] 81 mg PO QDL clonidine HCl [Catapres] 0.1 mg PO TID diclofenac sodium 2 g TOPICAL BID NEEDED digoxin 125 mcg PO QDL gabapentin 300 mg PO BID canagliflozin [Invokana] 300 mg PO QAM ipratropium bromide 2 spray INTRANASAL BID PRN lovastatin 40 mg PO PM metoprolol succinate 50 mg PO QDL metronidazole 1 applic TOPICAL BID nitroglycerin [Nitrostat] 1 tab SUBLINGUAL DIRECTED repaglinide [Prandin] 2 mg PO TIDM sitagliptin [Januvia] 50 mg PO QDL terazosin 2 mg PO HS tramadol 50 mg PO QAM NEEDED warfarin 2.5 mg PO DAILY Continue as directed nitroglycerin [Nitrostat] 1 tab SUBLINGUAL DIRECTED amoxicillin 4 tab PO DIRECTED ASK your prescriber and surgeon warfarin 2.5 mg PO DAILY STOP taking 24 hours before surgery metronidazole 1 applic TOPICAL BID diclofenac sodium 2 g TOPICAL BID NEEDED DO NOT take the morning of surgery repaglinide [Prandin] 2 mg PO TIDM ipratropium bromide 2 spray INTRANASAL BID NEEDED canagliflozin [Invokana] 300 mg PO QAM Take morning of surgery With a small sip of water, OTHERWISE NOTHING TO EAT OR DRINK AFTER MIDNIGHT: acetaminophen 650 mg PO Q12H NEEDED tramadol 50 mg PO QAM NEEDED gabapentin 300 mg PO BID digoxin 125 mcg PO QDL metoprolol succinate 50 mg PO QDL clonidine HCl [Catapres] 0.1 mg PO TID amiodarone 100 mg PO QAM Take evening before surgery acetaminophen 650 mg PO Q12H NEEDED terazosin 2 mg PO HS sitagliptin [Januvia] 50 mg PO QDL repaglinide [Prandin] 2 mg PO TIDM ipratropium bromide 2 spray INTRANASAL BID NEEDED lovastatin 40 mg PO PM gabapentin 300 mg PO BID clonidine HCl [Catapres] 0.1 mg PO TID aspirin [Aspirin Low Dose] 81 mg PO QDL Other Notes If you have any questions please call us at [phone] or [phone] or [phone] or [phone]
--- NOTE | 2018-11-01 11:27 | Anesthesiology Consultation ---
Date of Service November 01, 2018 Assessment & Plan (1) Encounter for pre-operative examination: Chart Review Chart Review: Acceptable Risk for Surgery and Patient seen in Pre Admission Testing Consults Requested cardiac (Dr. Laguerre (11/01 @ 3:30)) Patient was seen by Cardiology on 11/01/18. Per note, "Stable Class 1 function capacity referred for preop assessment prior to planned back surgery. Patient has no contraindications to proceeding, no angina, no prior myocardial infarction, stable valvular disease no arrhythmias or congestive heart failure. Operative risk will be increased due to underlying morbidities, but clinically well managed." Dr. Real note recommends holding Warfarin based on recommendations of anticoagulation clinic. Would also recommend postop telemetry bed given paroxysmal atrial arrhythmias history. Teaching & Discussion Pre-Anesthesia Teaching/Discussion Notes: Instructed NPO after midnight before surgery, except medications with 15 cc of water. Medication instructions provided according to the PAT guidelines. History Surgery Operation Date: 11/14/18 09:50 Proposed Procedures p L3-L4, L4-L5, L5-S1 Laminectomy - Max Reed DO Height/Weight Height: 5 ft 5.5 in Weight: 73.7 kg Allergies Allergy/AdvReac Type Severity Reaction Status Date / Time pollen extracts Allergy [place] sneezing, Verified 10/25/18 12:24 Dust Mite Extract Allergy Mild Sneezing Uncoded 10/25/18 12:24 Medications Home Medications Medication Instructions Recorded Confirmed Last Taken acetaminophen 650 mg PO Q12H PRN 10/25/18 10/25/18 Unknown amiodarone 100 mg PO QAM 10/25/18 10/25/18 Unknown amoxicillin 4 tab PO DIRECTED 10/25/18 10/25/18 Unknown aspirin [Aspirin Low Dose] 81 mg PO QDL 10/25/18 10/25/18 Unknown clonidine HCl [Catapres] 0.1 mg PO TID 10/25/18 10/25/18 Unknown diclofenac sodium 2 g TOPICAL BID PRN 10/25/18 10/25/18 Unknown digoxin 125 mcg PO QDL 10/25/18 10/25/18 Unknown fluorouracil 1 applic TOPICAL DAILY 10/25/18 10/25/18 Unknown gabapentin 300 mg PO BID 10/25/18 10/25/18 Unknown ipratropium bromide 2 spray INTRANASAL BID PRN 10/25/18 10/25/18 Unknown lovastatin 40 mg PO PM 10/25/18 10/25/18 Unknown metoprolol succinate 50 mg PO QDL 10/25/18 10/25/18 Unknown metronidazole 1 applic TOPICAL BID 10/25/18 10/25/18 Unknown nitroglycerin [Nitrostat] 1 tab SUBLINGUAL DIRECTED 10/25/18 10/25/18 Unknown repaglinide [Prandin] 2 mg PO TIDM 10/25/18 10/25/18 Unknown sitagliptin [Januvia] 50 mg PO QDL 10/25/18 10/25/18 Unknown terazosin 2 mg PO HS 10/25/18 10/25/18 Unknown tramadol 50 mg PO QAM PRN 10/25/18 10/25/18 Unknown warfarin 2.5 mg PO DAILY 10/25/18 10/25/18 Unknown canagliflozin [Invokana] 300 mg PO QAM 11/01/18 11/01/18 Unknown Past Medical History Medical History Atrial fibrillation Cancer PROSTATE - WITH RADIATION Chronic back pain LUMBAR Diabetes mellitus, type 2 Environmental allergies Hearing deficit WEARS HEARING AIDS Hiatal hernia Hyperlipidemia Hypertension Rheumatoid arthritis Rosacea Severe mitral regurgitation Spinal stenosis Past Surgical History Surgical History History of cardiac cath 11/2017 - [facility] History of cataract surgery BOTH EYES History of tonsillectomy Hx of heart bypass surgery VESSEL X1, MITRAL VALVE REPLACEMENT, ABLATION - ALL DONE AT SAME SURGERY Hx of transesophageal echocardiography (STEVE) for monitoring Past Anesthesia History No Hx of Anesthesia Complications and No Family Hx of Anesthesia Complications History of PONV No Motion Sickness Screening History of Motion Sickness: No (Did in childhood) Social History Smoking Status: Former smoker Do You Dip or Chew Tobacco: No Smoking End Date: 1969 Hx Alcohol Use: Yes Alcohol type: hard liquor alcohol intake frequency: 0-2 drinks per day (1) Hx Substance Use: No Exercise / Class Metabolic Activity II 4-5 Yardwork/Stairs/Walk up hill (Walks daily, but they are shorter now because of his back pain. Able to climb FOS without SOB or CP. ) Review of Systems Patient denies chest pain, shortness of breath, dyspnea on exertion, reflux, cough, wheezing, palpitations. +Joint Pain (Back Pain , Thumbs, Shoulders) Physical Exam Vital Signs BP: 149/76 P: 53 R: 16 T: 98.0 SPO2: 97% on RA ENMT Mouth: + poor dentition Thyromental Distance: > or= 3.5 Finger Breadths (3.5) Mallampati Class: II +clear post nasal drip +upper and lower partial plates present Neck normal visual inspection and trachea midline; neck extension not limited Respiratory normal respiratory effort Auscultation: lungs clear to auscultation bilaterally Cardiovascular Rate/Rhythm: regular rate and regular rhythm Heart Sounds: no murmur Vessels: no carotid bruit Neurologic moves all extremities Psychiatric Orientation: alert and oriented x 3 Testing Electrocardiogram Date: 11/01/18 Findings: + SB @ (59) and + RBBB (Incomplete) When compared with EKG of 11/20/17, Sinus rhythm has replaced atrial fibrillation Nonspecific T wave abnormality, improved in inferior leads QT has shortened Chest X-Ray Date: 11/01/18 FINDINGS: Prior median sternotomy with cardiac valvular prosthesis. Additionally, there is suggestion of a left atrial exclusion device. No pneumothorax, pleural effusion, focal airspace consolidation or overt pulmonary edema. Eventration of the right hemidiaphragm. Degenerative changes of the shoulders and spine. IMPRESSION: No acute process. Echocardiogram Date: 11/25/17 EF: 60-65% LV Function: normal Valvular Disease: + MR (severe, with mitral regurgitant jet anteriorly directed, which is consistent with posterior leaflet pathology. ) The left ventricle is normal in size. There is normal left ventricular wall thickness. The left ventricular wall motion is normal. Left ventricular systolic function is normal. The mitral valve leaflets are mildly thickened. There is severe prolapse of the posterior mitral valve leaflet small torn chordae and partially flail segment P2/P3. Anterior mitral leaflet tip is moderately thickened with mild prolapse There is severe mitral regurgitation. The mitral regurgitant jet is anteriorly directed, which is consistent with posterior leaflet pathology. There is trace tricuspid regurgitation. Cardiac Catheterization Date: 11/27/17 Intervention: + none IMPRESSION 1. Severe mitral insufficiency grade 3+ or greater. 2. [id number] pulmonary hypertension with normal left end diastolic pressures. 3. Moderately calcified left main and left anterior descending with 50% proximal left anterior descending stenosis, mild luminal irregularities of all other vasculature. 4. Hyperdynamic left ventricular function. Cervical Spine Date: 11/01/18 FINDINGS: The cervical spine is visualized from C1 through the superior endplate of T1. There is no fracture. No subluxation. Moderate degenerative disc change C5-C6 Prevertebral soft tissues and the atlantodens interval are intact. No evidence for positional subluxation with the patient in flexion neutral and extended views. IMPRESSION: No fracture or subluxation within the cervical spine. No evidence for positional subluxation. Laboratory Results 11/01/18 12:07 11/01/18 12:07 PT 23.7 Seconds (9.0-12.0) H 11/01/18 12:07 INR 2.5 (0.9-1.1) H 11/01/18 12:07 APTT 39.0 Seconds (21.0-31.0) H 11/01/18 12:07 Hemoglobin A1c 8.0 % (4.5-5.6) H 11/01/18 12:07 Surgeon's office notified of elevated A1C.
--- NOTE | 2018-11-01 13:29 | XRay Report ---
XR chest Pre-admission PA/Lat HISTORY: 78 years-old Male pat preoperative exam. No acute chest complaints COMPARISON: Chest radiographs 11/26/2017 TECHNIQUE: PA and lateral views of the chest FINDINGS: Prior median sternotomy with cardiac valvular prosthesis. Additionally, there is suggestion of a left atrial exclusion device. No pneumothorax, pleural effusion, focal airspace consolidation or overt pu lmonary edema. Eventration of the right hemidiaphragm. Degenerative changes of the shoulders and spin e. IMPRESSION: No acute process. The above report was generated using voice recognition software. It may contain grammatical, syntax o r spelling errors. Electronically signed by: Donta Saleh M.D. 11/01/2018 1:27 PM
[2018-11-01 13:32] LABS: Basophils # (auto) 0.02 K/uL (0-0.2); Basophils % (auto) 0.3 %; Eosinophils # (auto) 0.24 K/uL (0-0.5); Eosinophils % (auto) 3.4 %; Hematocrit (blood only) 44.9 % (42-52); Hemoglobin 15.3 g/dL (14.0-18.0); Immature Granulocytes # (auto) 0.03 K/uL (0.00-0.02); Immature Granulocytes % (auto) 0.4 %; Lymphocytes % (auto) 21.3 %; Mean Corpuscular Hgb Conc 34.1 g/dL (32-36); Mean Corpuscular Volume 96.6 fL (80-100); Mean Platelet Volume 10.3 fL (7.4-10.4); Monocytes # (auto) 0.82 K/uL (0.11-0.59); Monocytes % (auto) 11.6 %; Neutrophils # (auto) 4.43 K/uL (1.4-6.5); Platelet Count 190 K/uL (130-400); RDW Coefficient of Variation 13.5 % (11.5-14.5); Red Blood Count 4.65 M/uL (4.7-6.1); White Blood Count 7.04 K/uL (4.8-10.8)
--- NOTE | 2018-11-01 13:33 | XRay Report ---
XR cervical spine 2 or 3V HISTORY: Preoperative evaluation PAT/RA COMPARISON: None. FINDINGS: The cervical spine is visualized from C1 through the superior endplate of T1. There is no f racture. No subluxation. Moderate degenerative disc change C5-C6 Prevertebral soft tissues and the a tlantodens interval are intact. No evidence for positional subluxation with the patient in flexion ne utral and extended views. IMPRESSION: No fracture or subluxation within the cervical spine. No evidence for positional subluxation. The above report was generated using voice recognition software. It may contain grammatical, syntax or spelling errors. Electronically signed by: Christopher Pimentel M.D. 11/01/2018 1:32 PM
[2018-11-01 13:41] LABS: INR 2.5 (0.9-1.1); Partial Thromboplastin Ratio 1.4; Prothrombin Time 23.7 Seconds (9.0-12.0)
[2018-11-01 13:52] LABS: Estimated Average Glucose 183 mg/dl
[2018-11-01 14:02] LABS: BUN Creatinine Ratio 23.2 (10-20); Calcium 9.2 mg/dl (8.5-10.1); Creatinine Clr Calc Pharmacy 45.8 ml/min; Est GFR (Non-African American) 60.4; Potassium 4.7 mmol/L (3.5-5.1)
--- NOTE | 2018-11-11 16:09 | History and Physical Report ---
DATE OF ADMISSION: 11/14/2018 CHIEF COMPLAINT: Back and lower extremity difficulty, paresthesias, neurogenic claudication and severe spinal stenosis. HISTORY OF PRESENT ILLNESS: He is 78 years of age with neurogenic claudication, vascular complication, lower extremity difficulties. PAST MEDICAL HISTORY: Diabetes, high cholesterol, hypertension, atrial fibrillation. PAST SURGICAL HISTORY: Tonsillectomy, arm carcinoma, skin removal for cancerous lesions. ALLERGIES: Negative. MEDICATIONS: Metformin, tramadol, metoprolol, gabapentin, lisinopril, Crestor, Hytrin, and Prandin. REVIEW OF SYSTEMS: He denies any blurred vision, double vision, tinnitus or vertigo. Denies fever, sweats, or chills. Admits to occasional heart beat changes. He does have atrial fibrillation. He has occasional shortness of breath, wheezing. He has frequent urination. He has numbness and tingling. He has easy bruisability. PHYSICAL EXAMINATION: GENERAL: He is 5 feet 5 inches, 175 pounds. In no terrible distress, sitting. He has difficulty when he ambulates. VITAL SIGNS: Blood pressure 130/80, pulse 80, respirations 16. HEENT: Pupils react to light and accommodation. Ear, nose, and throat clear. CARDIAC: Normal S1, S2, slight atrial fibrillation. No ectopy. LUNGS: Clear to auscultation. ABDOMEN: Soft, nontender. NEUROMUSCULAR: He has weakness with dorsiflexion. Cranial nerves are intact. Cervical nerve roots intact. He has no upper motor neuron pathology. He has slight loss of sensation. IMPRESSION: Delightful gentleman, stenosis of the spine along with diabetes, atrial fibrillation, hypertension, high cholesterol. PLAN: Lumbar spine laminectomy L3-S1.
[~2018-11-14 10:47] MED LIST changes: -ACET-1693 PO; -ASPCH81X PO; +CEFAZOLIN 2000MG 2,000 MG/15 ML SYR IV SCH; -CLIN1LOT TOP; -CMD/25 PO; -DICL1GEL12 TOP; -GABA-113 PO; -GLCSR/500 PO; -IPRA0.03 NAE; -LNX125 PO; +LR 15ML/HR IV SCH; +LR 60ML/HR IV SCH; -LSN10 PO; -MONT1CHW6 PO; -NTRSLP4 SL; -POTA10CA28 PO; -ROSU40TA PO; +SODIUM CHLORIDE 0.9% 1000ML IV SCH; -TERA5CAP PO; -TPRSR25 PO; -TPRSR50 PO; -TRAM-10 PO; -VNTHFA/IN INH
[2018-11-14 11:31] LABS: INR 2.1 (0.9-1.1); Partial Thromboplastin Ratio 1.3; Partial Thromboplastin Time 35.3 Seconds (21.0-31.0); Prothrombin Time 20.5 Seconds (9.0-12.0)
[2018-11-14] MEDS ORDERED: VANCOMYCIN HCL 1000MG/20ML VIAL ONE (11:48)
[2018-11-14] MEDS ORDERED: BACITRACIN INJ 50,000 UNIT VIAL ONE (11:49)
[2018-11-14] MEDS ORDERED: GELATIN SPONGE SZ 100 ONE (11:49)
[2018-11-14] MEDS ORDERED: THROMBIN FOR SOLN 20000 UNIT KIT ONE (11:49)
[2018-11-14] MEDS ORDERED: BUPIVACAINE/EPINEPHRINE 0.5% MPF 1:200,000 30 ML VIAL ONE (11:49)
[2018-11-14] MEDS ORDERED: PROPOFOL IV EMULSION 10 MG/ML 20 ML VIAL IV ONE (11:54)
[2018-11-14] MEDS ORDERED: fentaNYL citrate 100 MCG/2 ML VIAL ONE ×2 (11:54→12:54)
[2018-11-14] MEDS ORDERED: ROCURONIUM BROMIDE 10 MG/ML 5 ML VIAL ONE (11:54)
--- NOTE | 2018-11-14 12:10 | History & Physical Bridge Note ---
Date of Service November 14, 2018 History & Physical Bridge Note I have examined the patient, reviewed the History & Physical and in the interval since the performance of the History & Physical I have noted the following changes of clinical significance: no changes noted
[2018-11-14] MEDS ORDERED: ONDANSETRON INJ 2 MG/ML 2 ML VIAL ONE (13:29)
[2018-11-14] MEDS ORDERED: NEOSTIGMINE METHYLSULFATE 5 MG/5 ML SYR ONE (13:41)
[2018-11-14] MEDS ORDERED: GLYCOPYRROLATE 0.2 MG/ML VIAL ONE (13:41)
--- NOTE | 2018-11-14 14:00 | Post Operative Brief Note ---
Immediate Post Op Note v1 Date of Surgery November 14, 2018 Pre & Post Diagnosis Operation Date: 11/14/18 12:50 Pre-Op Diagnosis: Spinal Stenosis Post-Op Diagnosis: Spinal Stenosis Procedure Operation Date: 11/14/18 12:50 Actual Procedures p L3-L4, L4-L5, L5-S1 Laminectomy(Not Applicable) - Max Reed DO Surgeon Max Reed DO Tent Finisher milton Estimated Blood Loss 200 Findings Consistent with Post-Op Diagnosis Drains Hemovac Drain
[2018-11-14] MEDS ORDERED: ATROPINE SULFATE 0.1 MG/ML 10ML SYR IV PRN (14:26)
[2018-11-14] MEDS ORDERED: ePHEDrine sulfate 50 MG/ML AMP IV PRN (14:26)
[2018-11-14] MEDS: fentaNYL citrate 100 MCG/2 ML VIAL IV PRN ×5 (14:49→15:10)
--- NOTE | 2018-11-14 15:06 | Fluoroscopy Report ---
LUMBAR SPINE, INTRAOPERATIVE FLUOROSCOPY HISTORY: L3-S1 laminectomy. FLUOROSCOPY TIME: 1 second. FINDINGS: Intraoperative fluoroscopy was provided for the lumbar spine. Single fluoroscopic spot imag e of the lumbar spine demonstrates surgical instruments and retractors from the L3-S1 levels. IMPRESSION: Fluoroscopy provided for a L3-S1 laminectomy. Electronically signed by: Galindo Knapp M.D. 11/14/2018 3:05 PM
[2018-11-14] MEDS ORDERED: OXYCODONE HCL IR 5 MG TAB (IMMEDIATE RELEASE) PO PRN (15:45)
[2018-11-14] MEDS ORDERED: NITROGLYCERIN SL 0.4 MG/TAB TAB SL PRN (15:45)
[2018-11-14] MEDS ORDERED: ONDANSETRON INJ 2 MG/ML 2 ML VIAL IV PRN (15:45)
[2018-11-14] MEDS ORDERED: HYDROmorphone INJ 1 MG/ML SYRINGE IV PRN (15:45)
[2018-11-14] MEDS: ACETAMINOPHEN 1,000 MG/100 ML VIAL IV PRN (17:30)
[2018-11-14] MEDS: SODIUM CHLORIDE 0.9% 1000ML 1,000 ML IV SCH (17:31)
[2018-11-14] MEDS: REPAGLINIDE 1 MG TAB PO SCH (20:13)
[2018-11-14] MEDS: DOCUSATE SODIUM 100 MG CAP PO SCH (20:54)
[2018-11-14] MEDS: GABAPENTIN 300 MG CAP PO SCH (20:55)
[2018-11-14] MEDS: cloNIDine HCl 0.1 MG TAB PO SCH (20:56)
[2018-11-14] MEDS ORDERED: LOVASTATIN 20 MG TAB PO SCH (21:00)
[2018-11-14] MEDS ORDERED: TERAZOSIN HCL 1 MG CAP PO SCH (21:00)
[2018-11-14] MEDS: CEFAZOLIN 2000MG 2,000 MG/15 ML SYR IV SCH (21:07)
[2018-11-14] MEDS ORDERED: COUGH DROP (SUGAR FREE) LOZ 24 LOZ/1 BOX BUCCAL ONE (23:35)
[2018-11-15] MEDS: OXYCODONE HCL IR 5 MG TAB (IMMEDIATE RELEASE) PO PRN ×2 (00:13→21:48)
[2018-11-15] MEDS: CEFAZOLIN 2000MG 2,000 MG/15 ML SYR IV SCH ×2 (04:57→12:21)
[2018-11-15] MEDS: SODIUM CHLORIDE 0.9% 1000ML 1,000 ML IV SCH ×2 (04:57→16:54)
[2018-11-15] MEDS ORDERED: AMOXICILLIN 500 MG CAP PO PRN (06:00)
--- NOTE | 2018-11-15 07:56 | Operative Report ---
DATE OF OPERATION: 11/14/2018 PREOPERATIVE DIAGNOSIS: Spinal stenosis L3-L4, L4-L5, L5-S1 lumbar spine 3 level spinal stenosis. POSTOPERATIVE DIAGNOSIS: Spinal stenosis L3-L4, L4-L5, L5-S1 lumbar spine 3 level spinal stenosis. PROCEDURE: Include laminectomy, foraminotomy, partial facetectomy, decompression in the nerve structures, L3-L4, L4-L5, L5-S1. SURGEON: Max Reed DO ELECTRICAL WORKER: Angel Treadwell PA-C. COMPLICATIONS: No complications apparent. ESTIMATED BLOOD LOSS: 200. DESCRIPTION OF PROCEDURE: The patient was taken to the operating room, a general intubated anesthetic provided to the patient, scrubbed, prepped and draped sterile, made a skin incision, fascial incision, came right down on the lamina. Using various techniques, I decompressed the lamina midline. The partial facetectomy took out significant amount of ligamentum flavum, hypertrophy, each and every nerve root was decompressed and free of obstruction. We took a crosstable lateral radiograph verifying our positioning. I think we covered the area anatomically from L3 to the sacrum. We then irrigated thoroughly, closed fascia to fascia over a Hemovac drain and over vancomycin powder with #1 Vicryl suture, 2-0 subcuticular layer, 3-0 nylon on the skin. Sterile dressings applied. The patient returned to PACU stable. There were no apparent intraoperative complications. No implants used. Sponge and needle count correct. I attest to the content of the Intraoperative Record and any orders documented therein. Any exception s are noted below.
[2018-11-15] MEDS: REPAGLINIDE 1 MG TAB PO SCH ×2 (08:18→22:25)
[2018-11-15] MEDS: cloNIDine HCl 0.1 MG TAB PO SCH ×3 (08:19→20:18)
[2018-11-15] MEDS: DOCUSATE SODIUM 100 MG CAP PO SCH ×2 (08:19→21:48)
[2018-11-15] MEDS: AMIODARONE 200 MG TAB PO SCH (08:19)
[2018-11-15] MEDS: GABAPENTIN 300 MG CAP PO SCH ×2 (08:20→22:22)
[2018-11-15] MEDS: ACETAMINOPHEN 1,000 MG/100 ML VIAL IV PRN ×2 (08:23→14:23)
--- NOTE | 2018-11-15 08:30 | Anesthesiology Progress Note ---
Date of Service November 15, 2018 Anesthesia Post Procedure Vital Signs Vital Signs: Temp Pulse Pulse Pulse Resp BP BP 11/15/18 08:00 36.6 C 76 15 11/15/18 03:06 37.2 C 73 14 11/14/18 22:56 37.0 C 49 L 14 11/14/18 20:14 37 C 87 16 11/14/18 17:40 36.4 C L 47 L 16 11/14/18 16:43 43 L 16 11/14/18 16:15 43 L 15 11/14/18 15:44 36.5 C 44 L 16 132/59 L 11/14/18 15:31 42 L 10 L 131/60 11/14/18 15:30 45 L 11 L 11/14/18 15:25 45 L 13 128/68 11/14/18 15:21 47 L 13 130/72 11/14/18 15:20 46 L 15 11/14/18 15:16 46 L 13 133/70 11/14/18 15:15 44 L 9 L 11/14/18 15:11 45 L 13 108/72 11/14/18 15:10 44 L 12 11/14/18 15:06 43 L 18 118/62 11/14/18 15:05 44 L 21 11/14/18 15:00 44 L 15 123/66 11/14/18 14:58 44 L 20 11/14/18 14:57 44 L 12 121/60 11/14/18 14:55 48 L 12 11/14/18 14:50 48 L 19 112/70 11/14/18 14:45 48 L 16 126/66 11/14/18 14:40 50 L 13 108/59 L 11/14/18 14:36 36.5 C 51 L 51 L 13 109/59 L 11/14/18 14:35 52 L 13 109/59 L 11/14/18 14:31 51 L 11 L 11/14/18 14:30 52 L 9 L 120/61 11/14/18 14:26 53 L 16 11/14/18 14:25 53 L 10 L 116/63 11/14/18 14:21 53 L 12 11/14/18 14:20 54 L 15 111/62 11/14/18 14:16 54 L 12 11/14/18 14:15 55 L 14 122/71 04/22/19 14:11 55 L 20 95/48 L 11/14/18 14:10 55 L 18 11/14/18 14:08 36.4 C L 56 L 11 L 114/64 11/14/18 11:28 36.3 C L 47 L 18 153/73 H BP Pulse Ox 11/15/18 08:00 102/67 90 11/15/18 03:06 144/83 H 96 11/14/18 22:56 130/69 97 11/14/18 20:14 134/70 97 11/14/18 17:40 150/69 H 100 11/14/18 16:43 130/70 96 11/14/18 16:15 149/74 H 99 11/14/18 15:44 99 11/14/18 15:31 98 11/14/18 15:30 98 11/14/18 15:25 97 11/14/18 15:21 99 11/14/18 15:20 11/14/18 15:16 98 11/14/18 15:15 11/14/18 15:11 11/14/18 15:10 98 11/14/18 15:06 98 11/14/18 15:05 99 11/14/18 15:00 100 11/14/18 14:58 99 11/14/18 14:57 100 11/14/18 14:55 98 11/14/18 14:50 99 11/14/18 14:45 100 11/14/18 14:40 98 11/14/18 14:36 97 11/14/18 14:35 97 11/14/18 14:31 98 11/14/18 14:30 98 11/14/18 14:26 99 11/14/18 14:25 98 11/14/18 14:21 99 11/14/18 14:20 99 11/14/18 14:16 99 11/14/18 14:15 100 11/14/18 14:11 99 11/14/18 14:10 11/14/18 14:08 99 11/14/18 11:28 97 Pain Intensity Right Back: Pain Intensity: 6 Notes Mental Status: alert / awake / arousable Patient Amnestic to Procedure: Yes Nausea / Vomiting: adequately controlled Pain: improving with treatment Airway Patency, RR, SpO2: stable & adequate BP & HR: stable & adequate Hydration State: stable & adequate Anesthetic Complications: no major complications apparent
[2018-11-15] MEDS ORDERED: Nursing to Pharmacy Communication ONE (09:11)
[2018-11-15] MEDS ORDERED: SODIUM CHLORIDE 0.9% 500 ML IV ONE (10:00)
--- NOTE | 2018-11-15 10:13 | Hospitalist Consultation ---
Date of Consultation November 15, 2018 Assessment & Plan (1) Hypotension: Suspect related to hypovolemia but need to evaluate for alternate etiologies - Check stat labs - cbc, cmp, mag, troponin, digoxin level - Check EKG - personally reviewed and compared to prior, no acute changes. Repeat this afternoon - Ordered 500 cc IVF fluid bolus (NSS) - repeat BP after bolus 95/56. Continue IVF at 100 cc/hr - may need second bolus if not continuing to improve (2) Vision changes: Unclear etiology for vision changes although already resolving - may be related to hypoperfusion related to hypotension vs TIA vs medication toxicity - Check digoxin level although less likely based on clinical picture - Check stat CT head to r/o CVA - Continue to monitor (3) Hypertension: Pt currently hypotensive - see above plan - Added holds to clonidine until BP more stable - Continue Toprol for now (4) Type 2 diabetes mellitus: Labs reviewed - pt with evidence of FE (creatinine today 1.55, was 1.1 earlier this month) - HOLD oral diabetic medications for now - Start sliding scale insulin - Continue diabetic diet (5) PAF (paroxysmal atrial fibrillation): EKG today with sinus rhythm (p waves do appear to be present in V1) - may need to consider transfer to telemetry if not continuing to improve or if EKG changes on repeat EKG this afternoon, troponin was negative (6) H/O mitral valve replacement with cardiopulmonary bypass: (7) Dyslipidemia: - Continue home statin - clarified with patient that is taking Crestor now Patient seen and evaluated with collaborating physician, Dr. Randolph. Plan of care discussed and as outlined above. Pt will be followed starting tomorrow by Dr. Howell. A member of the [facility] Hospitalist team is available 15/02 at [phone]. Please don't hesitate to call with questions. Thank you for this consultation. Adi Neal PA-C Supervising Physician Co-Signing Physician Notes Attending addendum The patient was seen and examined in medical floor This is an 78 y/o male with a PMH of DM2, CKD3, HTN, severe MR s/p MVR, PAF, CAD s/p CABG x 1, and dyslipidemia who underwent L3-S1 laminectomy with decompression yesterday for whom we are now consulted urgently due to hypot ension and vision changes. He noted to have bright lights with zigzag-like pattern for about 20-30 minutes when he was having low blood pressure of systolic 80s He denies any other neurological symptoms and/or any cardiac symptoms Has been feeling a lot better without any symptoms during the examination and the blood pressure has been coming up to systolic 95 examination No apparent distress at rest Hemodynamically stable with systolic blood pressure at 95 Chest-clear to auscultate bilaterally Heart S1-S2, prosthetic valve sound-,, 2/6 systolic murmur over precordium Abdomen-benign Extremities-negative for any edema Urgent labs and EKGs and CAT scan of the head were done Notable changes noted in creatinine to be high at 1.[address] of the head and Doubt any significant neurological event and cardiac event has been ruled out Fluid bolus to maintain blood pressure and hold clonidine for now We will check EKG in the afternoon and monitor blood counts and BMP in the morning Agree with assessment and plan as outlined above by Zuleika Randolph History of Present Illness Reason for Consultation: Hypotension, vision changes Attending Physician: Max Reed DO History of Present Illness This is an 78 y/o male with a PMH of DM2, CKD3, HTN, severe MR s/p MVR, PAF, CAD s/p CABG x 1, and dyslipidemia who underwent L3-S1 laminectomy with decompression yesterday for whom we are now consulted urgently due to hypotension and vision changes. Patient does have a significant cardiac history. Of note, he was admitted in November 2017 with congestive heart failure, evaluation of which demonstrated severe mitral regurgitation for which patient underwent mitral valve replacement and single-vessel coronary bypass grafting with vein graft to the LAD. He was most recently seen by cardiology on 11/01/18 for pre-operative evaluation. At that time, patient was thought to be medically optimized with no anginal symptoms or congestive heart failure. Pt was instructed to take his usual medications post-operatively but was recommended to be on telemetry due to history of PAF. Pt is on chronic anticoagulation with warfarin which is managed by the anticoagulation clinic. Currently pt is seen sitting OOB in chair. His post-operative pain is well- controlled as long as he doesn't move around too much - he is comfortable at present. MAR reviewed - has not received IV narcotic since last evening, last dose of oxycodone was around midnight. He does note vision changes that started about an hour ago. He describes the brightness on the TV as being "very bright" and describes "blue jagged pieces" in his vision that are worse when he looks at anything bright. However, he reports these vision changes are already starting to improve. He denies any flashes of light, floaters or visual field cuts. Denies PINON, dizziness, chest pain, palpitations, sensation of skipped beats, dyspnea, numbness, tingling, focal weakness. Allergies Allergy/AdvReac Type Severity Reaction Status Date / Time pollen extracts Allergy [place] sneezing, Verified 10/25/18 12:24 Dust Mite Extract Allergy Mild Sneezing Uncoded 10/25/18 12:24 Home Medications Home Medications Medication Instructions Recorded Confirmed Type acetaminophen 650 mg PO Q12H PRN 10/25/18 11/14/18 History amiodarone 100 mg PO QAM 10/25/18 11/14/18 History amoxicillin 4 tab PO DIRECTED 10/25/18 11/14/18 History aspirin [Aspirin Low Dose] 81 mg PO QDL 10/25/18 11/14/18 History clonidine HCl [Catapres] 0.1 mg PO TID 10/25/18 11/14/18 History diclofenac sodium 2 g TOPICAL BID PRN 10/25/18 11/14/18 History digoxin 125 mcg PO QDL 10/25/18 11/14/18 History gabapentin 300 mg PO BID 10/25/18 11/14/18 History ipratropium bromide 2 spray INTRANASAL BID PRN 10/25/18 11/14/18 History lovastatin 40 mg PO PM 10/25/18 11/14/18 History metoprolol succinate 50 mg PO QDL 10/25/18 11/14/18 History metronidazole 1 applic TOPICAL BID 10/25/18 11/14/18 History nitroglycerin [Nitrostat] 1 tab SUBLINGUAL DIRECTED 10/25/18 11/14/18 History repaglinide [Prandin] 2 mg PO TIDM 10/25/18 11/14/18 History sitagliptin [Januvia] 50 mg PO QDL 10/25/18 11/14/18 History terazosin 2 mg PO HS 10/25/18 11/14/18 History tramadol 50 mg PO QAM PRN 10/25/18 11/14/18 History warfarin 2.5 mg PO DAILY 10/25/18 11/14/18 History canagliflozin [Invokana] 300 mg PO QAM 11/01/18 11/14/18 History Patient History Medical History Atrial fibrillation CAD (coronary artery disease) Cancer PROSTATE - WITH RADIATION Chronic back pain LUMBAR Diabetes mellitus, type 2 Environmental allergies Hearing deficit WEARS HEARING AIDS Hiatal hernia Hyperlipidemia Hypertension Rheumatoid arthritis Rosacea Spinal stenosis Severe mitral regurgitation Surgical History H/O mitral valve replacement with cardiopulmonary bypass History of cardiac cath 11/2017 - [facility] History of cataract surgery BOTH EYES History of tonsillectomy Hx of heart bypass surgery VESSEL X1, MITRAL VALVE REPLACEMENT, ABLATION - ALL DONE AT SAME SURGERY Hx of transesophageal echocardiography (STEVE) for monitoring Social History Preferred Language: Syriac Communication Ability: Effective Beliefs That Will Affect Care: None Current Living Situation: Family Other Information That Helps Us Care for You: No Feels Safe at Home: Yes Safety Concerns: Feels Safe At This Time Smoking Status: Former smoker Do You Dip or Chew Tobacco: No Smoking End Date: 1971 Hx Alcohol Use: Yes Alcohol type: hard liquor Hx Substance Use: No Review of Systems Review of Systems: All systems reviewed & are unremarkable except as noted in HPI & below Constitutional: no fever, no chills, no sweats and no weakness Eyes: as per Subjective / HPI Ear, Nose, Mouth, Throat: no nasal congestion and no dysphagia Respiratory: no cough, no chest congestion, no dyspnea and no wheezing Cardiovascular: no chest pain, no palpitations, no lightheadedness, no edema and no calf pain Gastrointestinal: no abdominal pain, no nausea and no vomiting +flatus with urge to defecate this morning Genitourinary: + difficulty urinating (mild post-operative difficulty) and + urinary hesitancy; no dysuria, no hematuria and no urinary urgency Musculoskeletal: + back pain; no swelling and no muscle weakness Integumentary: no rash and no skin ulcer Neurologic: no localized weakness, no tingling, no numbness, no seizure-like activity, no dizziness, no syncope, no headache(s) and no abnormal speech Endocrine: Diabetes - sugars at home around 160s-180s post-prandial per pt Physical Exam Constitutional: WD/WN, vitals as above no acute distress and no altered mental status Eyes: PERRL, conjunctivae normal, anicteric sclerae normal visual nicole by confrontation and EOM intact bilaterally ENMT: external ear and nose normal, oropharynx normal Neck: trachea midline Respiratory: no respiratory distress and no labored breathing Auscultation: lungs clear to auscultation bilaterally; no rales, no rhonchi and no wheezes Cardiovascular: Rate/Rhythm: regular rate and regular rhythm Heart Sounds: no gallop and no cardiac rub Vessels: dorsalis pedis pulses present; no JVD Extremities: normal capillary refill; no calf tenderness and no pedal edema Gastrointestinal (Abdomen): Inspection/Auscultation: normal bowel sounds; abdomen not distended Percussion/Palpation: abdomen soft; abdomen nontender Musculoskeletal: Head/Neck/Chest: normocephalic, head atraumatic and neck supple Extremities: no cyanosis and no clubbing Skin: no rashes, warm and dry Neurologic: PERRL, EOMI, accommodation nl, no face palsy, no dysarthria moves all extremities Speech / Cognition: normal speech Motor/Sensory: no tremor Cranial Nerves: tongue midline, able to rotate head bilaterally and no nystagmus Psychiatric: A+Ox3, euthymic affect Results & Data Vital Signs (Past 12 Hours) Vital Signs Temp Pulse Resp BP Pulse Ox 11/15/18 08:58 76 16 82/49 L 93 11/15/18 08:00 36.6 C 76 15 102/67 90 11/15/18 03:06 37.2 C 73 14 144/83 H 96 11/14/18 22:56 37.0 C 49 L 14 130/69 97 (1) Type 2 diabetes mellitus Chronic kidney disease stage: stage 3 (moderate) Diabetes mellitus complication detail: with chronic kidney disease Diabetes mellitus complication status: with kidney complications Diabetes mellitus usp insulin use: without usp use Qualified Code(s): E11.22 - Type 2 diabetes mellitus with diabetic chronic kidney disease; N18.3 - Chronic kidney disease, stage 3 (moderate) (2) Hypertension Hypertension type: unspecified Qualified Code(s): I10 - Essential (primary) hypertension (3) Hypotension Hypotension type: unspecified hypotension type Qualified Code(s): I95.9 - Hypotension, unspecified
[2018-11-15 10:21] LABS: Hematocrit (blood only) 34.8 % (42-52); Hemoglobin 11.6 g/dL (14.0-18.0); Mean Corpuscular Volume 96.9 fL (80-100); Mean Platelet Volume 9.7 fL (7.4-10.4); Platelet Count 159 K/uL (130-400); RDW Coefficient of Variation 13.5 % (11.5-14.5); RDW Standard Deviation 47.6 fL (36.4-46.3); Red Blood Count 3.59 M/uL (4.7-6.1)
[2018-11-15 10:29] LABS: INR 1.8 (0.9-1.1); Prothrombin Time 17.8 Seconds (9.0-12.0)
[2018-11-15 10:39] LABS: Alanine Aminotransferase 21 U/L (12-78); Albumin Level 2.8 gm/dl (3.4-5.0); Aspartate Aminotransferase 20 U/L (15-37); Blood Urea Nitrogen 23 mg/dl (7-18); Calcium 7.7 mg/dl (8.5-10.1); Carbon Dioxide 26 mmol/L (21-32); Chloride 103 mmol/L (98-107); Creatinine Clr Calc Pharmacy 33.7 ml/min; Est GFR (African American) 48.3; Est GFR (Non-African American) 41.7; Glucose 224 mg/dl (70-99); Magnesium 1.8 mg/dl (1.8-2.4); Potassium 4.1 mmol/L (3.5-5.1); Sodium 133 mmol/L (136-145)
[2018-11-15 10:44] LABS: Albumin Globulin Ratio 0.8 (0.9-2); Alkaline Phosphatase 73 U/L (45-117); Bilirubin,Total 0.6 mg/dl (0.2-1); Globulin 3.3 gm/dl (2.5-4.0); Total Protein 6.1 gm/dl (6.4-8.2); Troponin I < 0.015 ng/ml (0-0.045)
[2018-11-15 10:56] LABS: Basophils # (auto) 0.02 K/uL (0-0.2); Basophils % (auto) 0.1 %; Eosinophils # (auto) 0.01 K/uL (0-0.5); Eosinophils % (auto) 0.1 %; Immature Granulocytes # (auto) 0.03 K/uL (0.00-0.02); Immature Granulocytes % (auto) 0.2 %; Lymphocytes # (auto) 1.02 K/uL (1.2-3.4); Mean Corpuscular Hgb Conc 33.3 g/dL (32-36); Monocytes # (auto) 1.44 K/uL (0.11-0.59); Monocytes % (auto) 9.9 %; Neutrophils # (auto) 11.98 K/uL (1.4-6.5); Neutrophils % (auto) 82.7 %; RBC Morphology Unremarkable
[2018-11-15] MEDS ORDERED: DC ALL PREVIOUSLY ORDERED DIABETES MEDS ONE (11:13)
[2018-11-15] MEDS ORDERED: CARBOHYDRATES FOR HYPOGLYCEMIA PO PRN (11:13)
[2018-11-15] MEDS ORDERED: GLUCOSE 40% GEL 15 GM TUBE PO PRN (11:13)
[2018-11-15] MEDS ORDERED: DEXTROSE 50% 50 ML SYRINGE IV PRN (11:13)
[2018-11-15] MEDS ORDERED: GLUCAGON FOR INJ 1 MG VIAL SQ PRN (11:13)
[2018-11-15] MEDS ORDERED: GLUCOSE 10 TABS/TUBE PO PRN (11:13)
[2018-11-15] MEDS ORDERED: SITAGLIPTIN PHOSPHATE 25 MG TAB PO SCH (11:30)
--- NOTE | 2018-11-15 11:30 | CT Scan Report ---
CT head/brain wo con CLINICAL HISTORY: 78 years-old Male with hypotension, vision changes. Acute vision changes with hypo tension TECHNIQUE: Multiple axial CT images of the head were obtained without contrast. A dose lowering tech nique was utilized adhering to the principles of ALARA. CT DOSE: 537.48 mGy.cm COMPARISON: CT head 06/30/2010. FINDINGS: No acute intracranial hemorrhage, midline shift, intracranial mass, hydrocephalus, territorial ischem ia or abnormal extra-axial collection. Minimal hypodensities about the periventricular white matter s uggestive of chronic microvascular ischemic changes. Senescent calcifications of the lentiform nuclei . Ill-defined 8 mm hypodensity is noted about the anterior limb right internal capsule/right caudate head distribution on image 13 series 2, new from prior. The calvarium is intact. Prior bilateral cataract repair. The paranasal sinuses, mastoid air cells, a nd middle ear cavities are clear. IMPRESSION: 1. No acute intracranial hemorrhage, midline shift or territorial infarct. 2. Ill-defined 8 mm hypodensity about the anterior limb right internal capsule/right caudate head dis tribution is new from prior and suggests age-indeterminate infarction. Correlate clinically. The above report was generated using voice recognition software. It may contain grammatical, syntax o r spelling errors. Electronically signed by: Dnota Saleh M.D. 11/15/2018 11:28 AM
[2018-11-15] MEDS ORDERED: SODIUM CHLORIDE 0.9% 1000ML 500 ML IV ONE (11:57)
[2018-11-15] MEDS: ASPIRIN 81 MG ECTAB PO SCH (12:03)
[2018-11-15] MEDS: DIGOXIN 0.125 MG TAB PO SCH (12:03)
[2018-11-15] MEDS: METOPROLOL SUCC 50MG EXT REL TAB PO SCH (12:04)
[2018-11-15] MEDS: INSULIN ASPART 100 UNITS/ML 3 ML PEN SC SCH ×3 (12:39→20:17)
--- NOTE | 2018-11-15 13:19 | Hospitalist Progress Note ---
Date of Service November 15, 2018 Assessment & Plan (1) Hypotension: Persistent hypotension despite fluid bolus (500 cc) x 1 although had initial improvement - repeat fluid bolus and continue with IVF at 100 cc/hr - Transfer to telemetry for closer monitoring due to cardiac history, persistent low BP - Hold clonidine - Avoid narcotics if possible - Spoke with PREETI from primary service to update (2) Vision changes: Resolved - CT with age-indeterminate infarct but unclear if this is related to pt's symptoms - Consult neurology to determine if additional evaluation required at this time. Pt is on chronic anticoagulation with warfarin (3) PAF (paroxysmal atrial fibrillation): EKG this morning without atrial fibrillation - will recheck this afternoon - Monitor on telemetry - Consult cardiology due to persistent hypotension Adi Neal PA-C Supervising Physician Co-Signing Physician Notes Attending addendum: Patient was seen and evaluated, labs and imaging studies noted, acute assessment and plan as outlined above by Zuleika Randle PA-C. DR Rashmi green Subjective Called to see patient again after returned from CT. Persistent hypotension - BP with automatic cuff --> systolic BP in 70s. Recheck with manual --> systolic in low 80s. Ordered second fluid bolus of [address] head with attending - concern for age-indeterminate infarct (new from prior). Pt seen sitting OOB in chair eating lunch. Reports feeling well with resolution of vision changes. Denies chest pain, dyspnea, dizzinesss, nausea, vomiting. Physical Exam Constitutional: WD/WN, vitals as above no acute distress Results & Data Vital Signs (Past 12 Hours) Vital Signs Temp Pulse Pulse Resp BP Pulse Ox 11/15/18 12:03 58 L 11/15/18 11:55 82/50 L 11/15/18 11:47 59 L 16 78/45 L 97 11/15/18 10:39 64 16 95/56 L 96 11/15/18 08:58 76 16 82/49 L 93 11/15/18 08:00 36.6 C 76 15 102/67 90 11/15/18 03:06 37.2 C 73 14 144/83 H 96 (1) Hypotension Hypotension type: unspecified hypotension type Qualified Code(s): I95.9 - Hypotension, unspecified
--- NOTE | 2018-11-15 15:27 | Neurology Consultation ---
Date of Consultation November 15, 2018 Assessment & Plan (1) Vision changes: 1. hypotensive - likely hypoperfusion to posterior circulation 2. MRI brain - once stable 3. CTA head and neck - for vascular causes 4. may need abdominal CT to r/o retroperitoneal hemorrhage 5. monitor h/h 6. CTA head and neck - evaluate vessels and posterior circulation further recommendations once imaging completed Supervising Physician Co-Signing Physician Notes I have seen and discussed above patient with Dr Max Rowell, neurology I seen Mr. Schultz today, reviewed his chart, discussed his case with Jacqueline Hunter and Zuleika Martinez and examined him briefly Event this morning consisted of bilateral visual obscurations in the setting of documented hypotension with systolic blood pressures probably no greater than 80 and diastolics in the 40s he was sitting at the time of the event occurred symptoms have improved now recumbency in a gradual improvement in his overall blood pressure recordings but he still nowhere near what I considered to be his appropriately in the unit being monitored and will have cardiology see him as well. In the course of the evaluation he had a CAT scan showing an incidental right d eep basal ganglia probable lacunar infarction of indeterminate age but likely of several months duration and could be up to several years it has actually nothing to do with the symptoms he had this morning but unfortunately has prompted us to recommend an MRI and a CTA of the neck and head at some point in the future to analyze him for potential sources of emboli, intracranial disease and the remote possibility that the visual disturbances today that might have been reflective of more acute vascular event in the occipital cortex. These diagnostic studies can wait. He needs to have his blood pressure stabilized and brought back in the normal range Currently he has absolutely no symptoms or neurologic signs of concern is in sinus rhythm is adequately anticoagulated and we can do our diagnostic studies in the future we will reassess him tomorrow. My diagnosis is therefore hypotension induced by occipital ischemia transient type rather than a true embolic CVA or even an intrinsic intracranial vascular event Max Rowell MD History of Present Illness Reason for Consultation: age-indeterminate infarct, trans vision change Requesting Physician: Max Reed DO Attending Physician: Max Reed DO History of Present Illness Cale is a 78 year old male who has a PMH HTN, DM 2, HLD, PAR, prostrate CA, CHF , valvular heart disease who was admitted on 11/14/2018 for a laminectomy, foraminotomy, partial facetectomy, decompression in the nerve structures, L3-L4, L4-L5, L5-S1. Today he had an episode while sitting in bedside chair had an episode of bright vision and blue fuzzy vision with a blood pressure of 84/56. He states this lasted about 1/2 hour and resolved. His blood pressure is still low but he has not had any further episodes. He had a CT head which showed an old infarct. denies CP, SOB, abdominal pain, N, V, headache, current vision changes. Allergies Allergy/AdvReac Type Severity Reaction Status Date / Time pollen extracts Allergy MS sneezing, Verified 10/25/18 12:24 Dust Mite Extract Allergy Mild Sneezing Uncoded 10/25/18 12:24 Home Medications Home Medications Medication Instructions Recorded Confirmed Type acetaminophen 650 mg PO Q12H PRN 10/25/18 11/14/18 History amiodarone 100 mg PO QAM 10/25/18 11/14/18 History amoxicillin 4 tab PO DIRECTED 10/25/18 11/14/18 History aspirin [Aspirin Low Dose] 81 mg PO QDL 10/25/18 11/14/18 History clonidine HCl [Catapres] 0.1 mg PO TID 10/25/18 11/14/18 History diclofenac sodium 2 g TOPICAL BID PRN 10/25/18 11/14/18 History digoxin 125 mcg PO QDL 10/25/18 11/14/18 History gabapentin 300 mg PO BID 10/25/18 11/14/18 History ipratropium bromide 2 spray INTRANASAL BID PRN 10/25/18 11/14/18 History lovastatin 40 mg PO PM 10/25/18 11/14/18 History metoprolol succinate 50 mg PO QDL 10/25/18 11/14/18 History metronidazole 1 applic TOPICAL BID 10/25/18 11/14/18 History nitroglycerin [Nitrostat] 1 tab SUBLINGUAL DIRECTED 10/25/18 11/14/18 History repaglinide [Prandin] 2 mg PO TIDM 10/25/18 11/14/18 History sitagliptin [Januvia] 50 mg PO QDL 10/25/18 11/14/18 History terazosin 2 mg PO HS 10/25/18 11/14/18 History tramadol 50 mg PO QAM PRN 10/25/18 11/14/18 History warfarin 2.5 mg PO DAILY 10/25/18 11/14/18 History canagliflozin [Invokana] 300 mg PO QAM 11/01/18 11/14/18 History Patient History Medical History Atrial fibrillation CAD (coronary artery disease) Cancer PROSTATE - WITH RADIATION Chronic back pain LUMBAR Diabetes mellitus, type 2 Environmental allergies Hearing deficit WEARS HEARING AIDS Hiatal hernia Hyperlipidemia Hypertension Rheumatoid arthritis Rosacea Spinal stenosis Severe mitral regurgitation Surgical History H/O mitral valve replacement with cardiopulmonary bypass History of cardiac cath 11/2017 - [facility] History of cataract surgery BOTH EYES History of tonsillectomy Hx of heart bypass surgery VESSEL X1, MITRAL VALVE REPLACEMENT, ABLATION - ALL DONE AT SAME SURGERY Hx of transesophageal echocardiography (STEVE) for monitoring Social History Preferred Language: Jamaican Communication Ability: Effective Beliefs That Will Affect Care: None Current Living Situation: Family Other Information That Helps Us Care for You: No Feels Safe at Home: Yes Safety Concerns: Feels Safe At This Time Smoking Status: Former smoker Do You Dip or Chew Tobacco: No Smoking End Date: 1971 Hx Alcohol Use: Yes Alcohol type: hard liquor Hx Substance Use: No Physical Exam Physical Exam: Physical Exam: Constitutional: appearance nourished, NAD Ears, Nose, Mouth and Throat: mucous membranes moist, no injection and skin normal, eyes normal Cardiovascular: normal S-1 and S-2 and regular rate and rhythm Respiratory: course breath sounds Musculoskeletal: no peripheral edema Skin: no stigmata of neurocutaneous disease noted and normal and intact Eyes: extraocular muscles intact (EOMI) and pupils equal, round and reactive to light (PERRL), gross visual nicole intact NEUROLOGIC EXAMINATION: Mental status: Alert and interactive Oriented to full date and location Oriented to person Speech fluent with no evidence of aphasia Cranial Nerves smile eye brows raise symmetric Reflexes: Deep tendon reflexes were symmetrical and graded 2/5. Sensory: to light and cool touch, no tender with palpation to back no discharge or bleeding Coordination: finger to nose no bi pass Gait/Stance: Posture normal. gait no assessed Motor: Negative for pronator drift of out stretched arms with eyes closed. 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
[2018-11-15] MEDS: WARFARIN SOD 2.5 MG TAB PO SCH (17:36)
[2018-11-15] MEDS: TERAZOSIN HCL 5 MG CAP PO SCH (21:43)
[2018-11-16] MEDS: ACETAMINOPHEN 1,000 MG/100 ML VIAL IV PRN (03:09)
[2018-11-16 05:50] LABS: Basophils # (auto) 0.01 K/uL (0-0.2); Basophils % (auto) 0.1 %; Eosinophils # (auto) 0.02 K/uL (0-0.5); Eosinophils % (auto) 0.2 %; Hematocrit (blood only) 31.3 % (42-52); Hemoglobin 10.2 g/dL (14.0-18.0); Immature Granulocytes # (auto) 0.03 K/uL (0.00-0.02); Immature Granulocytes % (auto) 0.3 %; Lymphocytes # (auto) 1.07 K/uL (1.2-3.4); Lymphocytes % (auto) 9.6 %; Mean Corpuscular Hgb Conc 32.6 g/dL (32-36); Mean Corpuscular Volume 98.7 fL (80-100); Mean Platelet Volume 10.2 fL (7.4-10.4); Monocytes # (auto) 1.25 K/uL (0.11-0.59); Monocytes % (auto) 11.3 %; Neutrophils # (auto) 8.72 K/uL (1.4-6.5); Neutrophils % (auto) 78.5 %; Platelet Count 141 K/uL (130-400); RDW Coefficient of Variation 13.6 % (11.5-14.5); RDW Standard Deviation 48.8 fL (36.4-46.3); Red Blood Count 3.17 M/uL (4.7-6.1)
[2018-11-16 06:01] LABS: INR 1.7 (0.9-1.1); Prothrombin Time 17.1 Seconds (9.0-12.0)
[2018-11-16 06:21] LABS: Calcium 7.5 mg/dl (8.5-10.1); Est GFR (African American) 72.3; Est GFR (Non-African American) 62.4; Potassium 3.8 mmol/L (3.5-5.1)
--- NOTE | 2018-11-16 08:02 | Consultation Report ---
DATE OF CONSULTATION: 11/15/2018 INPATIENT CARDIOLOGY CONSULTATION CONSULTATION REQUESTED BY: Zuleika Navas PA-C. REASON FOR CONSULTATION: Hypotension. HISTORY OF PRESENT ILLNESS: Mr. Schultz is a very pleasant 78-year-old gentleman who normally follows with Dr. Laguerre of our Cardiology practice. He presented to [facility] for elective lumbar laminectomy on the and on the morning of the he was noted to be significantly hypotensive. He had some visual changes with this but otherwise felt well. He denied experiencing any chest pain, shortness of breath, palpitations, lightheadedness, dizziness or syncope. He states the vision changes only lasted about half an hour and he felt better. He is having some postoperative back pain, but is relatively well controlled with medications. He was seen by Dr. Laguerre for preop risk assessment and did have an echocardiogram in our office last week as well. After he was found to be hypotensive he started getting IV fluid boluses with good initial response and then some continued hypotension, but is now improving further with continued IV drip. PAST SURGICAL HISTORY: 1. Mitral valve replacement with a 29-mm Magna Ease bioprosthetic prosthesis along with concomitant Salcedo maze and left atrial appendage curve clipping in November 2017. 2. Concomitant coronary bypass grafting surgery with a single graft with a vein graft to the LAD. 3. Postop day #1 for lumbar laminectomy. 4. Colonoscopy. 5. Cataract surgery. MEDICAL ILLNESSES: 1. Severe mitral regurgitation, status post bioprosthetic mitral valve replacement. 2. Paroxysmal atrial fibrillation status post maze procedure and left atrial appendage curve clipping. 3. Coronary artery disease status post CABG x1. 4. Spinal stenosis. 5. Diabetes. 6. Malignant neoplasm of the skin. 7. Prostate cancer. FAMILY HISTORY: Noncontributory given his age. SOCIAL HISTORY: The patient has a very remote tobacco use history. Drinks occasional alcohol. Denies any recreational drug use. He is . He has 4 children. 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 REVIEW OF SYSTEMS: As per HPI, all other review of systems reviewed and negative at this time. ALLERGIES: CODEINE. MEDICATIONS AN OUTPATIENT: 1. Metoprolol succinate 50 mg daily. 2. Terazosin 5 mg daily. 3. Crestor 40 mg daily. 4. Warfarin as directed by the [facility]. 5. Clonidine 0.1 mg t.i.d. 6. Digoxin 125 mcg daily. 7. Prandin with meals. 8. Aspirin 81 mg daily. 9. Januvia daily. 10. Amiodarone 100 mg daily. PHYSICAL EXAMINATION: VITALS: Temperature 36.8, pulse 63, respiratory rate 12, blood pressure 101/62. GENERAL: Awake, alert, oriented x3 in no acute distress, sitting upright in bed and eating dinner. HEENT: Normocephalic, atraumatic. Pupils equal, round, reactive to light and accommodation. Extraocular muscles intact. Anicteric sclerae. Moist mucous membranes. NECK: No JVD, no bruit. CARDIOVASCULAR: Regular. Positive S4. Normal S1 and S2. No S3. No murmurs or rubs. PULMONARY: Clear to auscultation bilaterally. No rales, rhonchi or wheezing. ABDOMEN: Bowel sounds x4, soft. No rebound, guarding, tenderness. No organomegaly. EXTREMITIES: No clubbing, cyanosis or edema. +2 pedal pulses bilaterally. SKIN: Warm and dry. TEST RESULTS: 2D echocardiogram performed on 11/10/2018 was read as normal LV chamber size with mild concentric LVH, normal LV systolic function, EF 61%, moderate left atrial enlargement, grade 2 diastolic dysfunction, mild aortic valve sclerosis without stenosis, bioprosthetic mitral valve prosthesis is present, well functioning without significant stenosis or regurgitation, mild tricuspid regurgitation. No evidence of pulmonary hypertension. Repeat limited echocardiogram today showed no change. LABORATORY STUDIES OF SIGNIFICANCE: Sodium 133, potassium 4.1, BUN 23, creatinine 1.5, baseline creatinine of approximately 1.1. IMPRESSION: 1. Hypotension, likely secondary to volume depletion. 2. Prerenal azotemia. 3. Coronary artery disease, stable. 4. Mitral valve replacement, stable. 5. Paroxysmal atrial fibrillation, currently in sinus. 6. Postop day #1 for lumbar laminectomy. RECOMMENDATIONS: It was my pleasure to see Mr. Schultz in consultation today. From a cardiac standpoint, I believe the patient's hypotension is most likely secondary to volume depletion, so I agree with normal saline that he has been given and should be continued on for now. He does not examine as volume overloaded. He has preserved LV systolic function, so again I would proceed with IV fluids. Otherwise, clonidine has appropriately been held and we will continue to hold that at this time. Otherwise, we will continue his outpatient amiodarone, digoxin, aspirin and metoprolol. Should his blood pressure remain low throughout the evening I would also consider holding his terazosin this evening. Otherwise, we will continue to follow his volume status clinically.
[2018-11-16] MEDS: DOCUSATE SODIUM 100 MG CAP PO SCH ×2 (08:16→21:48)
[2018-11-16] MEDS: BISACODYL 5 MG TABEC PO PRN (08:16)
[2018-11-16] MEDS: OXYCODONE HCL IR 5 MG TAB (IMMEDIATE RELEASE) PO PRN ×2 (08:17→12:00)
[2018-11-16] MEDS: GABAPENTIN 300 MG CAP PO SCH ×2 (08:19→21:46)
[2018-11-16] MEDS: INSULIN ASPART 100 UNITS/ML 3 ML PEN SC SCH ×4 (08:21→21:46)
[2018-11-16] MEDS ORDERED: INVOKANA 300 MG PO SCH (09:00)
--- NOTE | 2018-11-16 09:21 | Hospitalist Progress Note ---
Date of Service November 16, 2018 Assessment & Plan (1) Hypotension: BP was down to 78/45 mm Hg on 11/15/18. Received IV Fluid boluses on 11/15/18 to which he initially responded and later had continued hypotension. But overall improving with IVF. BP stabilized. BP today 104/63. - Clonidine held. Continue with metoprolol with holding parameters. In EMR, still on clonidine- will continue as BP stable - S/P IVF - Avoid narcotics if possible - Cardiology consulted for hypotension- likely volume depletion, no concerning cardiac etiology contributing to this. (2) Vision changes: Had hypotensive episode with some vision changes lasting for around 30 minutes. -Resolved - CT with age-indeterminate infarct but less likely to be related to patient's symptoms. No signs of stroke. - Neurology was consulted (3) PAF (paroxysmal atrial fibrillation): -NSR -Continue with Metoprolol , amiodarone, digoxin - home medications -On coumadin, INR is 1.7 - Consult cardiology due to persistent hypotension - Monitor on telemetry S/P LUMBAR LAMINECTOMY ON 11/14/18 -H & H stable -Pain mx, wound care per primary team DIABETES MELLITUS, TYPE 2 -Hold antidiabetics -ISS, Accuchecks HX OF MITRAL VALVE REPLACEMENT WITH CARDIOPULMONARY BYPASS DYSLIPIDEMIA Continue with home statin DISPOSITION Medical mx in progress Mx per primary team Subjective Patient is doing much better today. BP has stabilized Continues to have some post operative pain- lower back pain Denies any fever, chills, vision changes, nausea, vomiting, abd pain, cough, chest pain, SOB BP stable 122/77 now Physical Exam Constitutional: WD/WN, vitals as above Respiratory: normal respiratory effort, lungs clear to auscultation Cardiovascular: RRR, no murmur, no edema Musculoskeletal: S/P Lumbar laminectomy - Post operative state Results & Data Vital Signs (Past 12 Hours) Vital Signs Temp Pulse Pulse Resp BP Pulse Ox 11/16/18 06:57 36.9 C 71 21 104/63 94 11/16/18 03:20 37.8 C H 76 16 111/67 93 11/16/18 00:04 72 11/15/18 23:00 37.5 C 72 16 121/71 94 (1) Hypotension Hypotension type: unspecified hypotension type Qualified Code(s): I95.9 - Hypotension, unspecified
[2018-11-16] MEDS: cloNIDine HCl 0.1 MG TAB PO SCH (09:44)
[2018-11-16] MEDS: ROSUVASTATIN CALCIUM 20 MG TAB PO SCH (10:01)
[2018-11-16] MEDS: AMIODARONE 200 MG TAB PO SCH (10:02)
--- NOTE | 2018-11-16 10:34 | Cardiology Progress Note ---
Date of Service November 16, 2018 Assessment & Plan (1) Hypotension: somewhat improved with IVF clonidine has been stopped remains asymptomatic will hold AM metoprolol for now pt states that his baseline bp runs 100-110's systolic ok to transfer to ortho floor from cardiac standpoint (2) PAF (paroxysmal atrial fibrillation): has remained in sinus will cont amio and dig warfarin already restarted (3) S/P MVR (mitral valve replacement): stable (4) CAD (coronary artery disease): stable Subjective Pt seen and examined, oob in chair. States that he feels well except for continued back pain. Denies cp, sob, palpitations, lightheadedness or dizziness. tele reviewed: sinus rhythm without arrhythmia or significant ectopy. Review of Systems Review of Systems: All systems reviewed & are unremarkable except as noted in HPI & below Physical Exam Physical Exam: General: Awake, alert and oriented x 3. No acute distress. HEENT: Normocephalic, atraumatic. Pupils equal, round and reactive to light and accommodation. Extraocular muscles are intact. Anicteric sclera. Moist mucous membranes. Neck: No JVD. No bruit. Cardiovascular: Regular. Positive S-4. Normal S-1 and S-2. No S-3. 3/6 mid to late systolic ejection murmur, greatest at the right sternal border, second intercostal space with radiation to the bilateral carotids. No rubs. Pulmonary: Clear to auscultation bilaterally. No rales, rhonchi, or wheezing. Abdomen: Bowel sounds x 4, soft. No rebound, guarding or tenderness. No organomegaly. Extremities: No clubbing, cyanosis or edema. +2 pedal pulses bilaterally. Skin: Warm and dry. Results & Data Vital Signs (Past 12 Hours) Vital Signs Temp Pulse Pulse Resp BP Pulse Ox 11/16/18 06:57 36.9 C 71 21 104/63 94 11/16/18 03:20 37.8 C H 76 16 111/67 93 11/16/18 00:04 72 11/15/18 23:00 37.5 C 72 16 121/71 94 (1) Hypotension Hypotension type: unspecified hypotension type Qualified Code(s): I95.9 - Hypotension, unspecified
[2018-11-16] MEDS: METOPROLOL SUCC 50MG EXT REL TAB PO SCH (11:52)
[2018-11-16] MEDS: DIGOXIN 0.125 MG TAB PO SCH (12:01)
[2018-11-16] MEDS: HYDROmorphone INJ 1 MG/ML SYRINGE IV PRN ×3 (13:24→21:42)
[2018-11-16] MEDS: ASPIRIN 81 MG ECTAB PO SCH (13:25)
--- NOTE | 2018-11-16 14:46 | Neurology Progress Note ---
Date of Service November 16, 2018 Assessment & Plan (1) Vision changes: 1. hypotensive - likely hypoperfusion to posterior circulation 2. MRI brain - once stable to r/o any ischemic event I setting of hypoprofusion 3. CTA head and neck - for vascular causes 4. cardiology adjusting medications and currently doing much better with blood pressure and no dizzy or light headed with out of bed with PT 5. monitor h/h 6. PT/OT for discharge needs 7. coumadin has been restarted along with aspirin 81 mg Supervising Physician Co-Signing Physician Notes I have seen and discussed above patient with Dr Max Rowell, neurology I have seen Mr. Schultz today, briefly examined him, discussed his case with Jacqueline Hunter PA-C and note that he is back to his baseline, has had no more visual loss events, his blood pressure is now more acceptable after reduction of his antihypertensive regimen by cardiology at this point we are simply going to order the duplex of the carotids to be certain he does not have some high-grade stenoses that might have made him a little more sensitive to hypotension and are also going to check the brain MRI to be sure he did not have a shower of emboli or another type of event that may have produced the transient visual obscurations We will check back tomorrow, reviewed the results but if studies are done, are essentially unremarkable, and we do not have a chance to return to see him in the hospital by the afternoon I would not delay any plans for discharge and we can follow-up on an outpatient basis Max Rowell MD Chauncey Madsen is a 78 year old male who has a PMH HTN, DM 2, HLD, PAR, prostrate CA, CHF , valvular heart disease who was admitted on 11/14/2018 for a laminectomy, foraminotomy, partial facetectomy, decompression in the nerve structures, L3-L4, L4-L5, L5-S1. Today he had an episode while sitting in bedside chair had an episode of bright vision and blue fuzzy vision with a blood pressure of 84/56. He states this lasted about 1/2 hour and resolved. His blood pressure is still low but he has not had any further episodes. He had a CT head which showed an old infarct. Today he has been up and walking with PT. Cardiology is adjusting his medications and his BP currently is 122/77. denies CP, SOB, abdominal pain, N, V, headache, current vision changes or further events. 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 5/5 bilaterally hip flex 5/5 bilaterally no pronator drift finger to nose no bi pass oriented to self place date Results & Data Vital Signs (Past 12 Hours) Vital Signs Temp Pulse Pulse Resp BP Pulse Ox 11/16/18 12:01 87 11/16/18 10:39 36.9 C 82 13 122/77 96 11/16/18 08:00 73 11/16/18 06:57 36.9 C 71 21 104/63 94 11/16/18 03:20 37.8 C H 76 16 111/67 93 Laboratory Results Abnormal lab results 11/15/18 11/15/18 11/15/18 Range/Units 16:32 16:34 20:16 WBC (4.8-10.8) K/uL RBC (4.7-6.1) M/uL Hgb (14.0-18.0) g/dL Hct (42-52) % RDW Std Deviation (36.4-46.3) fL Immature Gran # (Auto) (0.00-0.02) K/uL Neut # (Auto) (1.4-6.5) K/uL Lymph # (Auto) (1.2-3.4) K/uL Coffey # (Auto) (0.11-0.59) K/uL PT (9.0-12.0) Seconds INR (0.9-1.1) Chloride (98-107) mmol/L Carbon Dioxide (21-32) mmol/L BUN (7-18) mg/dl Glucose (70-99) mg/dl POC Glucose 273 H 172 H 128 H (70-99) Calcium (8.5-10.1) mg/dl 11/16/18 11/16/18 11/16/18 Range/Units 05:17 05:17 05:17 WBC 11.10 H (4.8-10.8) K/uL RBC 3.17 L (4.7-6.1) M/uL Hgb 10.2 L (14.0-18.0) g/dL Hct 31.3 L (42-52) % RDW Std Deviation 48.8 H (36.4-46.3) fL Immature Gran # (Auto) 0.03 H (0.00-0.02) K/uL Neut # (Auto) 8.72 H (1.4-6.5) K/uL Lymph # (Auto) 1.07 L (1.2-3.4) K/uL Coffey # (Auto) 1.25 H (0.11-0.59) K/uL PT 17.1 H (9.0-12.0) Seconds INR 1.7 H (0.9-1.1) Chloride 109 H (98-107) mmol/L Carbon Dioxide 20 L (21-32) mmol/L BUN 21 H (7-18) mg/dl Glucose 133 H (70-99) mg/dl POC Glucose (70-99) Calcium 7.5 L (8.5-10.1) mg/dl 11/16/18 11/16/18 Range/Units 07:26 11:04 WBC (4.8-10.8) K/uL RBC (4.7-6.1) M/uL Hgb (14.0-18.0) g/dL Hct (42-52) % RDW Std Deviation (36.4-46.3) fL Immature Gran # (Auto) (0.00-0.02) K/uL Neut # (Auto) (1.4-6.5) K/uL Lymph # (Auto) (1.2-3.4) K/uL Coffey # (Auto) (0.11-0.59) K/uL PT (9.0-12.0) Seconds INR (0.9-1.1) Chloride (98-107) mmol/L Carbon Dioxide (21-32) mmol/L BUN (7-18) mg/dl Glucose (70-99) mg/dl POC Glucose 147 H 218 H (70-99) Calcium (8.5-10.1) mg/dl Diagnostic Findings no further imaging
[2018-11-16] MEDS: WARFARIN SOD 2.5 MG TAB PO SCH (17:19)
--- NOTE | 2018-11-16 19:51 | Magnetic Resonance Report ---
Brain MRI WITHOUT CONTRAST HISTORY: Vision changes. possible hypoperfusion stroke TECHNIQUE: Multiplanar multisequence MRI of the brain was performed without the use of contrast. COMPARISON STUDY: Head CT 11/15/2018. FINDINGS: There is no mass, hematoma, midline shift, or acute infarct. The paranasal sinuses are shannon r. The mastoid air cells are clear. The ventricles and sulci demonstrate mild age-related involutiona l changes. Scattered foci of T2 hyperintensity seen within the periventricular and subcortical white matter are nonspecific but suggestive of mild microvascular ischemic changes. The major vascular flow voids at the skull base are well-maintained. 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 IMPRESSION: No acute intracranial abnormality. Scattered foci of T2 hyperintensity seen within the periventricula r and subcortical white matter are nonspecific but favor microvascular ischemic change. Electronically signed by: Galindo Knapp M.D. 11/16/2018 7:50 PM
--- NOTE | 2018-11-16 19:53 | Ultrasound Report ---
BILATERAL CAROTID DOPPLER STUDY HISTORY: Vision changes. possible stroke COMPARISON: None. TECHNIQUE: Real-time, grayscale, and color Doppler sonography of the carotid arteries was performed. Imaging reviewed in the transverse and longitudinal planes. All measurements were calculated based on NASCET criteria. FINDINGS: Antegrade flow is seen in the bilateral vertebral arteries. The brachial pressures are hemodynamically similar. Mild calcified plaque within the bilateral carotid bifurcations. There is suggestion of tachycardia. The peak systolic velocity within the right ICA is 100 cm/s. The right systolic ratio is 1.3. The peak systolic velocity within the left ICA is 73 cm/s. The left systolic ratio is 0.8. IMPRESSION: No hemodynamically significant stenosis seen within the carotid arteries. Possible tachycardia. Clini randal correlation recommended. Electronically signed by: Galindo Knapp M.D. 11/16/2018 7:51 PM
[2018-11-16] MEDS: TERAZOSIN HCL 5 MG CAP PO SCH (21:48)
[2018-11-17] MEDS: HYDROmorphone INJ 1 MG/ML SYRINGE IV PRN (02:54)
[2018-11-17] MEDS: OXYCODONE HCL IR 5 MG TAB (IMMEDIATE RELEASE) PO PRN ×4 (05:41→20:28)
[2018-11-17] MEDS: DOCUSATE SODIUM 100 MG CAP PO SCH ×2 (07:46→20:30)
[2018-11-17] MEDS: AMIODARONE 200 MG TAB PO SCH (07:47)
[2018-11-17] MEDS: ROSUVASTATIN CALCIUM 20 MG TAB PO SCH (07:47)
[2018-11-17] MEDS: GABAPENTIN 300 MG CAP PO SCH ×2 (07:47→20:29)
[2018-11-17] MEDS: MAGNESIUM HYDROXIDE SUSP 30 ML UDC PO PRN (07:50)
[2018-11-17] MEDS: BISACODYL 5 MG TABEC PO PRN (07:50)
[2018-11-17] MEDS: INSULIN ASPART 100 UNITS/ML 3 ML PEN SC SCH ×4 (07:53→22:11)
--- NOTE | 2018-11-17 09:06 | Cardiology Progress Note ---
Date of Service November 17, 2018 Assessment & Plan (1) Hypotension: resolved no hypertensive will restart metoprolol succinate 50mg po daily now cont evening dose of terazosin at 5mg does carry hx of dm2, unclear why not on ACEI or ARB, will cont to investigate in outpatient chart renal function normal ok to transfer to ortho floor from cardiac standpoint (2) PAF (paroxysmal atrial fibrillation): has remained in sinus will cont amio and dig warfarin already restarted (3) S/P MVR (mitral valve replacement): stable (4) CAD (coronary artery disease): stable Subjective Pt seen and examined, oob in chair, family at bedside. States that he's having a great deal of back pain today. Denies cardiac complaints of chest pain, sob, palpitations, lightheadedness or dizziness. tele reviewed: sinus rhythm currently sinus tachycardia, no arrhythmias Review of Systems Review of Systems: All systems reviewed & are unremarkable except as noted in HPI & below Physical Exam Physical Exam: General: Awake, alert and oriented x 3. No acute distress. HEENT: Normocephalic, atraumatic. Pupils equal, round and reactive to light and accommodation. Extraocular muscles are intact. Anicteric sclera. Moist mucous membranes. Neck: No JVD. No bruit. Cardiovascular: Regular. Positive S-4. Normal S-1 and S-2. No S-3. 3/6 mid to late systolic ejection murmur, greatest at the right sternal border, second intercostal space with radiation to the bilateral carotids. No rubs. Pulmonary: Clear to auscultation bilaterally. No rales, rhonchi, or wheezing. Abdomen: Bowel sounds x 4, soft. No rebound, guarding or tenderness. No organomegaly. Extremities: No clubbing, cyanosis or edema. +2 pedal pulses bilaterally. Skin: Warm and dry. Results & Data Vital Signs (Past 12 Hours) Vital Signs Temp Pulse Pulse Resp BP Pulse Ox 11/17/18 06:59 37.1 C 104 H 18 162/95 H 96 11/17/18 03:27 36.6 C 105 H 20 147/78 H 96 11/17/18 00:16 37.3 C 117 H 18 156/82 H 96 11/17/18 00:00 120 H (1) Hypotension Hypotension type: unspecified hypotension type Qualified Code(s): I95.9 - Hypotension, unspecified
[2018-11-17] MEDS: METOPROLOL SUCC 50MG EXT REL TAB PO SCH (09:13)
[2018-11-17] MEDS: DIGOXIN 0.125 MG TAB PO SCH (10:52)
[2018-11-17] MEDS: ASPIRIN 81 MG ECTAB PO SCH (10:52)
--- NOTE | 2018-11-17 12:20 | Hospitalist Progress Note ---
Date of Service November 17, 2018 Assessment & Plan (1) Hypotension: BP was down to 78/45 mm Hg on 11/15/18. Received IV Fluid boluses on 11/15/18 to which he initially responded and later had continued hypotension. But overall improved with IVF. BP stabilized. - Clonidine and metoprolol restarted with holding parameters. On terazosin 5 mg daily - S/P IVF - Avoid narcotics if possible - Cardiology consulted for hypotension- likely volume depletion, no concerning cardiac etiology contributing to this. Appreciate inputs (2) Vision changes: Had hypotensive episode with some vision changes lasting for around 30 minutes. -Resolved - CT with age-indeterminate infarct but less likely to be related to patient's symptoms. No signs of stroke. - Neurology was consulted - Ordered MRI Brain- No acute abn, Microvascular ischemic changes, Carotid US- negative for stenosis (3) PAF (paroxysmal atrial fibrillation): -NSR -Continue with Metoprolol , amiodarone, digoxin - home medications -On coumadin- continue at prior to home doses S/P LUMBAR LAMINECTOMY ON 11/14/18 -H & H stable -Continues to have pain -Pain mx, wound care per primary team DIABETES MELLITUS, TYPE 2 -Hold antidiabetics -ISS, Accuchecks HX OF MITRAL VALVE REPLACEMENT WITH CARDIOPULMONARY BYPASS DYSLIPIDEMIA Continue with home statin DISPOSITION Medical mx in progress- Ok to transfer to med-surg Mx per primary team Subjective Pt seen and examined, oob in chair. C/o post operative pain. Denies cardiac complaints of chest pain, sob, palpitations, lightheadedness or dizziness. tele reviewed: sinus rhythm currently sinus tachycardia, no arrhythmias Physical Exam Physical Exam: Constitutional WD/WN, vitals as above Respiratory normal respiratory effort, lungs clear to auscultation Cardiovascular RRR, no murmur, no edema Musculoskeletal S/P Lumbar laminectomy - Post operative state Results & Data Vital Signs (Past 12 Hours) Vital Signs Temp Pulse Pulse Resp BP Pulse Ox 11/17/18 10:52 88 11/17/18 10:43 36.8 C 87 18 129/76 96 11/17/18 06:59 37.1 C 104 H 18 162/95 H 96 11/17/18 03:27 36.6 C 105 H 20 147/78 H 96 11/17/18 00:16 37.3 C 117 H 18 156/82 H 96 (1) Hypotension Hypotension type: unspecified hypotension type Qualified Code(s): I95.9 - Hypotension, unspecified
[2018-11-17] MEDS: cloNIDine HCl 0.1 MG TAB PO SCH ×2 (13:40→20:29)
--- NOTE | 2018-11-17 15:00 | Communication Note ---
Date of Service: November 17, 2018 I reviewed Mr. Schultz's MRI scan, the actual images and the duplex of his carotids and occlusive state that there are no acute cerebrovascular accidents, only old events are seen and these are more reflective of small vessel disease and that the duplex of the carotids reveals no significant superimposed carotid artery stenosis may have contributed to his vertebral hypoperfusion. Neurology is going to sign off the case with in fact did not really assess him today clinically but only reviewed his outstanding imaging studies Max vinson from the
[2018-11-17] MEDS: WARFARIN SOD 2.5 MG TAB PO SCH (16:15)
[2018-11-17] MEDS: TERAZOSIN HCL 5 MG CAP PO SCH (20:30)
[2018-11-18 06:20] LABS: INR 1.7 (0.9-1.1); Prothrombin Time 16.6 Seconds (9.0-12.0)
[2018-11-18] MEDS: GABAPENTIN 300 MG CAP PO SCH ×2 (07:41→20:47)
[2018-11-18] MEDS: AMIODARONE 200 MG TAB PO SCH (07:41)
[2018-11-18] MEDS: ROSUVASTATIN CALCIUM 20 MG TAB PO SCH (07:41)
[2018-11-18] MEDS: DOCUSATE SODIUM 100 MG CAP PO SCH ×2 (07:41→21:01)
[2018-11-18] MEDS: cloNIDine HCl 0.1 MG TAB PO SCH ×3 (07:41→20:45)
[2018-11-18] MEDS: MAGNESIUM HYDROXIDE SUSP 30 ML UDC PO PRN (07:46)
[2018-11-18] MEDS: OXYCODONE HCL IR 5 MG TAB (IMMEDIATE RELEASE) PO PRN ×3 (07:46→17:33)
[2018-11-18] MEDS: BISACODYL 5 MG TABEC PO PRN (07:46)
[2018-11-18] MEDS: INSULIN ASPART 100 UNITS/ML 3 ML PEN SC SCH ×4 (09:19→20:47)
--- NOTE | 2018-11-18 09:19 | Hospitalist Progress Note ---
Date of Service November 18, 2018 Assessment & Plan (1) Hypotension: RESOLVED BP was down to 78/45 mm Hg on 11/15/18. Received IV Fluid boluses on 11/15/18 to which he initially responded and later had continued hypotension. But overall improved with IVF. BP stabilized. Elevated in AM due to pain, not yet received AM meds - Clonidine and metoprolol restarted with holding parameters. On terazosin 5 mg daily - S/P IVF - Cardiology consulted for hypotension- likely volume depletion, no concerning cardiac etiology contributing to this. Appreciate inputs. (2) Vision changes: Had hypotensive episode with some vision changes lasting for around 30 min utes. -Resolved - CT with age-indeterminate infarct but less likely to be related to patient's symptoms. No signs of stroke. - Neurology was consulted - Ordered MRI Brain- No acute abn, Microvascular ischemic changes, Carotid US- negative for stenosis (3) PAF (paroxysmal atrial fibrillation): -NSR -Continue with Metoprolol , amiodarone, digoxin - home medications -On coumadin- continue at prior to home doses S/P LUMBAR LAMINECTOMY ON 11/14/18 -H & H stable -Continues to have pain -Pain mx, wound care per primary team DIABETES MELLITUS, TYPE 2 -Hold antidiabetics -ISS, Accuchecks HX OF MITRAL VALVE REPLACEMENT WITH CARDIOPULMONARY BYPASS DYSLIPIDEMIA Continue with home statin CONSTIPATION No BM since surgery On colace BID, dulcolax prn DISPOSITION Medical mx in progress Mx per primary team PT/OT ordered as patient wants to go to a facility Subjective Pt had urinary retention overnight, foleys catheter was inserted today morning. C/o post operative pain, constipation. Denies cardiac complaints of chest pain, sob, palpitations, lightheadedness or dizziness. Physical Exam Constitutional: WD/WN, vitals as above Respiratory: normal respiratory effort, lungs clear to auscultation Cardiovascular: RRR, no murmur, no edema Musculoskeletal: S/P Lumbar Laminectomy surgery Genitourinary: Garvey's catheter in situ Results & Data Vital Signs (Past 12 Hours) Vital Signs Temp Pulse Pulse Resp BP Pulse Ox 11/18/18 08:00 36.7 C 90 20 172/86 H 98 11/17/18 23:04 36.8 C 81 18 147/76 H 97 (1) Hypotension Hypotension type: unspecified hypotension type Qualified Code(s): I95.9 - Hypotension, unspecified
[2018-11-18] MEDS: DIGOXIN 0.125 MG TAB PO SCH (10:17)
[2018-11-18] MEDS: LISINOPRIL 20 MG TAB PO SCH (10:17)
[2018-11-18] MEDS: METOPROLOL SUCC 50MG EXT REL TAB PO SCH (10:17)
[2018-11-18] MEDS: ASPIRIN 81 MG ECTAB PO SCH (10:17)
[2018-11-18] MEDS: WARFARIN SOD 2.5 MG TAB PO SCH (15:41)
[2018-11-18] MEDS: ACETAMINOPHEN 1,000 MG/100 ML VIAL IV PRN (15:46)
--- NOTE | 2018-11-18 15:47 | Cardiology Progress Note ---
Date of Service November 18, 2018 Assessment & Plan (1) Hypotension: resolved now hypertensive metoprolol and clonidine resumed pt previously on lisinopril, no note in chart to explain discontinuation renal function normal will give lisinopril 20mg today (2) PAF (paroxysmal atrial fibrillation): has remained in sinus will cont amio and dig warfarin already restarted (3) S/P MVR (mitral valve replacement): stable (4) CAD (coronary artery disease): stable Subjective Pt seen and examined, states that he's in a great deal of back pain after just getting back into bed. Denies cp, sob, palpitations, lightheadedness or dizziness. Review of Systems Review of Systems: All systems reviewed & are unremarkable except as noted in HPI & below Physical Exam Physical Exam: General: Awake, alert and oriented x 3. Mild acute distress. HEENT: Normocephalic, atraumatic. Pupils equal, round and reactive to light and accommodation. Extraocular muscles are intact. Anicteric sclera. Moist mucous membranes. Neck: No JVD. No bruit. Cardiovascular: Regular. Positive S-4. Normal S-1 and S-2. No S-3. No murmurs or rubs. Pulmonary: Clear to auscultation B/L. No rales, rhonchi or wheezing Abdomen: Bowel sounds x 4, soft. No rebound, guarding or tenderness. No organomegaly. Extremities: No clubbing, cyanosis or edema. +2 pedal pulses bilaterally. Skin: Warm and dry. Results & Data Vital Signs (Past 12 Hours) Vital Signs Temp Pulse Pulse Resp BP Pulse Ox 11/18/18 14:52 36.8 C 78 18 110/75 98 11/18/18 13:05 88 166/82 H 11/18/18 10:15 90 163/79 H 11/18/18 08:00 36.7 C 90 20 172/86 H 98 (1) Hypotension Hypotension type: unspecified hypotension type Qualified Code(s): I95.9 - Hypotension, unspecified
--- NOTE | 2018-11-18 18:55 | Urology Consultation ---
Date of Consultation November 18, 2018 Assessment & Plan (1) Hypertension: (2) Atrial fibrillation: (3) Hx of heart bypass surgery: (4) Diabetes mellitus, type 2: (5) Spinal stenosis: (6) Postoperative retention of urine: As he had a large volume retention I suggest he keep the Watkins another 2 days. I suggest void trial in [place] am. I have added finasteride 5mg daily to the terazosin 5mg. I suspect he will resume voiding. If he fails void trial Wednesday then go to rehab with watkins and repeat void trial q 2 days there. Present on Admission?: No History of Present Illness Reason for Consultation: urinary retention Requesting Physician: Dr Michelle Howell Attending Physician: Max Reed, DO History of Present Illness I am asked by Dr Howell to evaluate and treat patient for urinary retention. he is s/p laminectomy for severe symptomatic spinal stenosis. Starting POD#1 he was voiding not great. On POD#2 he developed urinary incontinence. On POD#3 he was noted to be in retention. Watkins placed for a liter. he had great relief with watkins placement. He reports cath insertion was uneventful. He follows for BPH and is on finasteride and alfuzosin. He is taking terazosin here. He has suffered from some post-op constipation but had a bowel movement today. He feels well. Allergies Allergy/AdvReac Type Severity Reaction Status Date / Time pollen extracts Allergy OH sneezing, Verified 10/25/18 12:24 Dust Mite Extract Allergy Mild Sneezing Uncoded 10/25/18 12:24 Home Medications Home Medications Medication Instructions Recorded Confirmed Type acetaminophen 650 mg PO Q12H PRN 10/25/18 11/14/18 History amiodarone 100 mg PO QAM 10/25/18 11/14/18 History amoxicillin 4 tab PO DIRECTED 10/25/18 11/14/18 History aspirin [Aspirin Low Dose] 81 mg PO QDL 10/25/18 11/14/18 History clonidine HCl [Catapres] 0.1 mg PO TID 10/25/18 11/14/18 History diclofenac sodium 2 g TOPICAL BID PRN 10/25/18 11/14/18 History digoxin 125 mcg PO QDL 10/25/18 11/14/18 History gabapentin 300 mg PO BID 10/25/18 11/14/18 History ipratropium bromide 2 spray INTRANASAL BID PRN 10/25/18 11/14/18 History lovastatin 40 mg PO PM 10/25/18 11/14/18 History metoprolol succinate 50 mg PO QDL 10/25/18 11/14/18 History metronidazole 1 applic TOPICAL BID 10/25/18 11/14/18 History nitroglycerin [Nitrostat] 1 tab SUBLINGUAL DIRECTED 10/25/18 11/14/18 History repaglinide [Prandin] 2 mg PO TIDM 10/25/18 11/14/18 History sitagliptin [Januvia] 50 mg PO QDL 10/25/18 11/14/18 History terazosin 2 mg PO HS 10/25/18 11/14/18 History tramadol 50 mg PO QAM PRN 10/25/18 11/14/18 History warfarin 2.5 mg PO DAILY 10/25/18 11/14/18 History canagliflozin [Invokana] 300 mg PO QAM 11/01/18 11/14/18 History tramadol [Ultram] 50 mg PO Q6H PRN #40 tab 11/18/18 Rx Patient History Medical History Atrial fibrillation CAD (coronary artery disease) Cancer PROSTATE - WITH RADIATION Chronic back pain LUMBAR Diabetes mellitus, type 2 Environmental allergies Hearing deficit WEARS HEARING AIDS Hiatal hernia Hyperlipidemia Hypertension Rheumatoid arthritis Rosacea Spinal stenosis Severe mitral regurgitation Surgical History H/O mitral valve replacement with cardiopulmonary bypass History of cardiac cath 11/2017 - [facility] [place] History of cataract surgery BOTH EYES History of tonsillectomy Hx of heart bypass surgery VESSEL X1, MITRAL VALVE REPLACEMENT, ABLATION - ALL DONE AT SAME SURGERY Hx of transesophageal echocardiography (STEVE) for monitoring Social History Preferred Language: Kazakh Communication Ability: Effective Beliefs That Will Affect Care: None Current Living Situation: Family Other Information That Helps Us Care for You: No Feels Safe at Home: Yes Safety Concerns: Feels Safe At This Time Smoking Status: Former smoker Do You Dip or Chew Tobacco: No Smoking End Date: 1971 Hx Alcohol Use: Yes Alcohol type: hard liquor Hx Substance Use: No Review of Systems Review of Systems: NKDA Soc- + children, retired, no tobacco Fam Hx- not contributory at his advanced age ROS_ no fever or chills, no chest pain or SOB, no rash, + numbness in legs improving, + constipation, appetite fair Physical Exam Constitutional: WD/WN, vitals as above well nourished, + thin, well groomed and comfortable Respiratory: normal respiratory effort, lungs clear to auscultation Gastrointestinal (Abdomen): normal bowel sounds, soft, nontender, no hepatosplenomegaly Inspection/Auscultation: abdomen normal to inspection Skin: no rashes, warm and dry Psychiatric: A+Ox3, euthymic affect Genitourinary: watkins catheter in place and secured to leg adhesive securement device, dale urine draining freely. Results & Data Vital Signs (Past 12 Hours) Vital Signs Temp Pulse Pulse Resp BP Pulse Ox 11/18/18 14:52 36.8 C 78 18 110/75 98 11/18/18 13:05 88 166/82 H 11/18/18 10:15 90 163/79 H 11/18/18 08:00 36.7 C 90 20 172/86 H 98
[2018-11-18] MEDS: TERAZOSIN HCL 5 MG CAP PO SCH (20:46)
[2018-11-19] MEDS: OXYCODONE HCL IR 5 MG TAB (IMMEDIATE RELEASE) PO PRN ×3 (01:19→20:59)
[2018-11-19 06:39] LABS: Basophils # (auto) 0.01 K/uL (0-0.2); Basophils % (auto) 0.1 %; Eosinophils # (auto) 0.09 K/uL (0-0.5); Hematocrit (blood only) 29.5 % (42-52); Immature Granulocytes # (auto) 0.06 K/uL (0.00-0.02); Immature Granulocytes % (auto) 0.7 %; Lymphocytes # (auto) 1.29 K/uL (1.2-3.4); Lymphocytes % (auto) 14.4 %; Mean Corpuscular Hgb Conc 33.9 g/dL (32-36); Mean Corpuscular Volume 95.5 fL (80-100); Mean Platelet Volume 9.9 fL (7.4-10.4); Monocytes # (auto) 1.13 K/uL (0.11-0.59); Monocytes % (auto) 12.6 %; Neutrophils # (auto) 6.36 K/uL (1.4-6.5); Neutrophils % (auto) 71.2 %; Platelet Count 204 K/uL (130-400); RDW Coefficient of Variation 13.3 % (11.5-14.5); RDW Standard Deviation 46.2 fL (36.4-46.3); Red Blood Count 3.09 M/uL (4.7-6.1); White Blood Count 8.94 K/uL (4.8-10.8)
[2018-11-19 06:51] LABS: Prothrombin Time 19.5 Seconds (9.0-12.0)
[2018-11-19] MEDS: ACETAMINOPHEN 1,000 MG/100 ML VIAL IV PRN (07:50)
[2018-11-19] MEDS: INSULIN ASPART 100 UNITS/ML 3 ML PEN SC SCH ×4 (09:05→20:58)
--- NOTE | 2018-11-19 09:07 | Progress Note ---
DATE: 11/19/2018 SUBJECTIVE: He is alert, oriented. OBJECTIVE: Vital signs stable. Bowel movement provided. Wound clean, pristine. Ambulatory. He is weak. ASSESSMENT: Status post reconstructive spine surgery. PLAN: He needs rehab placement, work on that over the last 24 hours. Hopefully, get a bed today at the latest tomorrow, Wednesday.
[2018-11-19] MEDS: GABAPENTIN 300 MG CAP PO SCH ×2 (09:08→21:00)
[2018-11-19] MEDS: LISINOPRIL 20 MG TAB PO SCH (09:08)
[2018-11-19] MEDS: ROSUVASTATIN CALCIUM 20 MG TAB PO SCH (09:08)
[2018-11-19] MEDS: FINASTERIDE 5 MG TAB PO SCH (09:08)
[2018-11-19] MEDS: AMIODARONE 200 MG TAB PO SCH (09:09)
[2018-11-19] MEDS: cloNIDine HCl 0.1 MG TAB PO SCH ×3 (09:10→21:00)
[2018-11-19] MEDS: DOCUSATE SODIUM 100 MG CAP PO SCH ×2 (09:13→20:59)
[2018-11-19] MEDS: ASPIRIN 81 MG ECTAB PO SCH (11:25)
[2018-11-19] MEDS: DIGOXIN 0.125 MG TAB PO SCH (11:25)
--- NOTE | 2018-11-19 11:32 | Hospitalist Progress Note ---
Date of Service November 19, 2018 Assessment & Plan (1) Hypotension: HYPOTENSION- RESOLVED BP was down to 78/45 mm Hg on 11/15/18. Received IV Fluid boluses on 11/15/18 to which he initially responded and later had continued hypotension. But overall improved with IVF. BP stabilized. - Continue with clonidine, metoprolol, terazosin 5 mg daily - S/P IVF - Cardiology consulted for hypotension- likely volume depletion, no concerning cardiac etiology contributing to this. Appreciate inputs. Signed off (2) Vision changes: VISION CHANGES- Resolved Had hypotensive episode with some vision changes lasting for around 30 minutes. -Resolved - CT with age-indeterminate infarct but less likely to be related to patient's symptoms. No signs of stroke. - Neurology was consulted - Ordered MRI Brain- No acute abnormalities, Microvascular ischemic changes, Carotid US- negative for stenosis (3) PAF (paroxysmal atrial fibrillation): -NSR -Continue with Metoprolol , amiodarone, digoxin - home medications -On coumadin- continue at prior to home doses S/P LUMBAR LAMINECTOMY ON 11/14/18 -H & H stable -Continues to have pain -Pain mx, wound care per primary team DIABETES MELLITUS, TYPE 2 -Hold antidiabetics -ISS, Accuchecks HX OF MITRAL VALVE REPLACEMENT WITH CARDIOPULMONARY BYPASS DYSLIPIDEMIA Continue with home statin URINARY RETENTION Foleys catheter was placed on 11/18/18 CONSTIPATION Resolved On laxatives DISPOSITION Mx per primary team PT/OT Plan is to discharge to rehab- awaiting placement Updated son by bedside yesterday Subjective Pt is feeling better today. Back pain still present, b ut improved. OOB to chair. Tolerated ambulation a little. Had a BM yesterday Still has foleys catheter No fever, chills, dizziness. Physical Exam Physical Exam: Constitutional WD/WN, vitals as above Respiratory Normal respiratory effort, lungs clear to auscultation Cardiovascular RRR, no murmur, no edema Musculoskeletal S/P Lumbar Laminectomy surgery Genitourinary Garvey's catheter in situ Results & Data Vital Signs (Past 12 Hours) Vital Signs Temp Pulse Pulse Resp BP Pulse Ox 11/19/18 11:25 78 11/19/18 07:00 36.7 C 73 16 130/73 97 (1) Hypotension Hypotension type: unspecified hypotension type Qualified Code(s): I95.9 - Hypotension, unspecified
[2018-11-19] MEDS: METOPROLOL SUCC 50MG EXT REL TAB PO SCH (13:35)
[2018-11-19] MEDS: WARFARIN SOD 2.5 MG TAB PO SCH (16:52)
[2018-11-19] MEDS: TERAZOSIN HCL 5 MG CAP PO SCH (21:00)
[2018-11-20] MEDS: OXYCODONE HCL IR 5 MG TAB (IMMEDIATE RELEASE) PO PRN ×2 (04:58→18:57)
[2018-11-20 06:35] LABS: INR 2.2 (0.9-1.1); Prothrombin Time 21.2 Seconds (9.0-12.0)
[2018-11-20] MEDS: ACETAMINOPHEN 1,000 MG/100 ML VIAL IV PRN (08:08)
--- NOTE | 2018-11-20 08:14 | Hospitalist Progress Note ---
Date of Service November 20, 2018 Assessment & Plan (1) Post-operative state: S/P LUMBAR LAMINECTOMY ON 11/14/18 -H & H stable -Continues to have pain, but now tolerable with PO narcotics -Pain mx, wound care per primary team (2) Postoperative retention of urine: Foleys catheter was placed on 11/18/18 due to urinary retention -Plan is for a voiding trial today -Urology was consulted (3) Hypotension: HYPOTENSION- RESOLVED BP was down to 78/45 mm Hg on 11/15/18. Received IV Fluid boluses on 11/15/18 to which he initially responded and later had continued hypotension. But overall improved with IVF. BP stabilized. - Continue with clonidine, metoprolol, terazosin 5 mg daily - S/P IVF - Cardiology consulted for hypotension- likely volume depletion, no concerning cardiac etiology contributing to this. Appreciate inputs. Signed off (4) Vision changes: VISION CHANGES- Resolved Had hypotensive episode with some vision changes lasting for around 30 minutes. -Resolved - CT with age-indeterminate infarct but less likely to be related to patient's symptoms. No signs of stroke. - Neurology was consulted - Ordered MRI Brain- No acute abnormalities, Microvascular ischemic changes, Carotid US- negative for stenosis (5) PAF (paroxysmal atrial fibrillation): -NSR -Continue with Metoprolol , amiodarone, digoxin - home medications -On coumadin- continue at prior to home doses DIABETES MELLITUS, TYPE 2 -Hold antidiabetics -ISS, Accuchecks HX OF MITRAL VALVE REPLACEMENT WITH CARDIOPULMONARY BYPASS DYSLIPIDEMIA Continue with home statin CONSTIPATION Resolved On laxatives DISPOSITION Mx per primary team PT/OT Plan is to discharge to rehab- awaiting placement Updated son by bedside yesterday Subjective Pt is feeling better today. Back pain still present, but tolerable on p.o. narcotics OOB to chair. Tolerating ambulation better. Had a BM Still has foleys catheter No fever, chills, dizziness. Physical Exam Constitutional: WD/WN, vitals as above Respiratory: normal respiratory effort, lungs clear to auscultation Cardiovascular: RRR, no murmur, no edema Musculoskeletal: Status post lumbar laminectomy Results & Data Vital Signs (Past 12 Hours) Vital Signs Temp Pulse Resp BP Pulse Ox 11/20/18 07:24 36.8 C 82 16 142/79 H 97 11/19/18 23:00 37 C 74 16 132/74 98 (1) Hypotension Hypotension type: unspecified hypotension type Qualified Code(s): I95.9 - Hypotension, unspecified
[2018-11-20] MEDS: GABAPENTIN 300 MG CAP PO SCH ×2 (09:20→20:30)
[2018-11-20] MEDS: AMIODARONE 200 MG TAB PO SCH (09:21)
[2018-11-20] MEDS: ROSUVASTATIN CALCIUM 20 MG TAB PO SCH (09:23)
[2018-11-20] MEDS: FINASTERIDE 5 MG TAB PO SCH (09:23)
[2018-11-20] MEDS: cloNIDine HCl 0.1 MG TAB PO SCH ×3 (09:24→20:30)
[2018-11-20] MEDS: LISINOPRIL 20 MG TAB PO SCH (09:25)
[2018-11-20] MEDS: INSULIN ASPART 100 UNITS/ML 3 ML PEN SC SCH ×4 (09:29→21:27)
[2018-11-20] MEDS: DOCUSATE SODIUM 100 MG CAP PO SCH ×2 (10:07→20:33)
[2018-11-20] MEDS: METOPROLOL SUCC 50MG EXT REL TAB PO SCH (11:17)
[2018-11-20] MEDS: ASPIRIN 81 MG ECTAB PO SCH (11:17)
[2018-11-20] MEDS: DIGOXIN 0.125 MG TAB PO SCH (11:18)
[2018-11-20] MEDS: METRONIDAZOLE 0.75% TOP SCH ×2 (12:49→20:31)
[2018-11-20] MEDS: WARFARIN SOD 2.5 MG TAB PO SCH (16:37)
[2018-11-20] MEDS: TERAZOSIN HCL 5 MG CAP PO SCH (20:31)
[2018-11-20] MEDS ORDERED: INSULIN GLARGINE SOLOSTAR 100 UNITS/ML 3 ML PEN SQ ONE (21:45)
[2018-11-20] MEDS ORDERED: NSS + 20MEQ KCL 20 MEQ/1,000 ML BAG IV ONE (22:44)
[2018-11-21] MEDS: OXYCODONE HCL IR 5 MG TAB (IMMEDIATE RELEASE) PO PRN ×4 (03:17→18:18)
[2018-11-21] MEDS: ROSUVASTATIN CALCIUM 20 MG TAB PO SCH (08:40)
[2018-11-21] MEDS: LISINOPRIL 20 MG TAB PO SCH (08:41)
[2018-11-21] MEDS: AMIODARONE 200 MG TAB PO SCH (08:41)
[2018-11-21] MEDS: cloNIDine HCl 0.1 MG TAB PO SCH ×2 (08:42→13:16)
[2018-11-21] MEDS: GABAPENTIN 300 MG CAP PO SCH (08:43)
[2018-11-21] MEDS: METRONIDAZOLE 0.75% TOP SCH (08:43)
[2018-11-21] MEDS: FINASTERIDE 5 MG TAB PO SCH (08:44)
[2018-11-21] MEDS: DOCUSATE SODIUM 100 MG CAP PO SCH (08:45)
[2018-11-21] MEDS: INSULIN ASPART 100 UNITS/ML 3 ML PEN SC SCH ×3 (08:47→18:12)
[2018-11-21] MEDS: ASPIRIN 81 MG ECTAB PO SCH (11:17)
[2018-11-21] MEDS: DIGOXIN 0.125 MG TAB PO SCH (11:17)
[2018-11-21] MEDS: METOPROLOL SUCC 50MG EXT REL TAB PO SCH (11:18)
[2018-11-21] MEDS: ACETAMINOPHEN 1,000 MG/100 ML VIAL IV PRN (11:22)
[2018-11-21 12:04] LABS: Hematocrit (blood only) 29.3 % (42-52); Hemoglobin 9.7 g/dL (14.0-18.0); Mean Corpuscular Hgb Conc 33.1 g/dL (32-36); Mean Corpuscular Volume 95.8 fL (80-100); Mean Platelet Volume 9.2 fL (7.4-10.4); Platelet Count 271 K/uL (130-400); RDW Coefficient of Variation 13.3 % (11.5-14.5); RDW Standard Deviation 46.3 fL (36.4-46.3); Red Blood Count 3.06 M/uL (4.7-6.1); White Blood Count 8.13 K/uL (4.8-10.8)
--- NOTE | 2018-11-21 12:14 | Hospitalist Progress Note ---
Date of Service November 21, 2018 Assessment & Plan (1) Post-operative state: S/P LUMBAR LAMINECTOMY ON 11/14/18 -H & H stable -Continues to have pain, but now tolerable with PO narcotics -Pain mx, wound care per primary team (2) Postoperative retention of urine: Foleys catheter was placed on 11/18/18 due to urinary retention -S/P Removal today- voided 100-200 cc -S/P Urology consult (3) Hypotension: HYPOTENSION- RESOLVED BP was down to 78/45 mm Hg on 11/15/18. Received IV Fluid boluses on 11/15/18 to which he initially responded and later had continued hypotension. But overall improved with IVF. BP stabilized. - Continue with clonidine, metoprolol, terazosin 5 mg daily - S/P IVF - Cardiology consulted for hypotension- likely volume depletion, no concerning cardiac etiology contributing to this. Appreciate inputs. Signed off (4) Vision changes: VISION CHANGES- Resolved Had hypotensive episode with some vision changes lasting for around 30 minutes. -Resolved - CT with age-indeterminate infarct but less likely to be related to patient's symptoms. No signs of stroke. - Neurology was consulted - Ordered MRI Brain- No acute abnormalities, Microvascular ischemic changes, Carotid US- negative for stenosis (5) PAF (paroxysmal atrial fibrillation): -NSR -Continue with Metoprolol , amiodarone, digoxin - home medications -On coumadin- continue at prior to home doses DIABETES MELLITUS, TYPE 2 -Hold antidiabetics -ISS, Accuchecks HX OF MITRAL VALVE REPLACEMENT WITH CARDIOPULMONARY BYPASS DYSLIPIDEMIA Continue with home statin CONSTIPATION Resolved On laxatives DISPOSITION Mx per primary team PT/OT Plan is to discharge to rehab vs skilled today- awaiting placement Subjective Pt is still c/o back pain Had his foleys catheter removed today---> voided 100-200 cc Constipation has resolved Ambulated a little with PT today No fever, chills. Physical Exam Physical Exam: Constitutional WD/WN, vitals as above Respiratory normal respiratory effort, lungs clear to auscultation Cardiovascular RRR, no murmur, no edema Musculoskeletal Status post lumbar laminectomy Results & Data Vital Signs (Past 12 Hours) Vital Signs Temp Pulse Pulse Resp BP BP Pulse Ox 11/21/18 11:27 133/74 11/21/18 11:17 68 11/21/18 07:54 36.5 C 66 16 161/85 H 97 (1) Hypotension Hypotension type: unspecified hypotension type Qualified Code(s): I95.9 - Hypotension, unspecified
[2018-11-21 12:42] LABS: BUN Creatinine Ratio 22.9 (10-20); Calcium 8.3 mg/dl (8.5-10.1); Creatinine Clr Calc Pharmacy 61.4 ml/min; Est GFR (African American) 95.4; Est GFR (Non-African American) 82.3; Potassium 3.6 mmol/L (3.5-5.1)
--- NOTE | 2018-11-21 14:57 | Progress Note ---
DATE: 11/21/2018 SUBJECTIVE: He is alert, oriented, minimal complaints of pain. OBJECTIVE: Vital signs stable. Blood pressure normal. Afebrile. Moves all extremities. Alert, oriented. No abdominal pain. ASSESSMENT: Status post multilevel decompression laminectomy. PLAN: We will send him to rehab hospital program today. We will have him see him back for followup in approximately 2 weeks.
--- OUTSIDE RECORDS SUMMARY | 2018-11-21 15:02 | External Medical Summary | Continuity of Care Document ---
:1940 Author Name Fito Lorenzana, Provider Address Unavailable Unavailable , Care Team Providers Name Role Phone Unavailable Unavailable Unavailable Christopher [email or web address] Debbie [email or web address], [email or web address] DANIELE LOVE Unavailable Unavailable Unavailable Unavailable Unavailable Problems Personal history of malignant melanoma of skin (V10.82) (Z85 .820) Neoplasm of uncertain behavior of skin (238.2) (D48.5) Sciatica (724.3) (M54.30) Folliculitis (704.8) (L73.9) History of SCC (squamous cell carcinoma) of skin (V10.83) (Z 85.828) History of basal cell carcinoma (V10.83) (Z85.828) Actinic keratosis (702.0) (L57.0) Acne vulgaris (706.1) (L70.0) Seborrheic keratosis (702.19) (L82.1) Allergies and Adverse Reactions Codeine Derivatives (Allergy) Medications Gabapentin 300 MG Oral Capsule; TAKE 1 CAPSULE 3 times daily , M.D. Quantity: 42 Refills: 0 Coumadin 2.5 MG Oral Tablet , M.D. Refills: 0 Lisinopril TABS; TAKE 1 TABLET ONCE DAILY. , M.D. Refills: 0 Omeprazole 20 MG Oral Capsule Delayed Release; TAKE 1 CAPSUL E DAILY. , M.D. Refills: 0 Crestor TABS; TAKE 1 TABLET DAILY. , M.D. Refills: 0 Norvasc TABS; TAKE 1 TABLET DAILY FOR BLOOD PRESSURE. , M.D. Refills: 0 Clindamycin Phosphate 1 % External Lotion; APPLY TWICE A DAY Harriett Rome Start: 05-Apr-2015 Quantity: 1 60 ML Bottle Refills: 4 Singulair TABS , M.D. Refills: 0 Albuterol Sulfate (2.5 MG/3ML) 0.083% Inhalation Nebulizatio n Solution , M.D. Refills: 0 hydroCHLOROthiazide TABS , M.D. Refills: 0 Doxycycline Hyclate 100 MG Oral Capsule; TAKE 1 CAPSUL E TWICE DAILY. Harriett Rmoe Start: 09-Jul-2015 Quantity: 56 Refills: 0 Amiodarone HCl - 200 MG Oral Tablet , M.D. Refills: 0 Hytrin CAPS , M.D. Refills: 0 Januvia TABS; TAKE 1 TABLET DAILY. , M.D. Refills: 0 metFORMIN HCl - 500 MG Oral Tablet; TAKE 2 TABLETS DAILY. , M.D. Refills: 0 Prandin 1 MG Oral Tablet; TAKE 1 TABLET 3 TIMES DAILY, 15-30 MINUTES BEFORE MEALS. , M.D. Refills: 0 Fluorouracil 5 % External Cream; Apply t o scalp once daily at bedtime for 3 weeks PREETI Lewis Start: 06-Dec-2017 Quantity: 1 40 GM Tube Refills: 0 Procedures Procedures not documented Immunizations Immunizations not documented Social History - Smoking Status Former smoker Interventions Follow-ups/ReferralsFollow-up visit in 3 months; Done: 06 Jan 2018Follow-up visit in 6 months; Done: 06 Jan 2018 Plan of Treatment Planned Observations Planned Goals not documented Results No Known Results Results not documented Encounters Appointment; Cathy Lewis PA-C 06-Dec-2017 15:30 Encounter Diagnosis: Problem not documented Appointment; Christopher Rome M.D. 08-Jun-2017 15:00 Encounter Diagnosis: Problem not documented Appointment; Christopher Rome M.D. 14-Dec-2016 14:20 Encounter Diagnosis: Problem not documented
[2018-11-21] MEDS: WARFARIN SOD 2.5 MG TAB PO SCH (16:23)
[2018-11-21] MEDS ORDERED: INSULIN GLARGINE SOLOSTAR 100 UNITS/ML 3 ML PEN SC SCH (21:00)
--- NOTE | 2018-11-26 02:41 | Discharge Summary ---
Cale had lumbar spinal stenosis surgery complicated by cardiac events, pulmonary events. He was delightful. We worked him with rehabilitation. We got him out of intensive care. He was up and ambulatory. We discharged him home in improved stable condition with no major issues. He always remained afebrile. His wound was always clean. There were no other issues other than his cardiac and weakness. He was discharged to rehab successfully. Follow with me in approximately 10 days.
== END 2018-11-21 18:49 | DRG 517 ==
LOC: ASU 10:47 → 3E 14:11 → 2E 11-15 13:56 → 3N 11-17 12:17

== ENCOUNTER 2018-12-28 21:09 | Inpatient (IN) ==
[2018-12-28 21:39] LABS: iSTAT Creatinine 0.8 mg/dl (0.6-1.3); iSTAT Hemoglobin 13.9 g/dl (14.0-18.0); iSTAT Ionized Calcium 1.21 mmol/l (1.12-1.32); iSTAT Potassium 4.1 mEq/L (3.3-5.0)
--- NOTE | 2018-12-28 21:47 | CT Scan Report ---
CT SCAN OF THE BRAIN WITHOUT IV CONTRAST CLINICAL HISTORY: Headache. Stroke like symptoms. COMPARISON STUDY: CT of the brain dated 11/15/2018. TECHNIQUE: Unenhanced axial CT scan of the brain is performed from the vertex to the skull base. A do se lowering technique was utilized adhering to the principles of ALARA. CT DOSE: 537.48 mGy.cm FINDINGS: Brain parenchyma: There are age-related involutional changes noting mild subcortical and periventric ular microangiopathic change. There is no hemorrhage, mass effect, or evidence of acute territorial i schemia by CT criteria. A small chronic lacunar infarct is identified in the right caudate head. Wolfe -white matter differentiation is preserved. No extra-axial fluid collection is seen. Ventricles, sulci, cisterns: Prominent secondary to involutional change. Intracranial vasculature: There is atherosclerotic calcification of the cavernous carotid arteries. Calvarium: Unremarkable. Sinuses and mastoids: The visualized paranasal sinuses are clear. The mastoid air cells are well pneu matized. Orbits: The bony orbits are grossly intact. There are bilateral ocular lens implants. IMPRESSION: There is no hemorrhage, mass effect, or evidence of acute territorial ischemia by CT reynold zhou. Electronically signed by: Krystian Acuna M.D. 12/28/2018 9:45 PM
[2018-12-28 21:49] LABS: Basophils # (auto) 0.02 K/uL (0-0.2); Basophils % (auto) 0.3 %; Eosinophils # (auto) 0.14 K/uL (0-0.5); Eosinophils % (auto) 1.9 %; Hematocrit (blood only) 41.6 % (42-52); Hemoglobin 13.7 g/dL (14.0-18.0); Immature Granulocytes # (auto) 0.03 K/uL (0.00-0.02); Immature Granulocytes % (auto) 0.4 %; Lymphocytes # (auto) 1.94 K/uL (1.2-3.4); Lymphocytes % (auto) 26.9 %; Mean Corpuscular Hgb Conc 32.9 g/dL (32-36); Mean Corpuscular Volume 96.1 fL (80-100); Monocytes # (auto) 0.81 K/uL (0.11-0.59); Monocytes % (auto) 11.2 %; Neutrophils # (auto) 4.27 K/uL (1.4-6.5); Neutrophils % (auto) 59.3 %; Platelet Count 238 K/uL (130-400); RDW Coefficient of Variation 14.2 % (11.5-14.5); RDW Standard Deviation 50.1 fL (36.4-46.3); Red Blood Count 4.33 M/uL (4.7-6.1); White Blood Count 7.21 K/uL (4.8-10.8)
[2018-12-28 22:02] LABS: INR 1.7 (0.9-1.1); Partial Thromboplastin Ratio 1.2; Partial Thromboplastin Time 33.2 Seconds (21.0-31.0); Prothrombin Time 17.1 Seconds (9.0-12.0)
[2018-12-28 22:10] LABS: Alanine Aminotransferase 27 U/L (12-78); Albumin Level 3.4 gm/dl (3.4-5.0); Aspartate Aminotransferase 23 U/L (15-37); BUN Creatinine Ratio 36.3 (10-20); Blood Urea Nitrogen 32 mg/dl (7-18); Calcium 9.8 mg/dl (8.5-10.1); Carbon Dioxide 25 mmol/L (21-32); Chloride 105 mmol/L (98-107); Creatinine Clr Calc Pharmacy 57.6 ml/min; Est GFR (African American) 93.6; Est GFR (Non-African American) 80.8; Glucose 118 mg/dl (70-99); Magnesium 2.3 mg/dl (1.8-2.4); Potassium 4.2 mmol/L (3.5-5.1); Sodium 139 mmol/L (136-145)
[2018-12-28 22:15] LABS: Albumin Globulin Ratio 0.8 (0.9-2); Alkaline Phosphatase 94 U/L (45-117); Bilirubin,Total 0.4 mg/dl (0.2-1); Total Protein 7.4 gm/dl (6.4-8.2); Troponin I < 0.015 ng/ml (0-0.045)
[2018-12-28] MEDS ORDERED: WARFARIN SOD 5 MG TAB PO ONE (22:18)
--- NOTE | 2018-12-28 23:07 | Emergency Department Note ---
Entered by Mike Howell acting as a scribe for History of Present Illness General Chief complaint: Neuro Symptoms/Deficit Stated complaint: NEURO SYMPTOMS Time Seen by Provider: 12/28/18 21:14 Source: patient Limitations: no limitations History of Present Illness Onset (ago): hour(s) (13) Location: head Pain Consistency: + constant Quality: + other (tingling) Treatments prior to arrival: other (coumadin) The patient is a 78 year old male who presents to the Emergency Room with complaints of constant neurologic symptoms starting at 8 AM. The patient states he has tingling in his left fingers right now. He states he takes Coumadin. Denies any chest pain, fall, Diffley breathing, blood in urine. No nausea vomiting or diarrhea. Home Medications Home Medications Medication Instructions Recorded Confirmed Type Januvia 50 mg PO QDL 10/25/18 12/28/18 History acetaminophen 650 mg PO Q12H PRN 10/25/18 12/28/18 History amiodarone 100 mg PO QAM 10/25/18 12/28/18 History amoxicillin 4 tab PO DIRECTED 10/25/18 12/28/18 History aspirin [Aspirin Low Dose] 81 mg PO QDL 10/25/18 12/28/18 History clonidine HCl [Catapres] 0.1 mg PO TID 10/25/18 12/28/18 History diclofenac sodium 2 g TOPICAL BID PRN 10/25/18 12/28/18 History digoxin 125 mcg PO QDL 10/25/18 12/28/18 History gabapentin 300 mg PO BID 10/25/18 12/28/18 History ipratropium bromide 2 spray INTRANASAL BID PRN 10/25/18 12/28/18 History lovastatin 40 mg PO PM 10/25/18 12/28/18 History metoprolol succinate 50 mg PO QDL 10/25/18 12/28/18 History metronidazole 1 applic TOPICAL BID 10/25/18 12/28/18 History nitroglycerin [Nitrostat] 1 tab SUBLINGUAL DIRECTED 10/25/18 12/28/18 History repaglinide [Prandin] 2 mg PO TIDM 10/25/18 12/28/18 History tramadol 50 mg PO QAM PRN 10/25/18 12/28/18 History warfarin 2.5 mg PO 5XWK 10/25/18 12/28/18 History Invokana 300 mg PO QAM 11/01/18 12/28/18 History tramadol [Ultram] 50 mg PO Q6H PRN #40 tab 11/18/18 12/28/18 Rx terazosin 5 mg PO DAILY 12/28/18 12/28/18 History warfarin 1.25 mg PO 2XWK 12/28/18 12/28/18 History Allergies Allergy/AdvReac Type Severity Reaction Status Date / Time pollen extracts Allergy DC sneezing, Verified 12/28/18 22:30 Dust Mite Extract Allergy Mild Sneezing Uncoded 12/28/18 22:30 Past Med/Surg History Medical History Atrial fibrillation CAD (coronary artery disease) Cancer PROSTATE - WITH RADIATION Chronic back pain LUMBAR Diabetes mellitus, type 2 Environmental allergies Hearing deficit WEARS HEARING AIDS Hiatal hernia Hyperlipidemia Hypertension Rheumatoid arthritis Rosacea Severe mitral regurgitation Spinal stenosis Surgical History H/O mitral valve replacement with cardiopulmonary bypass History of cardiac cath 11/2017 - [facility] History of cataract surgery BOTH EYES History of tonsillectomy Hx of heart bypass surgery VESSEL X1, MITRAL VALVE REPLACEMENT, ABLATION - ALL DONE AT SAME SURGERY Hx of transesophageal echocardiography (STEVE) for monitoring Social History Preferred Language: [place]ian Communication Ability: Effective Beliefs That Will Affect Care: None Current Living Situation: Family Feels Safe at Home: Yes Smoking Status: Former smoker Hx Alcohol Use: Yes Alcohol type: hard liquor Hx Substance Use: No Review of Systems See HPI for pertinent positives & negatives. and A total of 10 systems reviewed and were otherwise negative Physical Exam Vital Signs Vital Signs - 24 hr 12/28/18 21:02 12/28/18 21:14 12/28/18 21:16 Temperature 36.7 C Temperature Source Oral Sepsis Recent Fever Within 48 Hours No Sepsis New/Unexplained Change in Mental Status No Sepsis Action Taken by Nursing No Action Required Pulse Rate 60 60 58 L Pulse Rate from SpO2 Sensor 60 57 L Pulse Rhythm Regular Pulse Strength Normal Respiratory Rate 18 16 18 Respiratory Effort / Characteristics Non-Labored Spontaneous Respiratory Depth Normal Respiratory Pattern Regular Blood Pressure 160/87 H 160/87 H Blood Pressure Mean 111 111 Blood Pressure Position Lying Pulse Oximetry 99 99 99 Oxygen Delivery Method Room Air 12/28/18 21:20 12/28/18 21:48 12/28/18 21:49 Temperature Temperature Source Sepsis Recent Fever Within 48 Hours Sepsis New/Unexplained Change in Mental Status Sepsis Action Taken by Nursing Pulse Rate 50 L 55 L 50 L Pulse Rate from SpO2 Sensor 50 L 49 L Pulse Rhythm Pulse Strength Respiratory Rate 18 23 24 Respiratory Effort / Characteristics Respiratory Depth Respiratory Pattern Blood Pressure 157/85 H Blood Pressure Mean 109 Blood Pressure Position Pulse Oximetry 100 97 Oxygen Delivery Method 12/28/18 21:51 12/28/18 22:00 12/28/18 22:02 Temperature Temperature Source Sepsis Recent Fever Within 48 Hours Sepsis New/Unexplained Change in Mental Status Sepsis Action Taken by Nursing Pulse Rate 48 L 54 L 61 Pulse Rate from SpO2 Sensor 48 L 53 L 61 Pulse Rhythm Pulse Strength Respiratory Rate 16 15 19 Respiratory Effort / Characteristics Respiratory Depth Respiratory Pattern Blood Pressure Blood Pressure Mean 126 Blood Pressure Position Pulse Oximetry 97 99 97 Oxygen Delivery Method 12/28/18 22:10 12/28/18 22:20 12/28/18 22:23 Temperature Temperature Source Sepsis Recent Fever Within 48 Hours Sepsis New/Unexplained Change in Mental Status Sepsis Action Taken by Nursing Pulse Rate 46 L 48 L 50 L Pulse Rate from SpO2 Sensor 47 L 48 L 47 L Pulse Rhythm Pulse Strength Respiratory Rate 21 16 19 Respiratory Effort / Characteristics Respiratory Depth Respiratory Pattern Blood Pressure 147/75 H Blood Pressure Mean 99 Blood Pressure Position Pulse Oximetry 98 98 98 Oxygen Delivery Method 12/28/18 22:30 12/28/18 22:40 12/28/18 22:50 Temperature Temperature Source Sepsis Recent Fever Within 48 Hours Sepsis New/Unexplained Change in Mental Status Sepsis Action Taken by Nursing Pulse Rate 51 L 62 60 Pulse Rate from SpO2 Sensor 50 L 50 L 56 L Pulse Rhythm Pulse Strength Respiratory Rate 18 28 H 19 Respiratory Effort / Characteristics Respiratory Depth Respiratory Pattern Blood Pressure 147/78 H Blood Pressure Mean 101 Blood Pressure Position Pulse Oximetry 98 97 100 Oxygen Delivery Method GENERAL: He is oriented to person, place, and time. He appears well-developed and well-nourished. He does not appear distressed. HENT: Exam performed. - Head: Normocephalic and atraumatic. - Right Ear: External ear normal. No mastoid tenderness. - Left Ear: External ear normal. No mastoid tenderness. - Mouth/Throat: The oropharynx is clear and moist. No trismus in the jaw. No dental abscesses or uvula swelling. No oropharyngeal exudate or tonsillar abscesses. EYES: Conjunctivae and EOM are normal. Pupils are equal, round, and reactive to light. Right eye exhibits no discharge. Left eye exhibits no discharge. No scleral icterus. NECK: Normal range of motion. Neck supple. No JVD present. No spinous process tenderness present. No carotid bruit present. No rigidity. No tracheal deviation and normal range of motion present. No Brudzinski's sign and no Kernig's sign noted. CV: Normal rate, regular rhythm, normal heart sounds and intact distal pulses. There is no peripheral edema. Palpable radial pulses bue. PULM/CHEST: Effort normal and breath sounds normal. No respiratory distress. No stridor. He has no wheezes. He has no rales. - Chest Wall: He exhibits no tenderness. ABD: The abdomen is soft. Bowel sounds are normal. He has no distension. No mass is present. There is no tenderness. There is no rebound, no guarding, no Pennington's sign and no tenderness at McBurney's point. Rovsig negative. MUSC/SKEL: Normal range of motion. There is no peripheral edema, tenderness or deformity. LYMPH: No cervical adenopathy. NEURO: NIHSS stroke scale: 2. 1 for mild dysarthria. 1 for mild left sided facial droop. SKIN: Skin is warm and dry. He is not diaphoretic. PSYCH: He has a normal mood and affect. Behavior is normal. Judgment and thought content normal. Course 2117: The patient was evaluated in room C6, and a complete history and physical examination were performed. Code stroke was not called at this time as the patient was on Coumadin and his symptoms started at 8 AM making him not a candid ate for TPA. 2214: Vital signs stable. CT of the head shows no acute ICH. Labs within normal limites. Patient will be admitted for stroke. No TPA given the onset of the symptoms started around 8 AM. I discussed the patient's case with Dr. Yip [facility]. He will evaluate the patient for further management. Administered Medications Discontinued Medications Warfarin Sodium (Coumadin) 5 mg PO NOW ONE Stop: 12/28/18 22:19 Last Admin: 12/28/18 22:58 Dose: 5 mg Documented by: [id number] Cosigned by: [id number] Medical Decision Making Medical Records Attestation: I reviewed the patient's medical records. Home Medications Current Medication List: was personally reviewed by me Laboratory Data Attestation: I reviewed the patient's lab results. Result diagrams: 12/28/18 20:47 12/28/18 20:47 Lab Results 12/28/18 12/28/18 12/28/18 Range/Units 20:47 20:47 20:47 WBC 7.21 (4.8-10.8) K/uL RBC 4.33 L (4.7-6.1) M/uL Hgb 13.7 L (14.0-18.0) g/dL POC Hgb (14.0-18.0) g/dl Hct 41.6 L (42-52) % POC Hct (42-52) % MCV 96.1 (80-100) fL MCH 31.6 (25-34) pg MCHC 32.9 (32-36) g/dL RDW Std Deviation 50.1 H (36.4-46.3) fL RDW Coeff of Laura 14.2 (11.5-14.5) % Plt Count 238 (130-400) K/uL MPV 10.0 (7.4-10.4) fL Immature Gran % (Auto) 0.4 % Neut % (Auto) 59.3 % Lymph % (Auto) 26.9 % Frio % (Auto) 11.2 % Eos % (Auto) 1.9 % Baso % (Auto) 0.3 % Immature Gran # (Auto) 0.03 H (0.00-0.02) K/uL Neut # (Auto) 4.27 (1.4-6.5) K/uL Lymph # (Auto) 1.94 (1.2-3.4) K/uL Frio # (Auto) 0.81 H (0.11-0.59) K/uL Eos # (Auto) 0.14 (0-0.5) K/uL Baso # (Auto) 0.02 (0-0.2) K/uL PT 17.1 H (9.0-12.0) Seconds POC INR (0.9-1.1) INR 1.7 H (0.9-1.1) APTT 33.2 H (21.0-31.0) Seconds PTT Ratio 1.2 POC Sodium (135-144) mEq/L Sodium 139 (136-145) mmol/L POC Potassium (3.3-5.0) mEq/L Potassium 4.2 (3.5-5.1) mmol/L POC Chloride (101-112) mEq/L Chloride 105 (98-107) mmol/L Carbon Dioxide 25 (21-32) mmol/L POC Total CO2 (24-31) mEq/l Anion Gap 8.0 (3-11) POC Anion Gap (16-25) mmol/L POC BUN (7-18) mg/dl BUN 32 H (7-18) mg/dl Creatinine 0.89 (0.6-1.4) mg/dl POC Creatinine (0.6-1.3) mg/dl Est Cr Clr Drug Dosing 57.6 ml/min Est GFR ( Amer) 93.6 Est GFR (Non-Af Amer) 80.8 BUN/Creatinine Ratio 36.3 H (10-20) Glucose 118 H (70-99) mg/dl POC Glucose (70-99) POC Glucose (other) (70-99) mg/dl Calcium 9.8 (8.5-10.1) mg/dl POC Ioniz Calcium Nicole (1.12-1.32) mmol/l Magnesium 2.3 (1.8-2.4) mg/dl Total Bilirubin 0.4 (0.2-1) mg/dl AST 23 (15-37) U/L ALT 27 (12-78) U/L Alkaline Phosphatase 94 (45-117) U/L Troponin I < 0.015 (0-0.045) ng/ml Total Protein 7.4 (6.4-8.2) gm/dl Albumin 3.4 (3.4-5.0) gm/dl Globulin 4.0 (2.5-4.0) gm/dl Albumin/Globulin Ratio 0.8 L (0.9-2) TSH 2.440 (0.300-4.500) uIu/ml Blood Type Antibody Screen 12/28/18 12/28/18 12/28/18 Range/Units 21:23 21:23 21:25 WBC (4.8-10.8) K/uL RBC (4.7-6.1) M/uL Hgb (14.0-18.0) g/dL POC Hgb 13.9 L (14.0-18.0) g/dl Hct (42-52) % POC Hct 41 L (42-52) % MCV (80-100) fL MCH (25-34) pg MCHC (32-36) g/dL RDW Std Deviation (36.4-46.3) fL RDW Coeff of Laura (11.5-14.5) % Plt Count (130-400) K/uL MPV (7.4-10.4) fL Immature Gran % (Auto) % Neut % (Auto) % Lymph % (Auto) % Frio % (Auto) % Eos % (Auto) % Baso % (Auto) % Immature Gran # (Auto) (0.00-0.02) K/uL Neut # (Auto) (1.4-6.5) K/uL Lymph # (Auto) (1.2-3.4) K/uL Frio # (Auto) (0.11-0.59) K/uL Eos # (Auto) (0-0.5) K/uL Baso # (Auto) (0-0.2) K/uL PT (9.0-12.0) Seconds POC INR 1.8 H (0.9-1.1) INR (0.9-1.1) APTT (21.0-31.0) Seconds PTT Ratio POC Sodium 138 (135-144) mEq/L Sodium (136-145) mmol/L POC Potassium 4.1 (3.3-5.0) mEq/L Potassium (3.5-5.1) mmol/L POC Chloride 103 (101-112) mEq/L Chloride (98-107) mmol/L Carbon Dioxide (21-32) mmol/L POC Total CO2 21 L (24-31) mEq/l Anion Gap (3-11) POC Anion Gap 19.0 (16-25) mmol/L POC BUN 31 H (7-18) mg/dl BUN (7-18) mg/dl Creatinine (0.6-1.4) mg/dl POC Creatinine 0.8 (0.6-1.3) mg/dl Est Cr Clr Drug Dosing ml/min Est GFR ( Amer) Est GFR (Non-Af Amer) BUN/Creatinine Ratio (10-20) Glucose (70-99) mg/dl POC Glucose 117 H (70-99) POC Glucose (other) 130 H (70-99) mg/dl Calcium (8.5-10.1) mg/dl POC Ioniz Calcium Nicole 1.21 (1.12-1.32) mmol/l Magnesium (1.8-2.4) mg/dl Total Bilirubin (0.2-1) mg/dl AST (15-37) U/L ALT (12-78) U/L Alkaline Phosphatase (45-117) U/L Troponin I (0-0.045) ng/ml Total Protein (6.4-8.2) gm/dl Albumin (3.4-5.0) gm/dl Globulin (2.5-4.0) gm/dl Albumin/Globulin Ratio (0.9-2) TSH (0.300-4.500) uIu/ml Blood Type Antibody Screen 12/28/18 Range/Units 21:47 WBC (4.8-10.8) K/uL RBC (4.7-6.1) M/uL Hgb (14.0-18.0) g/dL POC Hgb (14.0-18.0) g/dl Hct (42-52) % POC Hct (42-52) % MCV (80-100) fL MCH (25-34) pg MCHC (32-36) g/dL RDW Std Deviation (36.4-46.3) fL RDW Coeff of Laura (11.5-14.5) % Plt Count (130-400) K/uL MPV (7.4-10.4) fL Immature Gran % (Auto) % Neut % (Auto) % Lymph % (Auto) % Frio % (Auto) % Eos % (Auto) % Baso % (Auto) % Immature Gran # (Auto) (0.00-0.02) K/uL Neut # (Auto) (1.4-6.5) K/uL Lymph # (Auto) (1.2-3.4) K/uL Frio # (Auto) (0.11-0.59) K/uL Eos # (Auto) (0-0.5) K/uL Baso # (Auto) (0-0.2) K/uL PT (9.0-12.0) Seconds POC INR (0.9-1.1) INR (0.9-1.1) APTT (21.0-31.0) Seconds PTT Ratio POC Sodium (135-144) mEq/L Sodium (136-145) mmol/L POC Potassium (3.3-5.0) mEq/L Potassium (3.5-5.1) mmol/L POC Chloride (101-112) mEq/L Chloride (98-107) mmol/L Carbon Dioxide (21-32) mmol/L POC Total CO2 (24-31) mEq/l Anion Gap (3-11) POC Anion Gap (16-25) mmol/L POC BUN (7-18) mg/dl BUN (7-18) mg/dl Creatinine (0.6-1.4) mg/dl POC Creatinine (0.6-1.3) mg/dl Est Cr Clr Drug Dosing ml/min Est GFR ( Amer) Est GFR (Non-Af Amer) BUN/Creatinine Ratio (10-20) Glucose (70-99) mg/dl POC Glucose (70-99) POC Glucose (other) (70-99) mg/dl Calcium (8.5-10.1) mg/dl POC Ioniz Calcium Nicole (1.12-1.32) mmol/l Magnesium (1.8-2.4) mg/dl Total Bilirubin (0.2-1) mg/dl AST (15-37) U/L ALT (12-78) U/L Alkaline Phosphatase (45-117) U/L Troponin I (0-0.045) ng/ml Total Protein (6.4-8.2) gm/dl Albumin (3.4-5.0) gm/dl Globulin (2.5-4.0) gm/dl Albumin/Globulin Ratio (0.9-2) TSH (0.300-4.500) uIu/ml Blood Type O Positive Antibody Screen NEGATIVE Imaging Data Radiologist's Impression: Radiology results as stated below per my review and the radiologist's interpretation: CT SCAN OF THE BRAIN WITHOUT IV CONTRAST CLINICAL HISTORY: Headache. Stroke like symptoms. COMPARISON STUDY: CT of the brain dated 11/15/2018. TECHNIQUE: Unenhanced axial CT scan of the brain is performed from the vertex to the skull base. A dose lowering technique was utilized adhering to the principles of ALARA. CT DOSE: 537.48 mGy.cm FINDINGS: Brain parenchyma: There are age-related involutional changes noting mild subcortical and periventricular microangiopathic change. There is no hemorrhage, mass effect, or evidence of acute territorial ischemia by CT criteria. A small chronic lacunar infarct is identified in the right caudate head. Wolfe-white ma tter differentiation is preserved. No extra-axial fluid collection is seen. Ventricles, sulci, cisterns: Prominent secondary to involutional change. Intracranial vasculature: There is atherosclerotic calcification of the cavernous carotid arteries. Calvarium: Unremarkable. Sinuses and mastoids: The visualized paranasal sinuses are clear. The mastoid air cells are well pneumatized. Orbits: The bony orbits are grossly intact. There are bilateral ocular lens implants. IMPRESSION: There is no hemorrhage, mass effect, or evidence of acute territorial ischemia by CT criteria. Electronically signed by: Krystian Acuna M.D. 12/28/2018 9:45 PM ECG Data Attestation: I personally reviewed and interpreted this ECG as follows: Indication: weakness Rate (beats per minute): 53 Rhythm: sinus rhythm Findings: + other (AR, QRS, and QTc intervals within normal limits); no ST depression and no ST elevation Blood Pressure Blood Pressure Findings: Elevated blood pressure Blood Pressure Disposition: further management by hospitalist MDM Narrative 8: The patient was evaluated in room C6, and a complete history and physical examination were performed. Code stroke was not called at this time as the patient was on Coumadin and his symptoms started at 8 AM making him not a candidate for TPA. 2215: Vital signs stable. CT of the head shows no acute ICH. Labs within normal limites. Patient will be admitted for stroke. No TPA given the onset of the symptoms started around 8 AM. I discussed the patient's case with Dr. Yip [facility]. He will evaluate the patient for further management. Impression & Plan Stroke Discharge Plan Visit Data Chief Complaint: Neuro Symptoms/Deficit Stated Complaint: NEURO SYMPTOMS ED Provider: Sharad Partida Discharge Problem: Stroke Patient Disposition: Being Evaluated by Hospitalist Forms Stand Alone Forms: My [facility] Prescriptions Prescriptions: No Action amoxicillin 500 mg Capsule 4 tab PO DIRECTED RF: 0 clonidine HCl [Catapres] 0.1 mg Tablet 0.1 mg PO TID RF: 0 repaglinide [Prandin] 2 mg Tablet 2 mg PO TIDM RF: 0 amiodarone 200 mg Tablet 100 mg PO QAM RF: 0 metoprolol succinate 50 mg Tablet Extended Release 24 Hr 50 mg PO QDL RF: 0 lovastatin 40 mg Tablet 40 mg PO PM RF: 0 warfarin 2.5 mg Tablet 2.5 mg PO 5XWK RF: 0 aspirin [Aspirin Low Dose] 81 mg Tablet,Delayed Release (Dr/Ec) 81 mg PO QDL RF: 0 tramadol 50 mg Tablet 50 mg PO QAM PRN (Reason: Pain) RF: 0 acetaminophen 650 mg Tablet Extended Release 650 mg PO Q12H PRN (Reason: Pain) RF: 0 metronidazole 0.75 % Cream 1 applic TOPICAL BID RF: 0 nitroglycerin [Nitrostat] 0.4 mg Tablet, Sublingual 1 tab sublingual DIRECTED RF: 0 gabapentin 300 mg Capsule 300 mg PO BID RF: 0 digoxin 125 mcg Tablet 125 mcg PO QDL RF: 0 ipratropium bromide 0.03 % [place],Non-Aerosol 2 spray INTRANASAL BID PRN (Reason: BREATHING ISSUES) RF: 0 Januvia 50 mg Tablet 50 mg PO QDL RF: 0 diclofenac sodium 1 % Gel 2 g TOPICAL BID PRN (Reason: Pain) RF: 0 Invokana 300 mg Tablet 300 mg PO QAM RF: 0 tramadol [Ultram] 50 mg tablet 50 mg PO Q6H PRN (Reason: pain) Qty: 40 RF: 0 terazosin 5 mg Capsule 5 mg PO DAILY RF: 0 warfarin 2.5 mg Tablet 1.25 mg PO 2XWK RF: 0 Referrals Referrals: Ron Constantino DO [Primary Care Provider] - Discharge Problem: Stroke Qualifiers: CVA mechanism: unspecified Qualified Code(s): I63.9 - Cerebral infarction, unspecified The scribe's documentation has been prepared under my direction and personally reviewed by me in its entirety. I confirm that the note above accurately reflects all work, treatment, procedures, and medical decision making performed by me.
--- NOTE | 2018-12-28 23:49 | History & Physical Report ---
Date of Service December 28, 2018 Assessment & Plan (1) TIA (transient ischemic attack): Left hand tingling numbness, double vision hx PAF on Coumadin, patient NSR on the bradycardic side, INR slightly subtherapeutic CAD status post CABG history bioprosthetic MVR hypertension, elevated hyperlipidemia on statin Rx DM 2 on oral meds, suboptimal control as of recent inpatient hemoglobin A1c of 8 last October 2018 skin cancer status post surgery prostate cancer status post radiation past tobacco abuse OBS Medical telemetry Neurochecks MRI/MRA of the brain Neurology consult RE left hand tingling numbness, bilateral double vision Additional stroke work-up pending MRI results Permissive hypertension until acute stroke ruled out Basal insulin, ISS BG goal 142/80, carb count coverage DVT prophylaxis. Coumadin INR goal between 2 and 3 Full code Patient son requesting updates from providers. Mr. Fredo Schultz, contact #[phone]. History of Present Illness Chief Complaint: Tingling numbness, left hand Primary Care Provider: Ron Constantino, History obtained from patient, family, and records. Medical history significant for CAD status post CABG, A. fib on Coumadin, history bioprosthetic MVR, hypertension, hyperlipidemia, DM 2 on oral meds, skin cancer status post surgery, prostate cancer status post radiation, past tobacco abuse. Recent confinement under orthopedics service last October 2018 for back surgery. Postop patient noted to be hypotensive. Transient visual disturbances noted. No acute pathology on brain MRI. This morning around 8 AM patient noted left hand tingling numbness. No neck pain. Double vision on both eyes without eye pain improved with covering one eye. No headache, no chest pain, no S OB. No recent trauma. Speech somewhat slurred which happens from time to time as per son. Compliant with home meds. At the ER, left hand tingling numbness currently improving as per patient. 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 Allergies Allergy/AdvReac Type Severity Reaction Status Date / Time pollen extracts Allergy CT sneezing, Verified 12/28/18 22:30 Dust Mite Extract Allergy Mild Sneezing Uncoded 12/28/18 22:30 Home Medications Home Medications Medication Instructions Recorded Confirmed Type Januvia 50 mg PO QDL 10/25/18 12/28/18 History acetaminophen 650 mg PO Q12H PRN 10/25/18 12/28/18 History amiodarone 100 mg PO QAM 10/25/18 12/28/18 History amoxicillin 4 tab PO DIRECTED 10/25/18 12/28/18 History aspirin [Aspirin Low Dose] 81 mg PO QDL 10/25/18 12/28/18 History clonidine HCl [Catapres] 0.1 mg PO TID 10/25/18 12/28/18 History diclofenac sodium 2 g TOPICAL BID PRN 10/25/18 12/28/18 History digoxin 125 mcg PO QDL 10/25/18 12/28/18 History gabapentin 300 mg PO BID 10/25/18 12/28/18 History ipratropium bromide 2 spray INTRANASAL BID PRN 10/25/18 12/28/18 History lovastatin 40 mg PO PM 10/25/18 12/28/18 History metoprolol succinate 50 mg PO QDL 10/25/18 12/28/18 History metronidazole 1 applic TOPICAL BID 10/25/18 12/28/18 History nitroglycerin [Nitrostat] 1 tab SUBLINGUAL DIRECTED 10/25/18 12/28/18 History repaglinide [Prandin] 2 mg PO TIDM 10/25/18 12/28/18 History tramadol 50 mg PO QAM PRN 10/25/18 12/28/18 History warfarin 2.5 mg PO 5XWK 10/25/18 12/28/18 History Invokana 300 mg PO QAM 11/01/18 12/28/18 History tramadol [Ultram] 50 mg PO Q6H PRN #40 tab 11/18/18 12/28/18 Rx terazosin 5 mg PO DAILY 12/28/18 12/28/18 History warfarin 1.25 mg PO 2XWK 12/28/18 12/28/18 History Past Med/Surg History Medical History Atrial fibrillation CAD (coronary artery disease) Cancer PROSTATE - WITH RADIATION Chronic back pain LUMBAR Diabetes mellitus, type 2 Environmental allergies Hearing deficit WEARS HEARING AIDS Hiatal hernia Hyperlipidemia Hypertension Rheumatoid arthritis Rosacea Severe mitral regurgitation Spinal stenosis Surgical History H/O mitral valve replacement with cardiopulmonary bypass History of cardiac cath 11/2017 - [facility] History of cataract surgery BOTH EYES History of tonsillectomy Hx of heart bypass surgery VESSEL X1, MITRAL VALVE REPLACEMENT, ABLATION - ALL DONE AT SAME SURGERY Hx of transesophageal echocardiography (STEVE) for monitoring Social History Preferred Language: Gren[place] Communication Ability: Effective Relief Man Required: No Beliefs That Will Affect Care: None marital status: / Current Living Situation: Family Feels Safe at Home: Yes Safety Concerns: Feels Safe At This Time Smoking Status: Former smoker Hx Alcohol Use: Yes Alcohol type: hard liquor Hx Substance Use: No Review of Systems Review of Systems: As per HPI, all 10 systems reviewed, all other ROS negative Physical Exam Physical Exam: GENERAL: Slightly anxious, slightly hard of hearing, no respiratory distress, mild dysarthria SKIN: Pallor , warm HEENT: Bespectacled, pale palpebral conjunctivae, no ptosis, dry buccal mucosa NECK : Supple, no tenderness CHEST : Healed sternal scar, CTA, no tenderness HEART : Bradycardic, systolic murmur ABDOMEN: Soft, nontender EXTREMITIES : No LE swelling/tenderness, no other conspicuous deformities noted NEUROLOGIC : Coherent, no facial asymmetry, mild dysarthria, no other gross focality Results & Data Vital Signs (Past 12 Hours) Vital Signs Temp Pulse Resp BP Pulse Ox 12/28/18 23:01 55 L 15 97 12/28/18 23:00 58 L 18 168/87 H 99 12/28/18 22:50 60 19 100 12/28/18 22:40 62 28 H 97 12/28/18 22:30 51 L 18 147/78 H 98 12/28/18 22:23 50 L 19 147/75 H 98 12/28/18 22:20 48 L 16 98 12/28/18 22:10 46 L 21 98 12/28/18 22:02 61 19 97 12/28/18 22:00 54 L 15 99 12/28/18 21:51 48 L 16 97 12/28/18 21:49 50 L 24 157/85 H 97 12/28/18 21:48 55 L 23 12/28/18 21:20 50 L 18 100 12/28/18 21:16 58 L 18 99 12/28/18 21:14 60 16 160/87 H 99 12/28/18 21:02 36.7 C 60 18 160/87 H 99 Laboratory Results Laboratory Results WBC 7.21 K/uL (4.8-10.8) 12/28/18 20:47 RBC 4.33 M/uL (4.7-6.1) L 12/28/18 20:47 Hgb 13.7 g/dL (14.0-18.0) L 12/28/18 20:47 POC Hgb 13.9 g/dl (14.0-18.0) L 12/28/18 21:25 Hct 41.6 % (42-52) L 12/28/18 20:47 POC Hct 41 % (42-52) L 12/28/18 21:25 MCV 96.1 fL (80-100) 12/28/18 20:47 MCH 31.6 pg (25-34) 12/28/18 20:47 MCHC 32.9 g/dL (32-36) 12/28/18 20:47 RDW Std Deviation 50.1 fL (36.4-46.3) H 12/28/18 20:47 RDW Coeff of Laura 14.2 % (11.5-14.5) 12/28/18 20:47 Plt Count 238 K/uL (130-400) 12/28/18 20:47 MPV 10.0 fL (7.4-10.4) 12/28/18 20:47 Immature Gran % (Auto) 0.4 % 12/28/18 20:47 Neut % (Auto) 59.3 % 12/28/18 20:47 Lymph % (Auto) 26.9 % 12/28/18 20:47 [place] % (Auto) 11.2 % 12/28/18 20:47 Eos % (Auto) 1.9 % 12/28/18 20:47 Baso % (Auto) 0.3 % 12/28/18 20:47 Immature Gran # (Auto) 0.03 K/uL (0.00-0.02) H 12/28/18 20:47 Neut # (Auto) 4.27 K/uL (1.4-6.5) 12/28/18 20:47 Lymph # (Auto) 1.94 K/uL (1.2-3.4) 12/28/18 20:47 [place] # (Auto) 0.81 K/uL (0.11-0.59) H 12/28/18 20:47 Eos # (Auto) 0.14 K/uL (0-0.5) 12/28/18 20:47 Baso # (Auto) 0.02 K/uL (0-0.2) 12/28/18 20:47 PT 17.1 Seconds (9.0-12.0) H 12/28/18 20:47 POC INR 1.8 (0.9-1.1) H 12/28/18 21:23 INR 1.7 (0.9-1.1) H 12/28/18 20:47 APTT 33.2 Seconds (21.0-31.0) H 12/28/18 20:47 PTT Ratio 1.2 12/28/18 20:47 POC Sodium 138 mEq/L (135-144) 12/28/18 21:25 Sodium 139 mmol/L (136-145) 12/28/18 20:47 POC Potassium 4.1 mEq/L (3.3-5.0) 12/28/18 21:25 Potassium 4.2 mmol/L (3.5-5.1) 12/28/18 20:47 POC Chloride 103 mEq/L (101-112) 12/28/18 21:25 Chloride 105 mmol/L (98-107) 12/28/18 20:47 Carbon Dioxide 25 mmol/L (21-32) 12/28/18 20:47 POC Total CO2 21 mEq/l (24-31) L 12/28/18 21:25 8.0 (3-11) 12/28/18 20:47 POC Anion Gap 19.0 mmol/L (16-25) 12/28/18 21:25 POC BUN 31 mg/dl (7-18) H 12/28/18 21:25 BUN 32 mg/dl (7-18) H 12/28/18 20:47 0.89 mg/dl (0.6-1.4) 12/28/18 20:47 POC Creatinine 0.8 mg/dl (0.6-1.3) 12/28/18 21:25 Est Cr Clr Drug Dosing 57.6 ml/min 12/28/18 20:47 Est GFR ( Amer) 93.6 12/28/18 20:47 Est GFR (Non-Af Amer) 80.8 12/28/18 20:47 36.3 (10-20) H 12/28/18 20:47 Glucose 118 mg/dl (70-99) H 12/28/18 20:47 POC Glucose 117 (70-99) H 12/28/18 21:23 POC Glucose (other) 130 mg/dl (70-99) H 12/28/18 21:25 Calcium 9.8 mg/dl (8.5-10.1) 12/28/18 20:47 POC Ioniz Calcium Nicole 1.21 mmol/l (1.12-1.32) 12/28/18 21:25 Magnesium 2.3 mg/dl (1.8-2.4) 12/28/18 20:47 0.4 mg/dl (0.2-1) 12/28/18 20:47 AST 23 U/L (15-37) 12/28/18 20:47 ALT 27 U/L (12-78) 12/28/18 20:47 94 U/L (45-117) 12/28/18 20:47 < 0.015 ng/ml (0-0.045) 12/28/18 20:47 7.4 gm/dl (6.4-8.2) 12/28/18 20:47 3.4 gm/dl (3.4-5.0) 12/28/18 20:47 4.0 gm/dl (2.5-4.0) 12/28/18 20:47 0.8 (0.9-2) L 12/28/18 20:47 TSH 2.440 uIu/ml (0.300-4.500) 12/28/18 20:47 Digoxin 1.2 ng/ml (0.8-2.0) 12/28/18 20:47 Blood Type O Positive 12/28/18 21:47 Antibody Screen NEGATIVE 12/28/18 21:[address] head: There is no hemorrhage, mass effect, or evidence of acute territorial ischemia by CT criteria. EKG as per my interpretation rate 55, sinus bradycardia, T wave flattening inferior leads
[2018-12-29 00:31] LABS: Lyme Ab IgG w/WB Rflx Negative (Negative); Lyme Ab IgM w/WB Rflx Negative (Negative)
[2018-12-29] MEDS ORDERED: GLUCOSE 10 TABS/TUBE PO PRN (00:49)
[2018-12-29] MEDS ORDERED: PHARMACIST DISCHARGE MED REC CONSULT PRN (00:49)
[2018-12-29] MEDS ORDERED: PROMETHAZINE HCL 12.5 MG in SODIUM CHLORIDE 0.9% 50 ML IV PRN (00:49)
[2018-12-29] MEDS ORDERED: GLUCAGON FOR INJ 1 MG VIAL SQ PRN (00:49)
[2018-12-29] MEDS ORDERED: GLUCOSE 40% GEL 15 GM TUBE PO PRN (00:49)
[2018-12-29] MEDS ORDERED: TRAMADOL HCL 50 MG TABLET PO PRN (00:49)
[2018-12-29] MEDS ORDERED: SODIUM CHLORIDE 0.9% 1000ML 1,000 ML IV ONE (00:49)
[2018-12-29] MEDS ORDERED: CARBOHYDRATES FOR HYPOGLYCEMIA PO PRN (00:49)
[2018-12-29] MEDS ORDERED: DEXTROSE 50% 50 ML SYRINGE IV PRN (00:49)
[2018-12-29] MEDS ORDERED: INSULIN GLARGINE SOLOSTAR 100 UNITS/ML 3 ML PEN SQ STA (01:14)
[2018-12-29] MEDS ORDERED: ACETAMINOPHEN 325 MG TAB PO PRN (01:17)
[2018-12-29] MEDS: GABAPENTIN 300 MG CAP PO SCH ×3 (01:34→20:27)
[2018-12-29] MEDS: INSULIN ASPART 100 UNITS/ML 3 ML PEN SC SCH ×5 (01:34→21:48)
--- NOTE | 2018-12-29 07:43 | Magnetic Resonance Report ---
MRI OF THE BRAIN WITHOUT CONTRAST CLINICAL HISTORY: Transient ischemic attack. Visual disturbances. Left hand tingling. COMPARISON STUDY: MRI of the brain November 16, 2018. Head CT December 28, 2018. TECHNIQUE: Utilizing a 1.5 Ruth magnet and dedicated coil, multiplanar, multiecho imaging of the bra in was performed without IV contrast. FINDINGS: Note is made of a subtle focus of increased signal intensity within the right aspect of the wang on the diffusion-weighted sequence, axial 7 of 46. This measures 2.2 x 0.8 x 0.3 cm per there i s mild corresponding FLAIR signal abnormality. Ventricular system is stable. Basilar cisterns are pat ent. There are no extra axial collections. Flow-voids for the major intracranial vessels are present. No acute intracranial hemorrhage, midline shift or mass effect is present. Calvarial signal is roxana l. IMPRESSION: Subtle foci of restricted diffusion within the right aspect of the wang, measuring 2.2 x 0.8 x 0.3 cm in extent. The findings suggest a small acute infarct. No mass effect. No hemorrhage. Electronically signed by: Abdifatah Maynard M.D. 12/29/2018 7:42 AM
[2018-12-29 07:44] LABS: Basophils # (auto) 0.04 K/uL (0-0.2); Basophils % (auto) 0.6 %; Eosinophils # (auto) 0.18 K/uL (0-0.5); Eosinophils % (auto) 2.5 %; Hematocrit (blood only) 39.4 % (42-52); Hemoglobin 13.1 g/dL (14.0-18.0); Immature Granulocytes # (auto) 0.03 K/uL (0.00-0.02); Immature Granulocytes % (auto) 0.4 %; Lymphocytes # (auto) 1.92 K/uL (1.2-3.4); Lymphocytes % (auto) 26.7 %; Mean Corpuscular Hgb Conc 33.2 g/dL (32-36); Mean Corpuscular Volume 96.1 fL (80-100); Mean Platelet Volume 9.6 fL (7.4-10.4); Monocytes # (auto) 1.02 K/uL (0.11-0.59); Monocytes % (auto) 14.2 %; Neutrophils % (auto) 55.6 %; Platelet Count 216 K/uL (130-400); RDW Coefficient of Variation 14.3 % (11.5-14.5); White Blood Count 7.19 K/uL (4.8-10.8)
--- NOTE | 2018-12-29 07:46 | Magnetic Resonance Report ---
Brain MRA HISTORY: Left hand paresthesias. Double vision. TECHNIQUE: 3-D [id number] MRA of the brain was performed without contrast. COMPARISON STUDY: Brain MRI 11/16/2018. FINDINGS: Visualized intracranial internal carotid arteries, distal vertebral arteries, and basilar a rtery are widely patent. There is no significant stenosis, occlusion, or aneurysm seen within the ashley ateral ACAs, MCAs, or metal cut off saw tender. There is a hypoplastic right vertebral artery which terminates into the r ight posterior inferior cerebellar artery. This is considered to be a normal variant. IMPRESSION: No significant stenosis, occlusion, or aneurysm within the [place]. Electronically signed by: Galindo Knapp M.D. 12/29/2018 7:44 AM
[2018-12-29 07:55] LABS: INR 1.8 (0.9-1.1); Prothrombin Time 17.3 Seconds (9.0-12.0)
[2018-12-29] MEDS: AMIODARONE 200 MG TAB PO SCH (08:08)
[2018-12-29 08:15] LABS: BUN Creatinine Ratio 30.4 (10-20); Calcium 9.1 mg/dl (8.5-10.1); Creatinine Clr Calc Pharmacy 55.1 ml/min; Est GFR (African American) 89.5; Est GFR (Non-African American) 77.3; Potassium 3.8 mmol/L (3.5-5.1)
--- NOTE | 2018-12-29 08:17 | Hospitalist Progress Note ---
Date of Service December 29, 2018 Assessment & Plan (1) Stroke: SMALL ACUTE PONTINE INFARCT Patient presented with left hand tingling numbness, double vision. Had double vision during last stay post operatively when MRI, CT did not show any acute findings Risk factors: Hx PAF on Coumadin, INR slightly subtherapeutic -CT scan - No acute findings, MRI brain - small acute infarct in wang -Continue on ASA 81 mg daily, on coumadin with slightly subtherapeutic INR. On lovastatin 40 mg HS, -Work up- MRA head/neck -negative for stenosis, LDL 90 (Goal<70) -Neurology consulted -PT/OT consulted CAD status post CABG history bioprosthetic MVR -Continue with aspirin, Coumadin, lisinopril, Toprol-XL HTN -Permissive hypertension -Continue with Toprol-XL with holding parameters. hELD LISINOPRIL HYPERLIPIDEMIA -Continue with hyperlipidemia DM 2 on oral meds, suboptimal control as of recent inpatient hemoglobin A1c of 8 last October 2018 SKIN CANCER POST SURGERY PROSTATE CARCINOMA S/P RADIATION DVT prophylaxis. Coumadin INR goal between 2 and 3 Full code DISPOSITION Observation status--> inpatient status now with acute stroke PT/OT ordered Patient son requesting updates from providers. Mr. Fredo Schultz, contact #[phone] Subjective Patient is feeling much better. Double vision, left hand tingling, numbness has resolved. Patient has no new symptoms. No headache, nausea, vomiting, fever, chills. Physical Exam Physical Exam: GENERAL- AAOX3, No acute distress HEAD- Atraumatic, Normocephalic EYES- No pallor, icterus, redness, discharge. Pupils are equal, round, reactive to light and accomodation. EARS- Normal pinna, no discharge, tenderness noted NOSE- No nasal discharge noted NECK- Supple, no JVD LUNGS- Air entry bilaterally equal. No rales, rhonchi, crackles, wheezes heard. HEART- Regular rate and rhythm. No murmurs ABDOMEN- Soft, non tender, non distended, Bowel sounds heard. EXTREMITIES- Good peripheral pulses, no edema NEUROMUSCULAR- AAOX3, cranial nervesintact, power5/5 all extremities Results & Data Vital Signs (Past 12 Hours) Vital Signs Temp Pulse Pulse Resp BP BP Pulse Ox 12/29/18 07:59 37.0 C 71 19 118/78 97 12/29/18 04:00 36.8 C 65 17 143/83 H 95 12/29/18 00:36 36.6 C 63 20 165/76 H 97 12/29/18 00:16 52 L 18 170/89 H 99 12/29/18 00:02 20 170/66 H 99 12/29/18 00:00 16 95 12/28/18 23:30 17 146/75 H 98 12/28/18 23:01 55 L 15 97 12/28/18 23:00 58 L 18 168/87 H 99 12/28/18 22:50 60 19 100 12/28/18 22:40 62 28 H 97 12/28/18 22:30 51 L 18 147/78 H 98 12/28/18 22:23 50 L 19 147/75 H 98 12/28/18 22:20 48 L 16 98 12/28/18 22:10 46 L 21 98 12/28/18 22:02 61 19 97 12/28/18 22:00 54 L 15 99 12/28/18 21:51 48 L 16 97 12/28/18 21:49 50 L 24 157/85 H 97 12/28/18 21:48 55 L 23 12/28/18 21:20 50 L 18 100 12/28/18 21:16 58 L 18 99 12/28/18 21:14 60 16 160/87 H 99 12/28/18 21:02 36.7 C 60 18 160/87 H 99 (1) Stroke CVA mechanism: unspecified Qualified Code(s): I63.9 - Cerebral infarction, unspecified
[2018-12-29] MEDS ORDERED: INSULIN GLARGINE SOLOSTAR 100 UNITS/ML 3 ML PEN SQ SCH (09:00)
[2018-12-29] MEDS: METOPROLOL SUCC 50MG EXT REL TAB PO SCH (14:10)
[2018-12-29] MEDS: ASPIRIN 81 MG ECTAB PO SCH (14:10)
[2018-12-29] MEDS: DIGOXIN 0.125 MG TAB PO SCH (14:10)
--- NOTE | 2018-12-29 14:37 | Neurology Consultation ---
Date of Consultation December 29, 2018 Assessment & Plan (1) Stroke: 1. MRI stroke R wang 2. INR - therapeutic 2.0-3.0 3. aspirin 81 mg continue 4. PT/OT speech does not seem to be any needs 5. optimize HTN, HLD, DM LDL <70 6. follow with [facility] to optimize level 7. ophthalmology as outpatient to clear for driving 8. TTE - done on previous work up no need to repeat 9. discharge ok once medically stable will see in our clinic 2-4 weeks Jacqueline Hunter PAC schedule Supervising Physician Co-Signing Physician Notes I have seen and discussed above patient with Dr Max Rowell, neurology I have seen Mr. Mr. Schultz today evaluated him clinically reviewed his imaging studies and have discussed his case with Jacqueline Hunter and Dr. 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 His INR is subtherapeutic. History hours suggest more of a localized intracranial small vessel event rather than an embolic affair. It would be hard to distinguish purely on the basis of history however At this point done he is going to have a very limited bridging with Lovenox until his Coumadin and INR get more into the therapeutic range and we are going to continue the aspirin which should provide some measure of control of localized intracranial small vessel disease At this point once his INR is in the good range he could be discharged and follow-up with neurology as outlined above We are going to sign off however I would be happy to see him if anything changes during the remainder of his hospital stay Max Rowell MD History of Present Illness Reason for Consultation: TIA/CVA Requesting Physician: Kiki Howell MD Attending Physician: Kiki Howell History of Present Illness Cale is a 78 year old male who has a PMH HTN, DM 2, HLD, PAR, prostrate CA, CHF , valvular heart disease. He had an episode of double vision and tingling in his left hand which has now resolved. He was seen during his past admisson on 11/14/2018 for a laminectomy, foraminotomy, partial facetectomy, decompression in the nerve structures, L3-L4, L4-L5, L5-S1. Today he had an episode while sitting in bedside chair had an episode of bright vision and blue fuzzy vision with a blood pressure of 84/56. He states this lasted about 1/2 hour and resolved. His blood pressure is still low but he has not had any further episodes. He had a CT head which showed an old infarct. He states all the symptoms have resolved and his coumadin had been supra therapeutic and they decreased it and then was 1.7 on admission. Currently he just wants to go home. denies CP, SOB, abdominal pain, N, V, headache, current vision changes. Allergies Allergy/AdvReac Type Severity Reaction Status Date / Time pollen extracts Allergy [place] sneezing, Verified 12/28/18 22:30 Dust Mite Extract Allergy Mild Sneezing Uncoded 12/28/18 22:30 Home Medications Home Medications Medication Instructions Recorded Confirmed Type Januvia 50 mg PO QDL 10/25/18 12/28/18 History acetaminophen 650 mg PO Q12H PRN 10/25/18 12/28/18 History amiodarone 100 mg PO QAM 10/25/18 12/28/18 History amoxicillin 4 tab PO DIRECTED 10/25/18 12/28/18 History aspirin [Aspirin Low Dose] 81 mg PO QDL 10/25/18 12/28/18 History clonidine HCl [Catapres] 0.1 mg PO TID 10/25/18 12/28/18 History diclofenac sodium 2 g TOPICAL BID PRN 10/25/18 12/28/18 History digoxin 125 mcg PO QDL 10/25/18 12/28/18 History gabapentin 300 mg PO BID 10/25/18 12/28/18 History ipratropium bromide 2 spray INTRANASAL BID PRN 10/25/18 12/28/18 History lovastatin 40 mg PO PM 10/25/18 12/28/18 History metoprolol succinate 50 mg PO QDL 10/25/18 12/28/18 History metronidazole 1 applic TOPICAL BID 10/25/18 12/28/18 History nitroglycerin [Nitrostat] 1 tab SUBLINGUAL DIRECTED 10/25/18 12/28/18 History repaglinide [Prandin] 2 mg PO TIDM 10/25/18 12/28/18 History tramadol 50 mg PO QAM PRN 10/25/18 12/28/18 History warfarin 2.5 mg PO 5XWK 10/25/18 12/28/18 History Invokana 300 mg PO QAM 11/01/18 12/28/18 History tramadol [Ultram] 50 mg PO Q6H PRN #40 tab 11/18/18 12/28/18 Rx terazosin 5 mg PO DAILY 12/28/18 12/28/18 History warfarin 1.25 mg PO 2XWK 12/28/18 12/28/18 History Patient History Medical History Atrial fibrillation CAD (coronary artery disease) Cancer PROSTATE - WITH RADIATION Chronic back pain LUMBAR Diabetes mellitus, type 2 Environmental allergies Hearing deficit WEARS HEARING AIDS Hiatal hernia Hyperlipidemia Hypertension Rheumatoid arthritis Rosacea Severe mitral regurgitation Spinal stenosis Surgical History H/O mitral valve replacement with cardiopulmonary bypass History of cardiac cath 11/2017 - [facility] History of cataract surgery BOTH EYES History of tonsillectomy Hx of heart bypass surgery VESSEL X1, MITRAL VALVE REPLACEMENT, ABLATION - ALL DONE AT SAME SURGERY Hx of transesophageal echocardiography (STEVE) for monitoring Social History Preferred Language: Salvadorean Communication Ability: Effective Production Potter Required: No Beliefs That Will Affect Care: None marital status: / Current Living Situation: Family Feels Safe at Home: Yes Safety Concerns: Feels Safe At This Time Smoking Status: Former smoker Hx Alcohol Use: Yes Alcohol type: hard liquor Hx Substance Use: No Physical Exam Physical Exam: Physical Exam: Constitutional: appearance nourished, healthy and normal Ears, Nose, Mouth and Throat: mucous membranes moist, no injection and skin normal, eyes normal Cardiovascular: irregular Respiratory: course breath sounds Musculoskeletal: no peripheral edema Skin: no stigmata of neurocutaneous disease noted and normal and intact Eyes: extraocular muscles intact (EOMI) and pupils equal, round and reactive to light (PERRL) gross peripheral vision intact NEUROLOGIC EXAMINATION: Mental status: Alert and interactive Oriented to full date and location Oriented to person Speech fluent with no evidence of aphasia Cranial Nerves smile eye brow raise symmetric Reflexes: Deep tendon reflexes were symmetrical and graded 2/5. Sensory: intact to light cool touch Coordination: finger to nose Gait/Stance: Posture normal. Gait normal: with steady with steps, base, turning, heel and toe walking and tandem gait. Motor: Negative for pronator drift of out stretched arms with eyes closed. Strength: Normal - 5/5 all extremities Results & Data Vital Signs (Past 12 Hours) Vital Signs Temp Pulse Pulse Resp BP Pulse Ox 12/29/18 14:10 61 12/29/18 14:06 62 137/84 12/29/18 11:39 36.4 C L 59 L 20 143/79 H 98 12/29/18 08:00 75 12/29/18 07:59 37.0 C 71 19 118/78 97 12/29/18 04:00 36.8 C 65 17 143/83 H 95 Laboratory Results Abnormal lab results 12/28/18 12/28/18 12/28/18 Range/Units 20:47 20:47 20:47 RBC 4.33 L (4.7-6.1) M/uL Hgb 13.7 L (14.0-18.0) g/dL POC Hgb (14.0-18.0) g/dl Hct 41.6 L (42-52) % POC Hct (42-52) % RDW Std Deviation 50.1 H (36.4-46.3) fL Immature Gran # (Auto) 0.03 H (0.00-0.02) K/uL [place] # (Auto) 0.81 H (0.11-0.59) K/uL PT 17.1 H (9.0-12.0) Seconds POC INR (0.9-1.1) INR 1.7 H (0.9-1.1) APTT 33.2 H (21.0-31.0) Seconds Chloride (98-107) mmol/L POC Total CO2 (24-31) mEq/l POC BUN (7-18) mg/dl BUN 32 H (7-18) mg/dl BUN/Creatinine Ratio 36.3 H (10-20) Glucose 118 H (70-99) mg/dl POC Glucose (70-99) POC Glucose (other) (70-99) mg/dl Albumin/Globulin Ratio 0.8 L (0.9-2) Triglycerides (0-150) mg/dl 12/28/18 12/28/18 12/28/18 Range/Units 21:23 21:23 21:25 RBC (4.7-6.1) M/uL Hgb (14.0-18.0) g/dL POC Hgb 13.9 L (14.0-18.0) g/dl Hct (42-52) % POC Hct 41 L (42-52) % RDW Std Deviation (36.4-46.3) fL Immature Gran # (Auto) (0.00-0.02) K/uL [place] # (Auto) (0.11-0.59) K/uL PT (9.0-12.0) Seconds POC INR 1.8 H (0.9-1.1) INR (0.9-1.1) APTT (21.0-31.0) Seconds Chloride (98-107) mmol/L POC Total CO2 21 L (24-31) mEq/l POC BUN 31 H (7-18) mg/dl BUN (7-18) mg/dl BUN/Creatinine Ratio (10-20) Glucose (70-99) mg/dl POC Glucose 117 H (70-99) POC Glucose (other) 130 H (70-99) mg/dl Albumin/Globulin Ratio (0.9-2) Triglycerides (0-150) mg/dl 12/29/18 12/29/18 12/29/18 Range/Units 00:56 07:18 07:18 RBC 4.10 L (4.7-6.1) M/uL Hgb 13.1 L (14.0-18.0) g/dL POC Hgb (14.0-18.0) g/dl Hct 39.4 L (42-52) % POC Hct (42-52) % RDW Std Deviation 50.0 H (36.4-46.3) fL Immature Gran # (Auto) 0.03 H (0.00-0.02) K/uL [place] # (Auto) 1.02 H (0.11-0.59) K/uL PT 17.3 H (9.0-12.0) Seconds POC INR (0.9-1.1) INR 1.8 H (0.9-1.1) APTT (21.0-31.0) Seconds Chloride (98-107) mmol/L POC Total CO2 (24-31) mEq/l POC BUN (7-18) mg/dl BUN (7-18) mg/dl BUN/Creatinine Ratio (10-20) Glucose (70-99) mg/dl POC Glucose 162 H (70-99) POC Glucose (other) (70-99) mg/dl Albumin/Globulin Ratio (0.9-2) Triglycerides (0-150) mg/dl 12/29/18 12/29/18 12/29/18 Range/Units 07:18 07:29 11:29 RBC (4.7-6.1) M/uL Hgb (14.0-18.0) g/dL POC Hgb (14.0-18.0) g/dl Hct (42-52) % POC Hct (42-52) % RDW Std Deviation (36.4-46.3) fL Immature Gran # (Auto) (0.00-0.02) K/uL [place] # (Auto) (0.11-0.59) K/uL PT (9.0-12.0) Seconds POC INR (0.9-1.1) INR (0.9-1.1) APTT (21.0-31.0) Seconds Chloride 109 H (98-107) mmol/L POC Total CO2 (24-31) mEq/l POC BUN (7-18) mg/dl BUN 28 H (7-18) mg/dl BUN/Creatinine Ratio 30.4 H (10-20) Glucose 135 H (70-99) mg/dl POC Glucose 137 H 152 H (70-99) POC Glucose (other) (70-99) mg/dl Albumin/Globulin Ratio (0.9-2) Triglycerides 200 H (0-150) mg/dl Diagnostic Findings MRI brain-Subtle foci of restricted diffusion within the right aspect of the wang, measuring 2.2 x 0.8 x 0.3 cm in extent. The findings suggest a small acute infarct. No mass effect. No hemorrhage. MRA brain- No significant stenosis, occlusion, or aneurysm within the [place]. (1) Stroke CVA mechanism: unspecified Qualified Code(s): I63.9 - Cerebral infarction, unspecified
[2018-12-29] MEDS ORDERED: ENOXAPARIN 1 MG/KG SQ SCH (17:15)
[2018-12-29] MEDS ORDERED: WARFARIN SOD 2.5 MG TAB PO SCH (17:30)
[2018-12-29] MEDS ORDERED: ENOXAPARIN 80 MG/0.8 ML SYR SQ SCH (21:00)
[2018-12-29] MEDS ORDERED: LOVASTATIN 20 MG TAB PO SCH (21:00)
[2018-12-30 06:57] LABS: Prothrombin Time 19.1 Seconds (9.0-12.0)
[2018-12-30] MEDS: AMIODARONE 200 MG TAB PO SCH (08:36)
[2018-12-30] MEDS: GABAPENTIN 300 MG CAP PO SCH (08:37)
[2018-12-30] MEDS: INSULIN ASPART 100 UNITS/ML 3 ML PEN SC SCH (08:40)
[2018-12-30] MEDS ORDERED: INSULIN GLARGINE SOLOSTAR 100 UNITS/ML 3 ML PEN SQ SCH (09:00)
--- NOTE | 2018-12-30 11:53 | Hospitalist Progress Note ---
Date of Service December 30, 2018 Assessment & Plan (1) Stroke: SMALL ACUTE PONTINE INFARCT Patient presented with left hand tingling numbness, double vision. Had double vision during last stay post operatively when MRI, CT did not show any acute findings. Risk factors: Hx PAF on Coumadin, INR slightly subtherapeutic -CT scan - No acute findings, MRI brain - small acute infarct in wang -Continue on ASA 81 mg daily. Gave a dose of Lovenox yesterday as INR 1.8. Now 2.0---> Continue with coumadin -Work up- MRA head/neck -negative for stenosis, LDL 90 (Goal<70); Echo done during recent admission so not repeated -Neurology consulted. Appreciate inputs. No new changes -PT/OT consultedno further recommendations CAD status post CABG history bioprosthetic MVR -Continue with aspirin, Coumadin, lisinopril, Toprol-XL HTN -Permissive hypertension -Continue with Toprol-XL with holding parameters. Restart lisinopril HYPERLIPIDEMIA -Continue with hyperlipidemia -Goal--LDL 70--> Will change to Atorvastatin 40 mg q HS from Lovastatin q HS DM 2 on oral meds, suboptimal control as of recent inpatient hemoglobin A1c of 8 last October 2018 SKIN CANCER POST SURGERY PROSTATE CARCINOMA S/P RADIATION DVT prophylaxis. Coumadin INR goal between 2 and 3 Full code DISPOSITION Observation status--> inpatient status with acute stroke PT/OT cleared for discharge Ok to discharge home today Updated son over phone via voice message Patient son requesting updates from providers. Mr. Fredo Schultz, contact #[phone] Subjective Patient is feeling much better. Double vision, left hand tingling, numbness has resolved. Patient has no new symptoms. No headache, nausea, vomiting, fever, chills. Eager to be discharged Physical Exam Physical Exam: GENERAL- AAOX3, No acute distress HEAD- Atraumatic, Normocephalic EYES- No pallor, icterus, redness, discharge. Pupils are equal, round, reactive to light and accomodation. EARS- Normal pinna, no discharge, tenderness noted NOSE- No nasal discharge noted NECK- Supple, no JVD LUNGS- Air entry bilaterally equal. No rales, rhonchi, crackles, wheezes heard. HEART- Regular rate and rhythm. No murmurs ABDOMEN- Soft, non tender, non distended, Bowel sounds heard. EXTREMITIES- Good peripheral pulses, no edema NEUROMUSCULAR- AAOX3, cranial nervesintact, power5/5 all extremities Results & Data Vital Signs (Past 12 Hours) Vital Signs Temp Pulse Pulse Resp BP Pulse Ox 12/30/18 08:00 64 12/30/18 07:26 36.6 C 66 18 148/81 H 92 12/30/18 03:53 36.9 C 77 18 106/68 97 12/30/18 00:51 62 (1) Stroke CVA mechanism: unspecified Qualified Code(s): I63.9 - Cerebral infarction, unspecified
--- NOTE | 2018-12-30 11:59 | Discharge Summary ---
Date of Service December 30, 2018 Admission HPI Per Admitting Provider History obtained from patient, family, and records. Medical history significant for CAD status post CABG, A. fib on Coumadin, history bioprosthetic MVR, hypertension, hyperlipidemia, DM 2 on oral meds, skin cancer status post surgery, prostate cancer status post radiation, past tobacco abuse. Recent confinement under orthopedics service last October 2018 for back surgery. Postop patient noted to be hypotensive. Transient visual disturbances noted. No acute pathology on brain MRI. This morning around 8 AM patient noted left hand tingling numbness. No neck pain. Double vision on both eyes without eye pain improved with covering one eye. No headache, no chest pain, no S OB. No recent trauma. Speech somewhat slurred which happens from time to time as per son. Compliant with home meds. At the ER, left hand tingling numbness currently improving as per patient. 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 Small acute pontine stroke Secondary diagnoses on discharge 1. CAD status post CABG 2. Hypertension 3. Hyperlipidemia 4. Diabetes mellitus type 2 5. History of prostate carcinoma status post radiation Discharge Exam GENERAL- AAOX3, No acute distress HEAD- Atraumatic, Normocephalic EYES- No pallor, icterus, redness, discharge. Pupils are equal, round, reactive to light and accomodation. EARS- Normal pinna, no discharge, tenderness noted NOSE- No nasal discharge noted NECK- Supple, no JVD LUNGS- Air entry bilaterally equal. No rales, rhonchi, crackles, wheezes heard. HEART- Regular rate and rhythm. No murmurs ABDOMEN- Soft, non tender, non distended, Bowel sounds heard. EXTREMITIES- Good peripheral pulses, no edema NEUROMUSCULAR- AAOX3, cranial nervesintact, power5/5 all extremities Discharge Data Allergies Allergy/AdvReac Type Severity Reaction Status Date / Time pollen extracts Allergy ID sneezing, Verified 12/28/18 22:30 Dust Mite Extract Allergy Mild Sneezing Uncoded 12/28/18 22:30 Consultations 12/28/18 22:15 ED Decision to Admit Stat 12/29/18 00:49 Consult Case Management - Discharge Planning Routine Consult Neurology Routine Ordered Studies 12/28/18 21:18 CT head/brain wo con Stat 12/29/18 00:49 MR angio head wo con Routine MR brain wo con Routine Hospital Course (1) Stroke: SMALL ACUTE PONTINE INFARCT Patient presented with left hand tingling numbness, double vision. Had double vision during last stay post operatively when MRI, CT did not show any acute findings. Risk factors: Hx PAF on Coumadin, INR slightly subtherapeutic -CT scan - No acute findings, MRI brain - small acute infarct in wang -Continue on ASA 81 mg daily. Gave a dose of Lovenox yesterday as INR 1.8. Now 2.0---> Continue with coumadin -Work up- MRA head/neck -negative for stenosis, LDL 90 (Goal<70); Echo done during recent admission so not repeated -Neurology consulted. Appreciate inputs. No new changes -PT/OT consultedno further recommendations CAD status post CABG history bioprosthetic MVR -Continue with aspirin, Coumadin, lisinopril, Toprol-XL HTN -Permissive hypertension -Continue with Toprol-XL with holding parameters. Restart lisinopril HYPERLIPIDEMIA -Continue with hyperlipidemia -Goal--LDL 70--> Will change to Atorvastatin 40 mg q HS from Lovastatin q HS DM 2 on oral meds, suboptimal control as of recent inpatient hemoglobin A1c of 8 last October 2018 SKIN CANCER POST SURGERY PROSTATE CARCINOMA S/P RADIATION DVT prophylaxis. Coumadin INR goal between 2 and 3 Full code DISPOSITION Observation status--> inpatient status with acute stroke PT/OT cleared for discharge Ok to discharge home today Updated son over phone via voice message Patient son requesting updates from providers. Mr. Fredo Schultz, contact #[phone] Total Time Total Time Spent Total Time Spent (In Minutes): 35 minutes Discharge Plan Discharge Items Patient Disposition: Home - Self-Care Reason For Visit: TIA Discharge Diagnosis: Acute stroke, pontine Discharge Goals: Decrease discomfort and Improve disease control Activity: Per 'Additional Instructions' section Activity Comment: As tolerated as prior to admission Driving/Machine Use Comment: NO DRIVING. Need to see mri ct tech before starting to drive again Non-emergency contact: Primary Care Provider Call non-emergency contact if: your symptoms worsen Follow-up/Referrals: Tawnya Traylor [Other] - 01/03/19 11:00 am Diet: Carb Consistent or DM2 and Heart Healthy Addtl Provider Instructions: MEDICATION CHANGES Lovastatin 40 mg changed to Atorvastatin 40 mg q HS Continue with coumadin as per prior to home dosing from today evening Recommend follow up with coumadin clinic Prescriptions: New atorvastatin 40 mg tablet 40 mg PO HS Qty: 30 RF: 0 Continued amoxicillin 500 mg Capsule 4 tab PO DIRECTED RF: 0 clonidine HCl [Catapres] 0.1 mg Tablet 0.1 mg PO TID RF: 0 repaglinide [Prandin] 2 mg Tablet 2 mg PO TIDM RF: 0 amiodarone 200 mg Tablet 100 mg PO QAM RF: 0 metoprolol succinate 50 mg Tablet Extended Release 24 Hr 50 mg PO QDL RF: 0 warfarin 2.5 mg Tablet 2.5 mg PO 5XWK RF: 0 aspirin [Aspirin Low Dose] 81 mg Tablet,Delayed Release (Dr/Ec) 81 mg PO QDL RF: 0 tramadol 50 mg Tablet 50 mg PO QAM PRN (Reason: Pain) RF: 0 acetaminophen 650 mg Tablet Extended Release 650 mg PO Q12H PRN (Reason: Pain) RF: 0 metronidazole 0.75 % Cream 1 applic TOPICAL BID RF: 0 nitroglycerin [Nitrostat] 0.4 mg Tablet, Sublingual 1 tab sublingual DIRECTED RF: 0 gabapentin 300 mg Capsule 300 mg PO BID RF: 0 digoxin 125 mcg Tablet 125 mcg PO QDL RF: 0 ipratropium bromide 0.03 % Barrett,Non-Aerosol 2 spray INTRANASAL BID PRN (Reason: BREATHING ISSUES) RF: 0 Januvia 50 mg Tablet 50 mg PO QDL RF: 0 diclofenac sodium 1 % Gel 2 g TOPICAL BID PRN (Reason: Pain) RF: 0 Invokana 300 mg Tablet 300 mg PO QAM RF: 0 tramadol [Ultram] 50 mg tablet 50 mg PO Q6H PRN (Reason: pain) Qty: 40 RF: 0 terazosin 5 mg Capsule 5 mg PO DAILY RF: 0 warfarin 2.5 mg Tablet 1.25 mg PO 2XWK RF: 0 Discontinued lovastatin 40 mg Tablet 40 mg PO PM RF: 0 Stand-Alone Forms: [facility] Discharge Orders: Discharge Order (Routine); Ordered 12/30/18 Ordered By: Kiki Howell Admission Data Admit Date/Time: 12/29/18 08:27 Attending Provider: Kiki Howell Admit Provider: Manan Yip Primary Care Provider: Ron Constantino Other Providers: Manan Yip ; Max Rowell Service: Telemetry Medical
[2018-12-30] MEDS ORDERED: STROKE PATIENT DISCHARGE STA (12:00)
[2018-12-30] MEDS: DIGOXIN 0.125 MG TAB PO SCH (12:29)
[2018-12-30] MEDS: ASPIRIN 81 MG ECTAB PO SCH (12:29)
[2018-12-30] MEDS: METOPROLOL SUCC 50MG EXT REL TAB PO SCH (13:22)
[2018-12-30] MEDS ORDERED: WARFARIN SOD 2.5 MG TAB PO SCH (16:00)
== END 2018-12-30 13:31 | disposition home or self-care (01) | DRG 66 ==
LOC: ED 21:09 → 2W 21:09